=== PATIENT | male | born 1945 | race Caucasian/White ===

== ENCOUNTER → 2020-03-21 | Outpatient (CLI) | payer MEDICARE ==
[~2020-03-21] VITALS: Ht 177 cm; Wt 110.0 kg
[~2020-03-21] MED LIST: BAMLANIVIMAB 700 MG in NS 200 ML IV ONE; EPINEPHrine INJECTION 1 MG/ML AMP IM PRN; diphenhydrAMINE 50 MG/ML INJ (BENADRYL) IV PRN
[2020-03-21 11:40] VITALS: BP 118/79
[2020-03-21 13:33] VITALS: BP 122/66
== END ==
LOC: INFUSION 11:10
PROVIDERS: ATTEND Nurse Practitioner Family
DX: U07.1 COVID-19 (principal)

== ENCOUNTER 2021-05-09 10:14 | Inpatient (IN) | payer MEDICARE ==
[~2021-05-09] VITALS: Ht 167.7 cm; Wt 97.8 kg
[2021-05-09] MEDS ORDERED: LACTULOSE SYRUP 10GM/15ML (ENULOSE) 30ML UDC PO PRN (12:30)
[2021-05-09] MEDS ORDERED: ACETAMINOPHEN 325 MG TABLET PO PRN (12:30)
[2021-05-09] MEDS ORDERED: diphenhydrAMINE 25 MG TAB (BENADRYL) PO PRN (12:30)
[2021-05-09] MEDS ORDERED: FLEET ENEMA ADULT 1 EA BTL PR PRN (12:30)
[2021-05-09] MEDS ORDERED: ONDANSETRON 4 MG (ZOFRAN) ORAL DISSOLVE TAB PO PRN (12:30)
[2021-05-09] MEDS ORDERED: LOPERAMIDE 2 MG (IMODIUM) TABLET PO PRN (12:30)
[2021-05-09] MEDS ORDERED: VANCOMYCIN INJECTION 1,000 MG in NS (IVPB) 250 ML IV SCH (12:30)
[2021-05-09] MEDS ORDERED: CALCIUM CARBONATE 500 MG (TUMS) TAB.CHEW PO PRN (12:30)
[2021-05-09] MEDS ORDERED: guaiFENesin/CODEINE (ROBITUSSIN AC) 10ML UDC PO PRN (12:30)
[2021-05-09] MEDS ORDERED: BISACODYL 10 MG SUPP (DULCOLAX) PR PRN (12:30)
[2021-05-09] MEDS ORDERED: DOCUSATE SODIUM 100 MG (COLACE) CAP PO PRN (12:30)
[2021-05-09] MEDS ORDERED: MELATONIN 3 MG TABLET PO PRN (12:30)
[2021-05-09] MEDS ORDERED: PIPERACILLIN SODIUM/TAZOBACTAM 4.5 GM in NS (IVPB) 100 ML IV SCH (12:30)
--- NOTE | 2021-05-09 12:30 | PM&R Post Admission Assessment ---
PM&R Date of Visit: May 09, 2021 Time of Visit: 14:00 History of Present Illness Chief complaint: Slow recovery following lumbar spine surgery from spondylosis of lumbar spine with myelopathy History of present illness: This is a 76-year-old white male of Dr. Perez who presents to inpatient rehab after transferred from [facility] status post admission for presumed postoperative infection 2 weeks after lumbar spine s urgery which was very complicated requiring 2 units of blood postoperatively and atrial fibrillation issues requiring modification of his regular medications. He was admitted due to severe pain and MRI showed no evidence of any infection or fluid collection. He was found to have aspiration pneumonia placed on Zosyn and vancomycin and blood cultures are positive for gram-positive cocci. Patient will have a PICC line placed. His is at the bedside. He remains with a Li catheter and will remove soon. He will be maintained on Plavix and Eliquis. Cardiology will be consulted for variation of atrial fibrillation rate. Past Nqpmauc-Rvcazq-Astmlm Hx Past Med/Social Hx: Reviewed Nursing Past Med/Soc Hx, Reviewed and Corrections made Patient Social History Marrital Status: Employed/Student: retired Alcohol Use: Denies Use Smoking Status: Former Smoker Past Medical History Surgeries: Orthopedic Respiratory: COPD, Pneumonia Currently Using CPAP: No Cardiac: Atrial Fibrillation, Cardiomyopathy, Chronic Edema/Swelling, Coronary Artery Disease, High Cholesterol, Hypertension Neurological: Neuropathy Genitourinary: Benign Prostatic Hyperpl, Renal Failure Gastrointestinal: Gastroesophageal Reflux Musculoskeletal: Arthritis, Chronic Back Pain Endocrine: Diabetes, Insulin dep PM&R Allergy/Meds/Data Review Allergies Coded Allergies: No Known Drug Allergies (Unverified , 03/21/20) Home Medications Scheduled Apixaban (Eliquis), 5 MG PO BID, (Reported) Clopidogrel Bisulfate (Plavix), 75 MG PO DAILY, (Reported) Diltiazem HCl (Diltiazem 24Hr ER), 300 MG PO DAILY, (Reported) Fluticasone Propionate (Flonase Allergy Relief), 2 SPRAY NSEACH HS, (Reported) Furosemide (Furosemide), 40 MG PO DAILY, (Reported) Lenalidomide (Revlimid), 10 MG PO HS, (Reported) Linaclotide (Linzess), 290 MCG PO DAILY, (Reported) Metformin HCl (Metformin HCl), 500 MG PO HS, (Reported) Metoprolol Succinate (Metoprolol Succinate), 50 MG PO BID, (Reported) Pantoprazole Sodium (Pantoprazole Sodium), 40 MG PO DAILY, (Reported) Spironolactone (Spironolactone), 25 MG PO DAILY, (Reported) Tamsulosin HCl (Flomax), 0.4 MG PO DAILY, (Reported) Vit A/Vit C/Vit E/Zinc/Copper (Preservision Areds Tablet), 1 EACH PO DAILY, (Reported) Scheduled PRN Albuterol Sulfate (Proair Hfa), 2 PUFF IH Q4H PRN for SHORTNESS OF BREATH, (Reported) Diclofenac Sodium (Voltaren Arthritis Pain), 1 APPLIC TP Q6H PRN for PAIN- BREAKTHROUGH, (Reported) Dicyclomine HCl (Dicyclomine HCl), 10 MG PO QID PRN for STOMACH CRAMPS, (Reported) Naloxone HCl (Naloxone HCl), 1 SPRAY NA UD PRN for OPIOID OVERDOSE, (Reported) Nitroglycerin (Nitroglycerin), 0.4 MG SL UD PRN for CHEST PAIN, (Reported) Polyethylene Glycol 3350 (Miralax), 17 GM PO DAILY PRN for CONSTIPATION-2ND LINE, (Reported) Discontinued Medications Colestipol HCl (Colestipol HCl), 1 GM PO, (Reported) Discontinued Reason: No Longer Taking Diltiazem HCl (Tiazac), 300 MG PO DAILY, (Reported) Discontinued Reason: Duplicate Order Current Medications Current Medications Reviewed Review of Systems Constitutional: see HPI, dizziness, malaise, weakness EENTM: no symptoms reported Respiratory: dyspnea on exertion Cardiovascular: no symptoms reported Gastrointestinal: no symptoms reported Genitourinary: other (Retention) Musculoskeletal: back pain Skin: see HPI Psychiatric/Neurological: Anxiety All Other Systems Reviewed Negative Unless Noted: Yes Physical Exam Physical Exam Vital Signs Capillary Refill : Height, Weight, BMI Height: '" Weight: lbs. oz. kg; BMI Method: General Appearance: No Apparent Distress, WD/WN, Chronically ill Eyes: Bilateral Eye Normal Inspection, Bilateral Eye PERRL HEENT: PERRL/EOMI, Normal ENT Inspection, Pharynx Normal Neck: Full Range of Motion, Normal Inspection, Non Tender, Supple, Carotid Bruit Respiratory: Chest Non Tender, Lungs Clear, Normal Breath Sounds, No Accessory Muscle Use, No Respiratory Distress Cardiovascular: No Edema, No Gallop, No JVD, No Murmur, Normal Peripheral Pulses, Irregularly Irregular Gastrointestinal: Normal Bowel Sounds, No Organomegaly, No Pulsatile Mass, Non Tender, Soft Back: CVA Tenderness (L), CVA Tenderness (R), Decreased Range of Motion, Vertebral Tenderness Extremity: Normal Capillary Refill, Normal Inspection, Normal Range of Motion, Non Tender, No Calf Tenderness, No Pedal Edema Neurologic/Psychiatric: Alert, Oriented x3, No Motor/Sensory Deficits, Normal 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, 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 Norm as Tested, Abnormal Gait, Motor Weakness (Generalized and legs 3/5) Skin: Normal Color, Warm/Dry Lymphatic: No Adenopathy PM&R Medical Assessment & Plan REHAB/MEDICAL ASSESSMENT AND PLAN: REHAB IMPAIRMENT GROUP: Lumbar spondylosis with myelopathy ETIOLOGIC DIAGNOSIS: Lumbar spondylosis with myelopathy The comorbidities that impact the patients function and/or functional outcome by: Advanced age, severe weakness, recent major lumbar spine surgery, aspiration pneumonia REHAB PLAN: The patient is being admitted to our comprehensive inpatient rehabilitation facility and can tolerate the intensity of service consisting of at least: 180 minutes of therapy a day, 5 out of 7 days a week Rehab treatment will consist of: PT and OT will focus on regaining function with the use of assistive devices in order to increase independence in ADLs to go back home with The patient/family has a good understanding of our discharge process and will benefit from an interdisciplinary inpatient rehabilitation program. The patient has potential to make improvement and is in need of at least two of the following multidisciplinary therapies including but not limited to physical, occupational, speech, and prosthetics and orthotics. Additionally the patient will need services from respiratory, nutritional services, wound care, psychology, etc. (Customize this to each patient). Given the patients complex condition and risk of further medical complications, rehabilitation services cannot be safely or effectively provided at a lower level of care such as a [facility] facility. BARRIERS TO DISCHARGE: Severe back pain ESTIMATED LOS: 10 days DISPOSITION: Home with RELEVANT CHANGES SINCE PREADMISSION SCREENING: I have compared the patients medical and functional status at the time of the preadmission screening and there are: No changes PROGNOSIS: Good REHABILITATION GOALS: 1. PT and OT will focus on regaining function with the use of assistive devices in order to increase independence in ADLs to go back home with All the above goals were reviewed with the patient and he/she is in agreement. By signing this document, I acknowledge that I have personally performed a full physical examination on this patient within 24 hours of admission to this inpatient rehabilitation facility and have determined the patient to be able to tolerate the above course of treatment at an intensive level for a reasonable period of time. I will be completing a detailed individualized Plan of Care for this patient by day #4 of the patients stay based upon the Preadmission Screen, the Post-Admission Evaluation, and the therapy evaluations. Admission Dx/Comorbidities: (1) Spondylosis of lumbar spine with myelopathy ICD Codes: M47.16 - Other spondylosis with myelopathy, lumbar region Assessment/Plan Assessment and Plan Assess & Plan/Chief Complaint Assessment: Lumbar spine surgery with slow recovery and failure at home due to spondylosis with myelopathy Aspiration pneumonia currently on Zosyn and Vanco Postoperative anemia received 2 units of blood 2 weeks ago Atrial fibrillation with variation in rate consulting cardiology CAD previous stents maintained on Plavix Hypertension Hyperlipidemia Li cath in place Bacteremia with gram-positive cocci PICC line was placed Plan: Pain control Li cath will be discontinued soon PICC line IV antibiotics Aggressive rehab DIANE DAMIAN DO May 09, 2021 12:30
[2021-05-09] MEDS ORDERED: METF-397 PO (12:58)
[2021-05-09] MEDS ORDERED: DICL20GE TP (12:58)
[2021-05-09] MEDS ORDERED: LINA290C PO (12:58)
[2021-05-09] MEDS ORDERED: CLOP75TA69 PO (12:58)
[2021-05-09] MEDS ORDERED: APIX5TAB PO (12:58)
[2021-05-09] MEDS ORDERED: METO50TA7 PO (12:58)
[2021-05-09] MEDS ORDERED: TMSL.4C PO (12:58)
[2021-05-09] MEDS ORDERED: RT-ALBUINH IH (12:58)
[2021-05-09] MEDS ORDERED: SPIR25TA5 PO (12:58)
[2021-05-09] MEDS ORDERED: FURO40TA4 PO (12:58)
[2021-05-09] MEDS ORDERED: DICY10CA12 PO (12:58)
[2021-05-09] MEDS ORDERED: COLE1TAB PO (12:58)
[2021-05-09] MEDS ORDERED: FLUT9.9S NSEACH (12:58)
[2021-05-09] MEDS ORDERED: NITR0.4T39 SL (12:58)
[2021-05-09] MEDS ORDERED: PANT40TA52 PO (12:58)
[2021-05-09] MEDS ORDERED: BETA1TAB15 PO (12:58)
[2021-05-09] MEDS ORDERED: DILT300C64 PO (12:58)
[2021-05-09] MEDS ORDERED: POLY17PO6 PO (12:58)
--- OUTSIDE RECORDS SUMMARY | 2021-05-09 12:59 | XMS REPORT | Clinical Summary ---
Author Author [facility] Organization [facility] Address Unknown Phone Unavailable Care Team Providers Care Return Clerk Name Role Phone ChrisCody PCP Annette Padilla MD Unavailable Source Comments Some departments are not documenting in the electronic medical record. If you d o not see the information that you expected, contact Release of Information in [facility] Health Information Management department at [phone] for further assistan ce in locating additional records.[facility] Allergies No known active allergies Medications End Date Status Medication Sig Dispensed Refills Start Date Active amiodarone (CORDARONE) Take 400 mg 0 02 200 mg tablet by mouth 0 daily. Active ELIQUIS 5 mg tablet Take 5 mg by 0 mouth twice 0 daily. Active baclofen (LIORESAL) 10 mg Take 10 mg by 0 / tablet mouth twice 0 daily. Active clopiDOGrel (PLAVIX) 75 Take 1 tablet 0 mg tablet by mouth 0 daily. Active furosemide (LASIX) 40 mg Take 40 mg by 0 08/24 tablet mouth daily. 0 Active lisinopriL (ZESTRIL) 5 mg Take 5 mg by 0 / tablet mouth daily. 0 Active metFORMIN (GLUCOPHAGE) Take 500 mg 0 02 500 mg tablet by mouth 0 twice daily. Active metoprolol XL (TOPROL XL) Take 50 mg by 0 07/21 50 mg extended release mouth twice 0 tablet daily. Active nitroglycerin (NITROSTAT) Place 0.4 mg 0 /0 0.4 mg tablet under tongue. 0 Dissolve one tab under the tongue every 5 min as needed for chest pain. Do not exceed a total of 3 doses in 15 min. Active ondansetron (ZOFRAN ODT) Dissolve 1 0 09/04 4 mg rapid dissolve tablet by 0 tablet mouth three times daily as needed. Active traMADoL (ULTRAM) 50 mg Take 50 mg by 0 tablet mouth four 0 times daily as needed. Active docusate (COLACE) 100 mg Take 100 mg 0 capsule by mouth twice daily. Active aspirin EC 81 mg tablet Take 81 mg by 0 mouth daily. Take with food. Active polyethylene glycol 3350 Take by 0 (MIRALAX PO) mouth as Needed. Active MAGNESIUM CITRATE PO Take 5 oz by 0 mouth as Needed. Active famotidine (PEPCID) 40 mg Take 40 mg by 0 tablet mouth daily. Active fluticasone propionate Apply 1 spray 0 (FLONASE) 50 to each mcg/actuation nasal nostril as spray, suspension directed daily. Shake bottle gently before using. Active metoclopramide (REGLAN) Take 10 mg by 0 10 mg tablet mouth before meals and at bedtime. Active pantoprazole DR Take 40 mg by 0 (PROTONIX) 40 mg tablet mouth every 1 12 hours. Active HYDROcodone/acetaminophen TAKE 1 TO 2 0 /2 (NORCO) 5/325 mg tablet TABLETS BY 1 MOUTH EVERY 8 HOURS NEEDED FOR CANCER PAIN Active acyclovir (ZOVIRAX) 400 Take 400 mg 0 mg tablet by mouth 1 twice daily. Active Problems Problem Noted Date Multiple myeloma not having achieved remission 09/09 Last Assessment & Plan: Formatting of this note might be differ ent from the original. A 74-year-old male patient wi th a known history of coronary disease, CABG in 2012, atrial fibrillat ion, hypertension, diabetes mellitus who was complaining of chest pain and l ower back pain that has been worsening. During evaluation he had an MRI that showed T8 12 mass with cord compression and required patient t o had surgery with a laminectomy, the biopsy of the mass showed plasmacyt radha and due to that patient had an extensive work-up including a bone coretta ow biopsy that showed 5% monoclonal plasma cell with kappa expression plasm a cell neoplasm. A PET CT scan did not show any lytic lesions. Also his m yeloma markers were consistent with mild elevation of the serum free kappa light chain. 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 I had a prolonged discussion with the p atient/family in regard to diagnosis is consistent with solitary p lasmacytoma with a recommendation to proceed with radiation therapy Recommendation: Proceed with radiation therapy Patient will need to have laboratory te st every 3 months in the first year and then switch to every 6 months which include CBC/CMP/SPEP/total immunoglobulin/serum free light chain Recommend to consider MRI of the lumbar spine at least once a year Iron deficiency anemia 09/10/2019 Last Assessment & Plan: Formatting of this note might be differ ent from the original. Pt has a Hb of 9.5, with absent iron st orage, pt states that he is unable to tolerate the PO replacement. Possibl e will benefit from IV iron if unable to tolerate that Essential hypertension Last Assessment & Plan: Formatting of this note might be differ ent from the original. On Metoprolol and lisinopril Diabetes mellitus Last Assessment & Plan: Formatting of this note might be differ ent from the original. On Metformin Atrial fibrillation Last Assessment & Plan: Formatting of this note might be differ ent from the original. On Amiodarone and Eliquis per his cardi ologist Surgical History Surgery Date Site/Laterality Comments HX HEMORRHOIDECTOMY 03/22/1996 - 03/21/1997 HX ROTATOR CUFF REPAIR 03/22/2003 - 03/21/2004 CARDIOVERSION 07/21/2019 - 08/20/2019 KNEE REPLACEMENT 03/22/2004 - Left 03/21/2005 KNEE REPLACEMENT 03/22/2009 - Right 03/21/2010 CARDIAC SURGERY 03/22/2012 - tripple bypass 04/21/2012 Medical History Medical History Date Comments Arthritis Back pain Diabetes (HCC) Heart disease High blood pressure Macular degeneration Essential hypertension Diabetes mellitus (HCC) Atrial fibrillation (HCC) Coronary artery disease Family History Medical History Relation Name Comments None Reported Father None Reported Mother Relation Name Status Comments Father Mother Social History Date Tobacco Use Types Packs/Day Years Used Quit: 03/2012 Former Smoker Cigarettes 1 50 Smokeless Tobacco: Never Used Comments Alcohol Use Standard Drinks/Week Not Currently 0 (1 standard drink = 0.6 o z pure alcohol) Sex Assigned at Date Recorded Male 09/07/2019 10:39 AM CDT Obstetrics History Last Filed Vital Signs Reading Time Taken Comments Vital Sign 125/86 08/14/2020 4:00 PM CDT Blood Pressure 104 08/14/2020 4:06 PM CDT Pulse 36.7 C (98.1 F) 08/14/2020 3:35 PM CDT Temperature - - Respiratory Rate 92% 08/14/2020 4:06 PM CDT Oxygen Saturation - - Inhaled Oxygen Concentration 104.8 kg (231 lb) 08/14/2020 2:32 PM CDT Weight 180.3 cm (5' 11") 08/14/2020 2:32 PM CDT Height 32.22 08/14/2020 2:32 PM CDT Body Mass Index Plan of Treatment Health Maintenance Due Date Last Done Comments HBA1C 1945 MEDICARE ANNUAL WELLNESS 1943 VISIT PNEUMONIA (PPSV23) 1949 VACCINE (1 of 4 - PCV13) DILATED EYE EXAM 1961 DTAP/TDAP VACCINES (1 - 1961 Tdap) FOOT EXAM 1961 HEPATITIS C SCREENING 1961 PHYSICAL (COMPREHENSIVE) 1961 EXAM SHINGLES RECOMBINANT 1993 VACCINE (1 of 2) INFLUENZA VACCINE 10/20/2020 02/01/2020 Results Not on filefrom Last 3 Months Insurance Type Payer Benefit Subscriber ID Effective Phone Address Plan / Dates Group Medicare MEDICARE MEDICARE [id number] [phone]- [phone] [address] [place] [address] [employer] AETNA [id number] 2017-P [phone] [id number] [place] [address] [place] (Home) [place] [phone] Advance Directives Patient Cheese Pancake Roller Explanation Type Date Recorded Advance Directive/DPOA Care Teams Start Date End Date Return Clerk Relationship Specialty 09/04/19 Cody Perez DO PCP - General Family [address] Medicine [place] [id number] 09/11/19 Annette Padilla MD [address] [address]
[2021-05-09] MEDS ORDERED: DILT300C52 PO (13:13)
[2021-05-09] MEDS ORDERED: LENA10CA PO (13:13)
--- NOTE | 2021-05-09 13:13 | ST Cognitive Linguistic Eval ---
Speech Evaluation-General Therapy Diagnosis Therapy Diagnosis: Cognitive Linguistic Skills WNL Precautions Precautions: Fall Precautions/Isolations: Standard Precautions Referral Referring Physician: Dr. Ruthann Dooley Reason for Referral: Evaluation/Treatment Medical History Current History The patient is a 76 year-old male with a past medical history of lumbar stenosis with neurogenic claudication, s/p L4-S1 right TLIF/posterior spinal fusion and L2 pelvis extension of fusion (04/21/21) with recent re-admission on 05/07/21 with wound drainage and pneumonia. Reviewed History: Yes Speech PLF-Current Status Prior Level of Function The patient was independent with ADL's and used a FWW. Subjective The patient was lying in bed, awake and alert upon entrance to the patient's room. The patient greeted the clinician appropriately and was agreeable to participation in the cognitive linguistic assessment. The patient denied any recent changes or concerns with his speech, language or cognitive abilities. Language Eval: Auditory Comprehends Simple Yes/No Ques: Functional Indent/Objects Multiple Gonzalez: Functional Follows 1-Step Commands: Functional Follows Complex Directions: Functional Follows General Conversations: Functional Language Eval: Verbal Language Completes Spontaneous Greeting: Functional Produces Auto, Serial Info: Functional Imitates Simple Words/Phrases: Functional Word Finding: Functional Requests Basic Needs: Functional States Basic Personal Info: Functional Expresses Complex Ideas: Functional Language Evaluation: Reading Follows Simple Written Direct: Functional Cognitive Patient Orientation The patient was independently oriented to self, location, month, day of week, and year. Objective Cognitive Domain Attention: WNL Memory: WNL Problem Solving: Functional Executive Functions: WNL Composite Severity Rating: WNL Objective Formal/Standardized Tests [facility] ([facility]) Results The patient demonstrated a result of +29/30 on the UMS correlating to a neuro cognitive ability WNL. Oral Motor/Speech Production The patient does not display dysarthria or apraxia of speech throughout the evaluation. The patient is 100% intelligible in known and unknown contexts. Impression The patient demonstrated neurocognitive skills within normal limits. The patient displayed one error during delayed recall, as he was able to recall four of five single words, independently. Speech Patient Assess Expression of Ideas/Wants: Expression (4) Understanding Verbal Content: Understands (4) Brief Interview-Mental Status: Yes Repetition of Three Words: Three (3) Temporal Orientation: Year: Correct (3) Temporal Orientation: Month: Accurate within 5 days(2) Temporal Orientation: Day: Correct (1) Recall : Wear to say "Sock": Yes, no cue required (2) Recall : Color: Yes, no cue required (2) Recall : Bed: Yes,after cueing (1) Memory/Recall Ability: Current season, That he or she is in a hsp/hsp unit Speech-Plan Patient/Family Goals Patient/Family Goals: The patient wishes to return home with family. Treatment Plan Speech Therapy Treatment Plan: Discontinue ST Frequency: 1 time per week Estimated Hrs Per Day: .5 hour per day Rehab Potential: Fair Pt/Family Agrees to Plan: Yes Safety Risks/Education Teaching Recipient: Patient, Family Teaching Methods: Discussion Response to Teaching: Verbalize Understanding Education Topics Provided: Plan of Care Time Speech Therapy Time In: 12:30 Speech Therapy Time Out: 13:00 Total Billed Time: 30 Billed Treatment Time 1, ADNIELA MCNEILL [facility] [address] May 09, 2021 13:13
[2021-05-09] MEDS ORDERED: NALO4SPR3 (13:19)
[2021-05-09] MEDS ORDERED: PIPERACILLIN SODIUM/TAZOBACTAM 4.5 GM in NS (IVPB) 100 ML IV NR (14:00)
[2021-05-09] MEDS ORDERED: VANCOMYCIN 1,750 MG/NS 500 ML IVPB IV NR ×2 (14:00)
[2021-05-09] MEDS ORDERED: CATHETER FLUSH 10 ML SYR IV PRN (14:00)
--- NOTE | 2021-05-09 14:01 | Physical Therapy Evaluation ---
PT Evaluation-General Medical Diagnosis Admission Date May 09, 2021 at 12:30 Medical Diagnosis: lumbar stenosis with neurogenic claudication Onset Date: May 07, 2021 Therapy Diagnosis Therapy Diagnosis: impaired mobility, strength, endurance Precautions Precautions/Isolations: Standard Precautions Weight Bear Status back precautions Referral Physician: Ruthann Dooley DO Reason for Referral: Evaluation/Treatment Medical History Additional Medical History s/p L4-S1 R TLIF, posterior fusion and L2 pelvis extension and fusion, readmitted 04/06 for wound drainage and PNA Reviewed History: Yes Social History Home: Single Level Current Living Status: Spouse Entry Into Home: Stairs With Railing Prior Prior Level of Function SCALE: Activities may be completed with or without assistive devices. 6-Bmoxdwttxf-frzryyh completes the activity by him/herself with no assistance from a helper. 5-Set-up or Clean-up Assistance-helper sets up or cleans up; patient completes activity. [place] assists only prior to or following the activity. 4-Supervision or Touching Assistance-helper provides verbal cues and/or touching/steadying and/or contact guard assistance as patient completes activity. Assistance may be provided throughout the activity or intermittently. 3-Partial/Moderate Assistance-helper does LESS THAN HALF the effort. [place] lifts, holds or supports trunk or limbs, but provides less than half the effort. 2-Substantial/Maximal Assistance-helper does MORE THAN HALF the effort. [place] l ifts or holds trunk or limbs and provides more than half the effort. 0-Tkdjinldw-pwqfwv does ALL the effort. Patient does none of the effort to complete the activity. Or, the assistance of 2 or more helpers is required for the patient to complete the activity. If activity was not attempted, code reason: 7-Patient Refused. 9-Not Applicable-not attempted and the patient did not perform the activity before the current illness, exacerbation or injury. 10-Not Attempted due to Environmental Limitations-(lack of equipment, weather restraints, etc.). 88-Not Attempted due to Medical Conditions or Safety Concerns. Bed Mobility: 6 Transfers (B,C,W/C): 6 Gait: 6 Stairs: 6 Indoor Mobility (Ambulation): Independent Stairs: Independent most recently using a rolling walker but previous to recent surgeries was using a SPC PT Evaluation-Current Subjective Patient in bed pre tx, agrees to PT, has 8/10 back pain, nurse notified. Will be co-treating with OT due to poor patient mobility, strength, endurance, severe pain with activity, coordinate UE and LE with activity, safety and reduce risk of falls. Pt/Family Goals to be independent at home Objective Patient Orientation: Person, Place, Situation back brace ROM/Strength ROM Lower Extremities WNL Strength Lower Extremities LLE (hip flexion 4/5, knee flexion 5/5, knee extension 5/5, dorsiflexion 5/5), RLE (hip flexion 3-/5, knee flexion 4/5, knee extension 4/5, dorsiflexion 4/5) Sensory Sensation Right Lower Extremit: Intact Sensation Left Lower Extremity: Intact Transfers Roll Left & Right (QC): 3 Sit to Lying (QC): 3 Lying to Sitting/Side of Bed(Q: 3 Sit to Stand (QC): 4 Chair/Wvz-fq-Llkeb Xfer(QC): 4 Toilet Transfer (QC): 4 Car Transfer (QC): 4 Patient performs rolling and supine <-> sit with min assist, sit <-> stand and transfers with CGA, car transfer CGA. Patient needs occasional cues for safety or positioning, training for log roll Gait Does the Patient Walk?: Yes Mode of Locomotion: Walk Anticipated Mode of Locomotion: Walk Walk 10 feet (QC): 4 Walk 50 ft with 2 Turns(QC): 4 Walk 150 ft (QC): 88 Walking 10ft/uneven surface-QC: 4 Distance: 50'x2 Gait Assistive Device: FWW Comments/Gait Description Patient can ambulate 50' with a rolling walker with CGA (including 50' with at least 2 turns of 90 degrees and 10' over an uneven surface), gait is antalgic, slow, but steady, slumped posture Wheelchair Training Does the Pt Use a Wheelchair?: No Wheel 50 ft with 2 turns (QC): 9 Wheel 150 ft (QC): 9 Stairs #of Steps: 1 1 Step (curb) (QC): 4 4 Steps (QC): 88 12 Steps (QC): 88 Walking Assistive Device: Walker Patient can go up and down 1 step using a rolling walker with CGA, cues for foot placement Balance Sitting Static: Good Sitting Dynamic: Good Standing Static: Good Standing Dynamic: Good Picking up an Object (QC): 4 (CGA using fly rail operator) Treatment Patient performed some dressing and bathing sitting at the EOB, patient also toileted for a BM, did toilet transfer with CGA. PT performed bed mobility and transfers, ambulation, stair training, toilet transfers, standing and positioning during dressing and bathing, OT performed dressing, bathing, toileting, UE positioning and safety during activity. Assessment/Needs Patient in recliner post tx, TAKER OFF DRYING KILN will take over from here. Patient has impaired mobility, strength, endurance, severe pain with activity. Transfers and ambulation are just CGA but needs min assist for supine to sit. Rehab Potential: Fair PT Short Term Goals Short Term Goals Time Frame: May 16, 2021 Roll Left & Right: 4 (SBA) Sit to lyin (SA) Lying to sitting on side of be: 4 (SBA) Sit to stand: 4 (SBA) Chair/psz-ly-sgoix transfer: 4 (SBA) Walk 10 feet: 4 (SBA) Walk 50 feet with two turns: 4 (SBA) Walk 150 feet: 4 (SBA) PT Care Home Goals Software Computer Specialist Goals PT Software Computer Specialist Goals Time Frame: May 30, 2021 Roll Left & Right (QC): 6 Sit to Lying (QC): 6 Lying-Sitting on Side/Bed(QC): 6 Sit to Stand (QC): 6 Chair/Lss-db-Jnvlk Xfer(QC): 6 Toilet Transfer (QC): 6 Car Transfer (QC): 6 Does the Patient Walk: Yes Walk 10 feet (QC): 6 Walk 50ft with 2 Turns (QC): 6 Walk 150 ft (QC): 6 Walking 10ft on Uneven Surface: 6 1 Step (curb) (QC): 4 (SBA) 4 Steps (QC): 4 (SBA) 12 Steps (QC): 88 Picking up an Object (QC): 6 Wheel 50 feet with 2 turns (QC: 9 Wheel 150 feet: 9 PT Plan Problem List Problem List: Activity Tolerance, Functional Strength, Safety, Balance, Gait, Transfer, Bed Mobility, ROM Treatment/Plan Treatment Plan: Continue Plan of Care Treatment Plan: Bed Mobility, Education, Functional Activity Catracho, Functional Strength, Group Therapy, Gait, Safety, Therapeutic Exercise, Transfers Treatment Duration: May 30, 2021 Frequency: At least 5 of 7 days/Wk (IRF) Estimated Hrs Per Day: 1.5 hours per day Patient and/or Family Agrees t: Yes Safety Risks/Education Patient Education: Gait Training, Transfer Techniques, Steps, Reviewed Precautions, Correct Positioning, Reviewed Don/Doff Brace, Safety Issues Teaching Recipient: Patient Teaching Methods: Demonstration, Discussion Response to Teaching: Reinforcement Needed Discharge Recommendations Plan Patient will perform bed mobility and transfer training, balance and endurance training, functional strengthening, stair training, gait training, and education, to improve functional mobility and independence at home. Therapy Discharge Recommendati: Home & Family Time/GCodes Time In: 1310 Time Out: 1350 Total Billed Treatment Time: 40 Total Billed Treatment 1 visit EVM 10' FA 30' GILDARDO GUERRA PT May 09, 2021 14:01
--- NOTE | 2021-05-09 14:03 | Occupational Therapy Eval ---
OT Evaluation-General/PLF Medical Diagnosis Admission Date May 09, 2021 at 12:30 Medical Diagnosis: s/p Lumbar stenosis Onset Date: May 07, 2021 Therapy Diagnosis Therapy Diagnosis: reduced adl status Precautions Precautions/Isolations: Fall Prevention, Standard Precautions Comments spinal precautions Back brace on when OOB Referral Physician: Soumya Mccollum Reason: Evaluation/Treatment Medical History Pertinent Medical History: Atrial Fib, CAD, DM, GERD, Heart Failure, HTN, Macular Degenertion Additional Medical History Anemia, cancer Current History s/p L4-S1 R TLIF, posterior fusion and L2 pelvis extension and fusion, readmitted 04/06 for wound drainage and PNA Pt lives in a single story home with his . Post surgery he reports that he went home and was indep with adls except needed assist with donning sock/shoes. His performs all the IADLS. He was using a cane prior to back surgery and using a walker post surgery. Reviewed History: Yes Social History Home: Single Level Current Living Status: Spouse Entry Into Home: Stairs With Railing Steps Into Home: 2 ADL-Prior Level of Function SCALE: Activities may be completed with or without assistive devices. 3-Glddeogfur-lgvgfff completes the activity by him/herself with no assistance from a helper. 5-Set-up or Clean-up Assistance-helper sets up or cleans up; patient completes activity. [place] assists only prior to or following the activity. 4-Supervision or Touching Assistance-helper provides verbal cues and/or touching/steadying and/or contact guard assistance as patient completes activity. Assistance may be provided throughout the activity or intermittently. 3-Partial/Moderate Assistance-helper does LESS THAN HALF the effort. [place] lifts, holds or supports trunk or limbs, but provides less than half the effort. 2-Substantial/Maximal Assistance-helper does MORE THAN HALF the effort. [place] lifts or holds trunk or limbs and provides more than half the effort. 3-Usicealsb-utrxdz does ALL the effort. Patient does none of the effort to complete the activity. Or, the assistance of 2 or more helpers is required for the patient to complete the activity. If activity was not attempted, code reason: 7-Patient Refused. 9-Not Applicable-not attempted and the patient did not perform the activity before the current illness, exacerbation or injury. 10-Not Attempted due to Environmental Limitations-(lack of equipment, weather restraints, etc.). 88-Not Attempted due to Medical Conditions or Safety Concerns. Self Care: Needed Some Help Functional Cognition: Independent DME/Equipment: Tub, Tub/Shower Drive Self: Yes OT Current Status Subjective Pt with severe pain in back, reports 8/10. Unsure of last pain meds. Co-treat with PT for part of session secondary to poor activity tolerance, high pain levels, and need of 2 skilled clinicians to progress indep with adls and transfers. Appearance Pt left sitting on toilet, MARRERO in room to take over treatment. Mental Status/Objective Patient Orientation: Person, Place, Situation Attachments: IV Current Hearing Aids: No Dentures/Partials: Yes Hand Dominance: Right Upper Extremity Strength Not tested secondary to recent back surgery ADL-Treatment Eating (QC): 6 Oral Hygiene (QC): 4 (pt reports he only rinses dentures. Able to perform standing at sink with CGA) Shower/Bathe Self (QC): 3 Upper Body Dressing (QC): 10 (no appropriate size clothing available at time of eval) Lower Body Dressing (QC): 2 On/Off Footwear (QC): 2 Toileting Hygiene (QC): 3 (Assist with yolis care) Pt sidelying in bed at OT arrival. Able to sit EOB with min A. Pt declines shower, agreeable to sponge bath seated EOB. Post set up, he was able to wash upper body, thighs, and down to left foot with use of cross over method and extra effort. Pt unable to lift R foot high enough off floor due to pain, assist needed. Pt could benefit from instruction on AE for LB dressing/bathing. He was able to stand with CGA to wash front yolis area. Attempt to reach backside, but unable without twisting or bending, thus assist required. Due to pain, assist required to thread BLE's into brief after effortful attempt. He stood to cake puller hips with CGA. Again, he was able to cross L foot with extra effort but required max a to thread sock over toes. Dependent to don L sock. Pt able to recall 2/3 spinal precautions. Other Treatments Pt ambulated ~50 feet x2 with CGA and use of walker. He fatigues quickly secondary to increase in pain. Several seated rest breaks required during session. Education OT Patient Education: Correct positioning, Energy conservation, Modified ADL techniques, Purpose of tx/functional activities, Reviewed precautions, Rehab process, Safety issues, Transfer techniques Teaching Recipient: Patient Teaching Methods: Demonstration, Discussion Response to Teaching: Verbalize Understanding, Return Demonstration, Reinforcement Needed OT Short Term Goals Short Term Goals Time Frame: May 16, 2021 Eatin Oral hygiene: 6 Toileting hygiene: 5 Shower/bathe self: 4 Upper body dressin Lower body dressin Putting on/taking off footwear: 3 OT Systems Technologist Goals Correction Goals Time Frame: May 23, 2021 Eating (QC): 6 Oral Hygiene (QC): 6 Toileting Hygiene (QC): 6 Shower/Bathe Self (QC): 5 Upper Body Dressing (QC): 6 Lower Body Dressing (QC): 6 On/Off Footwear (QC): 5 1=Demonstrate adherence to instructed precautions during ADL tasks. 2=Patient will verbalize/demonstrate understanding of assistive device s/modifications for ADL. 3=Patient will improve strength/tolerance for activity to enable patient to perform ADL's. OT Education/Plan Problem List/Assessment Assessment: Decreased Activ Tolerance, Decreased UE Strength, Impaired Bed Mobility, Impaired Funct Balance, Impaired Self-Care Skills Discharge Recommendations Plan/Recommendations: Continue POC Therapy Discharge Recommendati: Home & Family, Post Acute OT (home health OT) Equpiment Recommendations-D/C: Bath Chair, Pediatric Sports Medicine Specialist, Sock Aide Treatment Plan/Plan of Care Treatment,Training & Education: Yes Patient would benefit from OT for education, treatment and training to promote independence in ADL's, mobility, safety and/or upper extremity function for ADL's. Plan of Care: ADL Retraining, Functional Mobility, Group Exercise/Act as Ind, UE Funct Exercise/Act Treatment Duration: May 23, 2021 Frequency: At least 5 of 7 days/Wk (IRF) Estimated Hrs Per Day: 1.5 hours per day Agreement: Yes Rehab Potential: Good Time/GCodes Start Time: 13:00 Stop Time: 13:55 Total Time Billed (hr/min): 45 Billed Treatment Time 1 visit EVM (10 min) ADL x2 (35 min) OT eval ([id number]) PT eval ([id number]) Co-treat ([id number]) Simona Paul OT May 09, 2021 14:03
[2021-05-09] MEDS: CATHETER FLUSH 10 ML SYR IV SCH ×2 (14:27→20:37)
[2021-05-09] MEDS ORDERED: DICLOFENAC 1% GEL 100 GM (VOLTAREN) TUBE TP PRN (14:30)
[2021-05-09] MEDS ORDERED: DICYCLOMINE 10 MG (BENTYL) CAP PO PRN (14:30)
[2021-05-09] MEDS ORDERED: NITROGLYCERIN 0.4 MG SL TABS BTL 25'S SL PRN (14:30)
[2021-05-09] MEDS ORDERED: polyethylene glycoL POWDER 17 GM (MIRALAX) PACK PO PRN (14:30)
[2021-05-09] MEDS ORDERED: RT-ALBUTEROL SULF 2.5 MG/3 ML PRE-MIX VIAL IH PRN (14:30)
[2021-05-09] MEDS ORDERED: HYDROcodone/APAP 5 MG/325 MG (LORTAB) TAB ONE (14:35)
--- NOTE | 2021-05-09 14:36 | Physical Therapy Daily Note ---
PT Daily Note-Current Subjective Pt. agreeable to co Rx PT OT for functional mobility , positioning, and education. Pt. c/o 8/10 pain and requires 2 clinicians for safety and coordinated treatment . Pt. shares his home situation and recent medical history. Pt. states he has had quite the ordeal in the past couple years and mentions multiple surgeries and "bone marrow cancer" Pain Numeric Pain Scale: 8 Location: Medial Location Body Site: Back Pain Description: Pressure Appearance pt. whinces with pain and turns head slightly as he shares he is hard of hearing as well as not able to read lips b/c of MD Mental Status Patient Orientation: Normal For Age Attachments: Li Catheter Transfers SCALE: Activities may be completed with or without assistive devices. 5-Bhgsozpazo-xpoqrqi completes the activity by him/herself with no assistance from a helper. 5-Set-up or Clean-up Assistance-helper sets up or cleans up; patient completes activity. [place] assists only prior to or following the activity. 4-Supervision or Touching Assistance-helper provides verbal cues and/or touching/steadying and/or contact guard assistance as patient completes activity. Assistance may be provided throughout the activity or intermittently. 3-Partial/Moderate Assistance-helper does LESS THAN HALF the effort. [place] lifts, holds or supports trunk or limbs, but provides less than half the effort. 2-Substantial/Maximal Assistance-helper does MORE THAN HALF the effort. [place] lifts or holds trunk or limbs and provides more than half the effort. 6-Pqtjucnlo-uojvic does ALL the effort. Patient does none of the effort to complete the activity. Or, the assistance of 2 or more helpers is required for the patient to complete the activity. If activity was not attempted, code reason: 7-Patient Refused. 9-Not Applicable-not attempted and the patient did not perform the activity before the current illness, exacerbation or injury. 10-Not Attempted due to Environmental Limitations-(lack of equipment, weather restraints, etc.). 88-Not Attempted due to Medical Conditions or Safety Concerns. Sit to Stand (QC): 4 sit to stand from toilet and recliner min to mod. pt. able to push himself up in recliner with instruction with chair back partially reclined Weight Bearing back precautions Gait Training Does the Patient Walk?: Yes Walk 10 feet (QC): 4 Gait Assistive Device: FWW 25ft x 2 to from toilet with FWW CGA Treatments ice bag applied to low back area, warm blanket applied, repositioned in recliner for low back comfort, pillow at sides, pillow under knees, all in effort to ease low back pain. Nursing aware of pts c/o. Orientation to [facility] as well as what to expect this evening and this weekend. Meal brought, pt attempts to eat , states his taste has been off quite some time Assessment pt. gives full effort, trying to find relief from pain at this point PT Short Term Goals Short Term Goals Time Frame: May 16, 2021 Roll Left & Right: 4 (SBA) Sit to lyin (SA) Lying to sitting on side of be: 4 (SBA) Sit to stand: 4 (SBA) Chair/dcl-gi-ttskh transfer: 4 (SBA) Walk 10 feet: 4 (SBA) Walk 50 feet with two turns: 4 (SBA) Walk 150 feet: 4 (SBA) PT Microsoft Dynamics Consultant Goals Microsoft Dynamics Consultant Goals PT Microsoft Dynamics Consultant Goals Time Frame: May 30, 2021 Roll Left & Right (QC): 6 Sit to Lying (QC): 6 Lying-Sitting on Side/Bed(QC): 6 Sit to Stand (QC): 6 Chair/Wst-tp-Jeyny Xfer(QC): 6 Toilet Transfer (QC): 6 Car Transfer (QC): 6 Does the Patient Walk: Yes Walk 10 feet (QC): 6 Walk 50ft with 2 Turns (QC): 6 Walk 150 ft (QC): 6 Walking 10ft on Uneven Surface: 6 1 Step (curb) (QC): 4 (SBA) 4 Steps (QC): 4 (SBA) 12 Steps (QC): 88 Picking up an Object (QC): 6 Wheel 50 feet with 2 turns (QC: 9 Wheel 150 feet: 9 PT Plan Treatment/Plan Treatment Plan: Continue Plan of Care Treatment Plan: Bed Mobility, Education, Functional Activity Catracho, Functional Strength, Group Therapy, Gait, Safety, Therapeutic Exercise, Transfers Treatment Duration: May 30, 2021 Frequency: At least 5 of 7 days/Wk (IRF) Estimated Hrs Per Day: 1.5 hours per day Patient and/or Family Agrees t: Yes Safety Risks/Education Patient Education: Transfer Techniques, Correct Positioning, Disease Process, Safety Issues Teaching Recipient: Patient Teaching Methods: Demonstration, Discussion Response to Teaching: Verbalize Understanding, Return Demonstration, Reinforcement Needed Time/GCodes Time In: 1350 Time Out: 1425 Total Billed Treatment Time: 35 Total Billed Treatment 1,FA35m, (co Rx w OT 35m) KEIKO COLBY CONTRACTOR GENERAL BUILDING May 09, 2021 14:36
--- NOTE | 2021-05-09 14:51 | Occupational Ther Daily Note ---
OT Current Status-Daily Note Subjective Pt alert, sitting in recliner. Took over pt from OTR/L. Pt c/o pain 10/29, reported to nrsg. Cold pack to area then positioned for comfort, nrsg brought Tylenol. Mental Status/Objective Patient Orientation: Person, Place, Time, Situation Attachments: Li Catheter, IV, Other-See Comments (back brace) ADL-Treatment Pt requires set up to open containers/packages then uses regular utensils to eat. Pt did not eat much of meal due to increased pain, see above note on addressing pain. Therapy Code Descriptions/Definitions Functional [place] Measure: 0=Not Assessed/NA 4=Minimal Assistance 1=Total Assistance 5=Supervision or Setup 2=Maximal Assistance 6=Modified [place] 3=Moderate Assistance 7=Complete IndependenceSCALE: Activities may be completed with or without assistive devices. 9-Bipxwndslk-wfedyul completes the activity by him/herself with no assistance from a helper. 5-Set-up or Clean-up Assistance-helper sets up or cleans up; patient completes activity. [place] assists only prior to or following the activity. 4-Supervision or Touching Assistance-helper provides verbal cues and/or touching/steadying and/or contact guard assistance as patient completes activity. Assistance may be provided throughout the activity or intermittently. 3-Partial/Moderate Assistance-helper does LESS THAN HALF the effort. [place] lifts, holds or supports trunk or limbs, but provides less than half the effort. 2-Substantial/Maximal Assistance-helper does MORE THAN HALF the effort. [place] lifts or holds trunk or limbs and provides more than half the effort. 2-Ublcfvofc-heqeyg does ALL the effort. Patient does none of the effort to complete the activity. Or, the assistance of 2 or more helpers is required for the patient to complete the activity. If activity was not attempted, code reason: 7-Patient Refused. 9-Not Applicable-not attempted and the patient did not perform the activity before the current illness, exacerbation or injury. 10-Not Attempted due to Environmental Limitations-(lack of equipment, weather restraints, etc.). 88-Not Attempted due to Medical Conditions or Safety Concerns. Eating (QC): 5 Co-treat with PT, skills of 2 clinicians required to decrease pain, increase activity tolerance due to pt's decreased stamina. Other Treatment Pt able to assist with positioning in recliner while laying flat by pushing with B UE/LE. Discussion on pt's home environment. Pt has tub transfer bench for tub/shower in 's bathroom that he has been using already. Pt able to describe the transfer correctly. Pt also stated that in 's bathroom that there is a taller toilet and that he is using this for toileting. After therapy, pt positioned comfortably in recliner with call light/phone in reach. All needs met in room. OT Short Term Goals Short Term Goals Time Frame: May 16, 2021 Eatin Oral hygiene: 6 Toileting hygiene: 5 Shower/bathe self: 4 Upper body dressin Lower body dressin Putting on/taking off footwear: 3 OT Fpc Goals Transmitter Chief Goals Time Frame: May 23, 2021 Eating (QC): 6 Oral Hygiene (QC): 6 Toileting Hygiene (QC): 6 Shower/Bathe Self (QC): 5 Upper Body Dressing (QC): 6 Lower Body Dressing (QC): 6 On/Off Footwear (QC): 5 1=Demonstrate adherence to instructed precautions during ADL tasks. 2=Patient will verbalize/demonstrate understanding of assistive devices/modifications for ADL. 3=Patient will improve strength/tolerance for activity to enable patient to perform ADL's. OT Education/Plan Problem List/Assessment Assessment: Decreased Activ Tolerance, Decreased UE Strength, Impaired Self- Care Skills Discharge Recommendations Plan/Recommendations: Continue POC Treatment Plan/Plan of Care Patient would benefit from OT for education, treatment and training to promote independence in ADL's, mobility, safety and/or upper extremity function for ADL's. Plan of Care: ADL Retraining, Functional Mobility, Group Exercise/Act as Ind, UE Funct Exercise/Act Treatment Duration: May 23, 2021 Frequency: At least 5 of 7 days/Wk (IRF) Estimated Hrs Per Day: 1.5 hours per day Agreement: Yes Rehab Potential: Good Time/GCodes Start Time: 13:55 Stop Time: 14:25 Total Time Billed (hr/min): 30 Billed Treatment Time 1 visit-FA 1 (20 min) ADL 1 (10 min) Co-treat with PT 30 min BALDOMERO STEPHENS May 09, 2021 14:51
[2021-05-09 15:17] LABS: POTASSIUM 3.4 MMOL/L (3.6-5.0)
[2021-05-09 15:18] LABS: CALCIUM 7.4 MG/DL (8.5-10.1)
[2021-05-09 15:22] LABS: CREATININE SERUM 1.12 MG/DL (0.60-1.30)
[2021-05-09] MEDS ORDERED: RIVAROXABAN 20 MG TABLET (XARELTO) PO SCH (17:00)
[2021-05-09] MEDS: metFORMIN 500 MG (GLUCOPHAGE) TAB PO SCH (17:31)
--- NOTE | 2021-05-09 18:53 | Diagnostic Imaging Report ---
INDICATION: PICC line placement. FINDINGS: There is a right-sided PICC line which terminates within the distal SVC. There are interstitial changes within the lungs and diaphragmatic flattening suggesting underlying COPD. Patient is status post sternotomy. There is enlargement of the cardiac silhouette. There has been prior bypass grafting. There is no current edema or failure. No alveolar consolidation is evident. There are operative changes of the thoracic and lumbar spine. IMPRESSION: 1. PICC line terminates within the SVC. 2. Pulmonary interstitial changes and diaphragmatic flattening suggesting underlying COPD. 3. Enlarged cardiac silhouette and prior bypass grafting. There are no current findings of edema or pneumonia. Dictated by: Dictated on workstation # [id number]
[2021-05-09] MEDS: meTOproloL SUCCINATE 50 MG (TOPROL XL) TAB PO SCH (19:32)
[2021-05-09] MEDS: polyethylene glycoL POWDER 17 GM (MIRALAX) PACK PO SCH (19:32)
[2021-05-09] MEDS: APIXABAN 5 MG (ELIQUIS) TABLET PO SCH (19:32)
[2021-05-09] MEDS: DOCUSATE SODIUM 100 MG (COLACE) CAP PO SCH (19:32)
[2021-05-09] MEDS: HYDROcodone/APAP 5 MG/325 MG (LORTAB) TAB PO PRN ×2 (19:32→23:56)
[2021-05-09] MEDS: SENNA W/DOCUSATE (SENOKOT S) TABLET PO SCH (19:33)
[2021-05-09 20:00] VITALS: BP 109/71
[2021-05-09] MEDS: FLUTICASONE NASAL SPRAY (FLONASE) 16 GM BTL NS SCH (20:35)
[2021-05-09] MEDS: PIPERACILLIN SODIUM/TAZOBACTAM 4.5 GM in NS (IVPB) 100 ML IV SCH (20:36)
[2021-05-09] MEDS ORDERED: LENALIDOMIDE 10 MG PO SCH (21:00)
[2021-05-09] MEDS ORDERED: NON-FORMULARY MEDICATION 1 EA EA (Fluticasone Propionate (Flonase Allergy Relief) 2 SPRAY) NSEACH SCH (21:00)
[2021-05-09] MEDS: ALPRAZolam 0.25 MG (XANAX) TAB PO PRN (23:56)
[2021-05-10] MEDS: HYDROcodone/APAP 5 MG/325 MG (LORTAB) TAB PO PRN ×2 (03:52→08:52)
[2021-05-10] MEDS: PIPERACILLIN SODIUM/TAZOBACTAM 4.5 GM in NS (IVPB) 100 ML IV SCH ×3 (05:14→22:11)
[2021-05-10] MEDS: CATHETER FLUSH 10 ML SYR IV SCH ×3 (05:15→22:12)
[2021-05-10 05:33] LABS: BASOPHILS % (AUTO) 0 % (0-10); MONOCYTES # (AUTO) 0.3 10^3/uL (0.0-1.0); MONOCYTES % (AUTO) 9 % (0-12)
[2021-05-10 05:35] LABS: EOSINOPHILS # (AUTO) 0.1 10^3/uL (0.0-0.3); EOSINOPHILS % (AUTO) 2 % (0-10); HEMATOCRIT 23 % (40-54); HEMOGLOBIN 7.3 g/dL (13.3-17.7); LYMPHOCYTES # (AUTO) 0.5 10^3/uL (1.0-4.0); LYMPHOCYTES % (AUTO) 16 % (12-44); MEAN CORPUSCULAR HEMOGLOBIN 28 pg (25-34); MEAN CORPUSCULAR HGB CONC 32 g/dL (32-36); MEAN CORPUSCULAR VOLUME 87 fL (80-99); NEUTROPHILS # (AUTO) 2.4 10^3/uL (1.8-7.8); NEUTROPHILS % (AUTO) 73 % (42-75); PLATELET COUNT 67 10^3/uL (130-400); WHITE BLOOD COUNT 3.3 10^3/uL (4.3-11.0)
[2021-05-10 05:47] LABS: ALBUMIN 2.2 GM/DL (3.2-4.5)
[2021-05-10 05:48] LABS: POTASSIUM 3.3 MMOL/L (3.6-5.0)
[2021-05-10 05:49] LABS: CALCIUM 6.7 MG/DL (8.5-10.1)
[2021-05-10 05:52] LABS: BILIRUBIN,TOTAL 0.5 MG/DL (0.1-1.0)
[2021-05-10 05:54] LABS: CREATININE SERUM 0.96 MG/DL (0.60-1.30)
--- NOTE | 2021-05-10 06:39 | PM&R Progress Note ---
Subjective HPI/CC On Admission Date Seen by Provider: May 10, 2021 Time Seen by Provider: 12:00 Subjective/Events-last exam 05/10/2021: Patient doing really well Pain is an issue so I will change his hydrocodone to the since he does have tolerance for that Awaiting iron level and B12 level suspect both low We'll discontinue catheter today and he is in agreement with that Checked meds and labs Appreciate Dr. Farias Review of Systems General: Fatigue, Malaise Musculoskeletal: back pain Objective Exam Vital Signs Vital Signs Date Time Temp Pulse Resp B/P (MAP) Pulse Ox O2 Delivery O2 Flow Rate FiO2 05/10/21 22:26 92 Room Air 05/10/21 20:00 36.8 96 22 107/57 (74) Capillary Refill : General Appearance: No Apparent Distress, WD/WN, Chronically ill HEENT: PERRL/EOMI, Normal ENT Inspection, Pharynx Normal Neck: Full Range of Motion, Normal Inspection, Non Tender, Supple, Carotid Bruit Respiratory: Chest Non Tender, Lungs Clear, Normal Breath Sounds, No Accessory Muscle Use, No Respiratory Distress Cardiovascular: No Edema, No Gallop, No JVD, No Murmur, Normal Peripheral Pulses, Irregularly Irregular Gastrointestinal: Normal Bowel Sounds, No Organomegaly, No Pulsatile Mass, Non Tender, Soft Back: CVA Tenderness (L), CVA Tenderness (R), Decreased Range of Motion, Vertebral Tenderness Extremity: Normal Capillary Refill, Normal Inspection, Normal Range of Motion, Non Tender, No Calf Tenderness, No Pedal Edema Neurologic/Psychiatric: Alert, Oriented x3, No Motor/Sensory Deficits, Normal Mood/Affect, machine binder stripper II-XII Norm as Tested, Abnormal Gait, Motor Weakness (Generalized and legs 3/5) Skin: Normal Color, Warm/Dry Lymphatic: No Adenopathy Results/Procedures Lab Patient resulted labs reviewed. FIM Transfers Therapy Code Descriptions/Definitions Functional [place] Measure: 0=Not Assessed/NA 4=Minimal Assistance 1=Total Assistance 5=Supervision or Setup 2=Maximal Assistance 6=Modified Willis 3=Moderate Assistance 7=Complete IndependenceSCALE: Activities may be completed with or without assistive devices. 7-Tfwbvldyah-sgwliny completes the activity by him/herself with no assistance from a helper. 5-Set-up or Clean-up Assistance-helper sets up or cleans up; patient completes activity. [place] assists only prior to or following the activity. 4-Supervision or Touching Assistance-helper provides verbal cues and/or touching/steadying and/or contact guard assistance as patient completes activity. Assistance may be provided throughout the activity or intermittently. 3-Partial/Moderate Assistance-helper does LESS THAN HALF the effort. [place] lifts, holds or supports trunk or limbs, but provides less than half the effort. 2-Substantial/Maximal Assistance-helper does MORE THAN HALF the effort. [place] lifts or holds trunk or limbs and provides more than half the effort. 8-Wcmssxuuq-juzhmg does ALL the effort. Patient does none of the effort to complete the activity. Or, the assistance of 2 or more helpers is required for the patient to complete the activity. If activity was not attempted, code reason: 7-Patient Refused. 9-Not Applicable-not attempted and the patient did not perform the activity before the current illness, exacerbation or injury. 10-Not Attempted due to Environmental Limitations-(lack of equipment, weather restraints, etc.). 88-Not Attempted due to Medical Conditions or Safety Concerns. Roll Left to Right (QC): 3 Sit to Lying (QC): 3 Sit to Stand (QC): 4 Chair/Xtd-mb-Tzrvm Xfer(QC): 4 Car Transfer (QC): 4 Gait Training Does the Patient Walk?: Yes Walk 10 feet (QC): 4 Walk 50 ft with 2 Turns(QC): 4 Walk 150 ft (QC): 88 Walking 10ft/uneven surface-QC: 4 Gait Assistive Device: FWW Wheelchair Training Does the Pt Use a Wheelchair?: No Wheel 50 ft with 2 turns (QC): 9 Wheel 150 ft (QC): 9 Stair Training #of Steps: 1 1 Step (curb) (QC): 4 4 Steps (QC): 88 12 Steps (QC): 88 Balance Picking up an Object (QC): 4 (CGA using bottom cager) ADL-Treatment Eating (QC): 5 Oral Hygiene (QC): 4 (pt reports he only rinses dentures. Able to perform standing at sink with CGA) Shower/Bathe Self (QC): 3 Upper Body Dressing (QC): 10 (no appropriate size clothing available at time of eval) Lower Body Dressing (QC): 2 On/Off Footwear (QC): 2 Toileting Hygiene (QC): 3 (Assist with yolis care) Assessment/Plan Assessment and Plan Assess & Plan/Chief Complaint Assessment: Lumbar spine surgery with slow recovery and failure at home due to spondylosis with myelopathy Aspiration pneumonia currently on Zosyn and Vanco Postoperative anemia received 2 units of blood 2 weeks ago Atrial fibrillation with variation in rate consulting cardiology CAD previous stents maintained on Plavix Hypertension Hyperlipidemia Li cath in place discontinued today 05/10/2021 Bacteremia with gram-positive cocci PICC line was placed 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 Farias Increase pain medication (1) Spondylosis of lumbar spine with myelopathy DIANE DAMIAN DO May 10, 2021 06:39
--- NOTE | 2021-05-10 06:39 | Individualized Plan of Care ---
Individualized Plan of Care Rehab Nursing IPOC Order Admission Date May 09, 2021 at 12:30 Current Orders Orders Admission Order(Inpt,Obs,Sdc) (05/09/21 12:18) Anthony Arevalo (05/09/21 12:18) Sequential Compression Device (05/09/21 12:18) Weapons Mechanic-Inpt Rehab Con (05/09/21 12:18) Rehab Nursing Orders-Ipoc (05/09/21 12:18) Physical Therapy Rehab Orders (05/09/21 12:18) Occupational Therapy Rehab Ord (05/09/21 12:18) Speech Therapy Rehab Orders (05/09/21 12:18) Cbc With Automated Diff (05/10/21 06:00) Comprehensive Metabolic Panel (05/10/21 06:00) Precautions (Aru) (05/09/21 12:18) Weekly Weight WEEK (05/09/21 12:18) Rehab-Intensity Of Therapy (05/09/21 12:18) Initiate Admission Nursing Pro .admission (05/09/21 12:18) Alprazolam Tablet (Xanax Tablet) (05/09/21 12:30) Calcium Carbonate Chew Tablet (Antacid C (05/09/21 12:30) Diphenhydramine Tablet (Benadryl Tablet) (05/09/21 12:30) Docusate Sodium Capsule (Colace Capsule) (05/09/21 21:00) Docusate Sodium Capsule (Colace Capsule) (05/09/21 12:30) Bisacodyl Suppository (Dulcolax Supposit (05/09/21 12:30) Lactulose Oral Solution (Enulose Oral So (05/09/21 12:30) Na Phos/Na Biphos Enema (Fleet Enema [place] (05/09/21 12:30) Guaifenesin/Codeine Syrup (Robitussin Ac (05/09/21 12:30) Loperamide Tablet (Imodium Tablet) (05/09/21 12:30) Melatonin Tablet (Melatonin Tablet) (05/09/21 12:30) Polyethylene Glycol Powder Pkt (Miralax (05/09/21 21:00) Ondansetron Oral Dissolve Tab (Zofran (05/09/21 12:30) Senna S Tablet (Senokot S Tablet) (05/09/21 21:00) Acetaminophen Tablet/Caplet (Tylenol T (05/09/21 12:30) Code/Resuscitation (05/09/21 12:18) Sequential Compression Device ONCE (05/09/21 12:18) Initiate Admission Nursing Pro .admission (05/09/21 12:18) Rivaroxaban Tablet (Xarelto Tablet) (05/09/21 17:00) Clopidogrel Tablet (Plavix Tablet) (05/10/21 09:00) Piperacillin Sodium/Tazobactam (Zosyn Vi (05/09/21 12:30) Vancomycin Injection (Vancomycin Injecti (05/09/21 12:30) Catheter(Urinary) Care .0300, 1500 (05/09/21 12:20) Venous Access Request Order (05/09/21 12:26) Admission Arrival Bed Request (05/09/21 12:32) Patient Visit (05/09/21 ) Speech Sound Lang Comp (05/09/21 ) Treat. Speech/Lang/Voice (05/09/21 ) Basic Metabolic Panel (05/09/21 13:40) Piperacillin Sodium/Tazobactam (Zosyn Vi (05/09/21 14:00) Vancomycin Injection (Vancomycin Injecti (05/09/21 14:00) Sodium Chloride Flush (Catheter Flush Sy (05/09/21 14:00) Sodium Chloride Flush (Catheter Flush Sy (05/09/21 14:00) Albuterol Pre-Mix Nebs (Rt) (Proventil (05/09/21 14:30) Apixaban Tablet (Eliquis Tablet) (05/09/21 21:00) Diclofenac 1% Gel (Voltaren 1% Gel) (05/09/21 14:30) Dicyclomine Capsule (Bentyl Capsule) (05/09/21 14:30) Diltiazem Cd 24 Hr Capsule (Cardizem Cd (05/10/21 09:00) Furosemide Tablet (Lasix Tablet) (05/10/21 09:00) Metformin Tablet (Glucophage Tablet) (05/09/21 18:00) Metoprolol Succinate (Xl) Tab (Toprol Xl (05/09/21 21:00) Nitroglycerin 0.4 Mg Btl 25's (Nitrostat (05/09/21 14:30) Pantoprazole Tablet (Protonix Tablet) (05/10/21 09:00) Polyethylene Glycol Powder Pkt (Miralax (05/09/21 14:30) Spironolactone Tablet (Aldactone Tablet) (05/10/21 09:00) Tamsulosin Capsule (Flomax Capsule) (05/10/21 09:00) (Nf) Fluticasone Propionate (Flonase All (05/09/21 21:00) (Nf) Lenalidomide (Revlimid) (05/09/21 21:00) (Nf) Linaclotide (Linzess) (05/10/21 09:00) (Nf) Vit A/Vit C/Vit E/Zinc/Copper (Pres (05/10/21 09:00) Hydrocodone/Apap 5/325 Tablet (Lortab 5 (05/09/21 14:30) Patient Visit (05/09/21 ) Functional Activities, Ea 15 (05/09/21 ) Patient Visit (05/09/21 ) Pt Eval Moderate Complexity (05/09/21 ) Functional Activities, Ea 15 (05/09/21 ) Fluticasone Nasal [place] (Flonase Nasal S (05/09/21 21:00) Hydrocodone/Apap 5/325 Tablet (Lortab 5 (05/09/21 14:35) Piperacillin Sodium/Tazobactam (Zosyn Vi (05/09/21 21:00) Vancomycin Injection (Vancomycin Injecti (05/10/21 14:00) Trough Order (Trough Order-Pharmacy Orde (05/12/21 13:00) Vancomycin,Trough (05/12/21 13:00) Venous Access Request Order (05/09/21 17:22) General/Regular (05/09/21 Dinner) Chest 1 View, Ap/Pa Only (05/09/21 18:23) Picc Dressing/Securement Devic Q7D (05/16/21 18:00) Picc Cap(S) Change Q7D (05/16/21 18:00) Iron Test (Fe) (05/10/21 06:39) Vitamin B 12 (05/10/21 06:39) Iron Sucrose Injection (Venofer Injectio (05/10/21 09:00) Cyanocobalamin Injection (Vitamin B-12 I (05/10/21 06:45) Potassium Chloride (Tablet) (Klor Con Ta (05/10/21 08:00) Magnesium (05/10/21 06:39) Consult Cardiology (05/10/21 10:41) Ekg-Prn For Chest Pain Or Rhyt (05/10/21 10:42) Patient Visit (05/10/21 ) Functional Activities, Ea 15 (05/10/21 ) Echo W Doppler/Color Flow (05/10/21 12:01) Catheter(Urinary) Discontinue (05/10/21 12:18) Hydrocodone/Apap 10/325 Tablet (Lortab 1 (05/10/21 12:30) (Nf) Linaclotide (Linzess) (05/11/21 06:30) Patient May Use Own Med,Single (Patient (05/11/21 06:30) Tamsulosin Capsule (Flomax Capsule) (05/11/21 08:00) Bethanechol Tablet (Urecholine Tablet) (05/11/21 06:15) Bladder Scan-Straight Cath-Pos (05/11/21 06:13) Cyanocobalamin Injection (Vitamin B-12 I (05/11/21 06:15) Cyanocobalamin Tablet (Vitamin B-12 Tabl (05/12/21 07:00) Rehab Nursing Orders: Ongoing Assess. of Function Status, Bladder Management, Bladder Scan, Bladder Training, Bowel Management, Bowel Training, Disease Management & Educaiton, DVT Prophylaxis, Fall Prevention, Fluid/Electrolyte/Nutrition Mgmt, Infection Prevention, Medication Management & Education, Management of Risks & Complications, Management of Skin Intergrity, Nutrition Management, Pain Management, Patient/Family Support, Safety Management, Weight Bearing Precaution, Wound Management Intensity of Therapy to be met Patient to be seen: Min.3h per day/5 of 7d PT IPOC Problem List: Activity Tolerance, Functional Strength, Safety, Balance, Gait, Transfer, Bed Mobility, ROM Treatment Plan: Continue Plan of Care Bed Mobility, Education, Functional Activity Catracho, Functional Strength, Group Therapy, Gait, Safety, Therapeutic Exercise, Transfers Treatment Duration: May 30, 2021 Frequency: At least 5 of 7 days/Wk (IRF) Estimated Hrs Per Day: 1.5 hours per day OT IPOC Problems: Decreased Activ Tolerance, Decreased UE Strength, Impaired Self-Care Skills OT Treatment, Training and Edu: Yes Plan of Care: ADL Retraining, Functional Mobility, Group Exercise/Act as Ind, UE Funct Exercise/Act Treatment Duration: May 23, 2021 Frequency: At least 5 of 7 days/Wk (IRF) Estimated Hrs Per Day: 1.[address] IPOC Speech Therapy Treatment Plan: Discontinue ST Treatment Duration: May 02, 2021 Frequency: 1 time per week Estimated Hrs Per Day: .5 hour per day Weapons Mechanic/Case Mgmt Weapons Mechanic/Case Managemen: Discharge Planning Dietitian/Supervisor Prep Dietitian/Supervisor Prep to monitor nutritional status and make changes and/or recommendations as needed and work with speech pathology on dietary upgrades as the occur. Physician IPOC Medical Issues being managed closely and that require the 24 hour availability of a physician: Patient with recent extensive lumbar spine surgery complicated 2 weeks later with pneumonia aspiration type suspected and gram-positive cocci on blood cultures requiring broad-spectrum antibiotics with Zosyn and vancomycin along with draining wound will require close observation for any decompensation Medical Issues: Bowel/Bladder Function, DVT Prophylaxis, Falls Precautions, Fluid/Electrolyte/Nutrition Balance, Infection Protection, Pain Management, Wound Care Brief Synthesis of Preadmission Screen, Post-Admission Evaluation, and Therapy Evaluations: PT and OT will focus on increasing ambulation with assistive devices in order to regain independence in ADLs and ambulate in order to go home with spouse Medical Prognosis: Good Anticipated Length of Stay: 10 days DIANE DAMIAN DO May 10, 2021 06:39
[2021-05-10] MEDS ORDERED: CYANOCOBALAMIN INJ 1000 MCG/ML IM ONE (06:45)
[2021-05-10 07:30] VITALS: BP 102/54
[2021-05-10] MEDS ORDERED: NON-FORMULARY MEDICATION 1 EA EA (Linaclotide (Linzess) 290 MCG) PO SCH (09:00)
[2021-05-10] MEDS ORDERED: TAMSULOSIN 0.4 MG (FLOMAX) CAP PO SCH (09:00)
[2021-05-10] MEDS: PANTOPRAZOLE 40 MG (PROTONIX) TAB PO SCH (09:12)
[2021-05-10] MEDS: ALPRAZolam 0.25 MG (XANAX) TAB PO PRN (09:12)
[2021-05-10] MEDS: meTOproloL SUCCINATE 50 MG (TOPROL XL) TAB PO SCH ×2 (09:12→22:11)
[2021-05-10] MEDS: APIXABAN 5 MG (ELIQUIS) TABLET PO SCH ×2 (09:12→22:12)
[2021-05-10] MEDS: SPIRONOLACTONE 25 MG (ALDACTONE) TAB PO SCH (09:12)
[2021-05-10] MEDS: CLOPIDOGREL 75 MG (PLAVIX) TABLET PO SCH (09:13)
[2021-05-10] MEDS: FUROSEMIDE 40 MG (LASIX) TAB PO SCH (09:13)
[2021-05-10] MEDS: IRON SUCROSE 200 MG/10 ML (VENOFER) VIAL IV SCH (09:13)
[2021-05-10] MEDS: KCL 10 MEQ TAB (MICRO K) PO SCH ×2 (09:13→17:00)
--- NOTE | 2021-05-10 10:48 | Physical Therapy Daily Note ---
PT Daily Note-Current Subjective Pt. in bed states he only slept about 3 hrs last night and is anxious to nap today, agrees to bed LE therex, but during exercise pt. requested to go to the bathroom urgently for BM Pain Numeric Pain Scale: 6 Location: Right Location Body Site: Hip (low bck and leg) Pain Description: Pressure Mental Status Patient Orientation: Normal For Age Attachments: Li Catheter, Other-See Comments (back brace) Transfers SCALE: Activities may be completed with or without assistive devices. 2-Ltytdhefkj-vkeuydd completes the activity by him/herself with no assistance from a helper. 5-Set-up or Clean-up Assistance-helper sets up or cleans up; patient completes activity. [place] assists only prior to or following the activity. 4-Supervision or Touching Assistance-helper provides verbal cues and/or touching/steadying and/or contact guard assistance as patient completes a ctivity. Assistance may be provided throughout the activity or intermittently. 3-Partial/Moderate Assistance-helper does LESS THAN HALF the effort. [place] lifts, holds or supports trunk or limbs, but provides less than half the effort. 2-Substantial/Maximal Assistance-helper does MORE THAN HALF the effort. [place] lifts or holds trunk or limbs and provides more than half the effort. 7-Pbfwegtyt-svwsjc does ALL the effort. Patient does none of the effort to complete the activity. Or, the assistance of 2 or more helpers is required for the patient to complete the activity. If activity was not attempted, code reason: 7-Patient Refused. 9-Not Applicable-not attempted and the patient did not perform the activity before the current illness, exacerbation or injury. 10-Not Attempted due to Environmental Limitations-(lack of equipment, weather restraints, etc.). 88-Not Attempted due to Medical Conditions or Safety Concerns. Roll Left & Right (QC): 4 Lying to Sitting/Side of Bed(Q: 4 Sit to Stand (QC): 4 Toilet Transfer (QC): 4 Weight Bearing back precautions Gait Training Does the Patient Walk?: Yes Walk 10 feet (QC): 4 Gait Assistive Device: FWW 25ft FWW CGA, no LOB Exercises Supine Ex: Ankle pumps, Quad Set, Rolling, Glut sets, Heel Slides, Short Arc Quads, Hip abd/add Supine Reps: 15 Treatments LE supine therx, TRF sup to sit to stand, pt. incont of BM in bed and on gown and brief, pt. assisted to bthrm, assisted to doff soiled items, clean items donned with assist, nurse aide present as pt. needed more time on toilet Assessment Current Status: Good Progress PT Short Term Goals Short Term Goals Time Frame: May 16, 2021 Roll Left & Right: 4 (SBA) Sit to lyin (SA) Lying to sitting on side of be: 4 (SBA) Sit to stand: 4 (SBA) Chair/njm-ca-ekzea transfer: 4 (SBA) Walk 10 feet: 4 (SBA) Walk 50 feet with two turns: 4 (SBA) Walk 150 feet: 4 (SBA) PT Usp Goals Lining Finisher Goals PT Lining Finisher Goals Time Frame: May 30, 2021 Roll Left & Right (QC): 6 Sit to Lying (QC): 6 Lying-Sitting on Side/Bed(QC): 6 Sit to Stand (QC): 6 Chair/Ubw-sz-Jwxfc Xfer(QC): 6 Toilet Transfer (QC): 6 Car Transfer (QC): 6 Does the Patient Walk: Yes Walk 10 feet (QC): 6 Walk 50ft with 2 Turns (QC): 6 Walk 150 ft (QC): 6 Walking 10ft on Uneven Surface: 6 1 Step (curb) (QC): 4 (SBA) 4 Steps (QC): 4 (SBA) 12 Steps (QC): 88 Picking up an Object (QC): 6 Wheel 50 feet with 2 turns (QC: 9 Wheel 150 feet: 9 PT Plan Treatment/Plan Treatment Plan: Continue Plan of Care Treatment Plan: Bed Mobility, Education, Functional Activity Catracho, Functional Strength, Group Therapy, Gait, Safety, Therapeutic Exercise, Transfers Treatment Duration: May 30, 2021 Frequency: At least 5 of 7 days/Wk (IRF) Estimated Hrs Per Day: 1.5 hours per day Patient and/or Family Agrees t: Yes Safety Risks/Education Patient Education: Gait Training, Transfer Techniques, Correct Positioning, Reviewed Don/Doff Brace, Safety Issues Teaching Recipient: Patient Teaching Methods: Demonstration, Discussion Response to Teaching: Verbalize Understanding, Return Demonstration, Reinforcement Needed Time/GCodes Time In: 1005 Time Out: 1020 Total Billed Treatment Time: 15 Total Billed Treatment 1,FA15m KEIKO COLBY CARRIER WASHER May 10, 2021 10:48
[2021-05-10] MEDS: SENNA W/DOCUSATE (SENOKOT S) TABLET PO SCH ×2 (11:16→22:11)
[2021-05-10] MEDS: polyethylene glycoL POWDER 17 GM (MIRALAX) PACK PO SCH ×2 (11:16→21:00)
[2021-05-10] MEDS: DOCUSATE SODIUM 100 MG (COLACE) CAP PO SCH ×2 (11:16→22:11)
[2021-05-10 11:34] VITALS: BP 104/58
--- NOTE | 2021-05-10 12:06 | Consultation-Cardiology ---
HPI-Cardiology Cardiology Consultation Date of Consultation 05/10/21 Date of Admission Time Seen by Provider: 12:01 Indication: Atrial fibrillation HPI 76 years old gentleman with extensive cardiac history, follows with Dr. Lott as an outpatient. Underwent back surgery on April 21, 2021, patient was hospitalized for possible infection at [facility]. MRI was done and it was reported that there were no signs of infection or fluid collection. He was treated with antibiotic for possible aspiration pneumonia. Patient is still having back pain. He has a history of chronic atrial fibrillation, maintained on Plavix and Eliquis, coronary artery disease. Home Medications & Allergies Allergies: Coded Allergies: No Known Drug Allergies (Unverified , 03/21/20) Home Medication List Reviewed: Yes PBA-Frghjc-Jxswbs Hx Patient Social History Marital Status: Employed/Student: retired Smoking Status: Former Smoker Have you traveled recently?: No Alcohol Use?: No Immunizations Up To Date Date of Influenza Vaccine: Dec 08, 2020 Past Medical History Discussed below Family Medical History Family Medical Hx Noncontributory Review of Systems-General Review of Systems Constitutional: see HPI, dizziness, malaise, weakness EENTM: no symptoms reported Respiratory: see HPI; No cough; dyspnea on exertion; No hemoptysis, No orthopnea, No phlegm, No short of breath, No stridor, No wheezing, No other Cardiovascular: see HPI; No chest pain, No edema, No Hx of Intervention, No palpitations, No syncope, No vascular heart diseas, No other Gastrointestinal: no symptoms reported Genitourinary: other (Retention) Musculoskeletal: see HPI, back pain Skin: see HPI Psychiatric/Neurological: Anxiety All Other Systems Reviewed Negative Unless Noted: Yes Reviewed Test Results Reviewed Test Results Lab Laboratory Tests Test 05/09/21 14:55 05/10/21 05:20 Range/Units Sodium Level 136 135 135-145 MMOL/L Potassium Level 3.4 L 3.3 L 3.6-5.0 MMOL/L Chloride Level 109 H 111 H 98-107 MMOL/L Carbon Dioxide Level 15 L 17 L 21-32 MMOL/L Anion Gap 12 7 5-14 MMOL/L Blood Urea Nitrogen 19 H 15 7-18 MG/DL Creatinine 1.12 0.96 0.60-1.30 MG/DL Estimat Glomerular Filtration Rate 67 81 BUN/Creatinine Ratio 17 16 Glucose Level 139 H 100 70-105 MG/DL Calcium Level 7.4 L 6.7 L 8.5-10.1 MG/DL White Blood Count 3.3 L 4.3-11.0 10^3/uL Red Blood Count 2.61 L 4.30-5.52 10^6/uL Hemoglobin 7.3 L 13.3-17.7 g/dL Hematocrit 23 L 40-54 % Mean Corpuscular Volume 87 80-99 fL Mean Corpuscular Hemoglobin 28 25-34 pg Mean Corpuscular Hemoglobin Concent 32 32-36 g/dL Red Cell Distribution Width 18.6 H 10.0-14.5 % Platelet Count 67 L 130-400 10^3/uL Mean Platelet Volume 10.0 9.0-12.2 fL Immature Granulocyte % (Auto) 1 % Neutrophils (%) (Auto) 73 42-75 % Lymphocytes (%) (Auto) 16 12-44 % Monocytes (%) (Auto) 9 0-12 % Eosinophils (%) (Auto) 2 0-10 % Basophils (%) (Auto) 0 0-10 % Neutrophils # (Auto) 2.4 1.8-7.8 10^3/uL Lymphocytes # (Auto) 0.5 L 1.0-4.0 10^3/uL Monocytes # (Auto) 0.3 0.0-1.0 10^3/uL Eosinophils # (Auto) 0.1 0.0-0.3 10^3/uL Basophils # (Auto) 0.0 0.0-0.1 10^3/uL Immature Granulocyte # (Auto) 0.0 0.0-0.1 10^3/uL Percent Immature Platelet Fraction 1.4 0.0-7.6 % Corrected Calcium 8.1 L 8.5-10.1 MG/DL Magnesium Level 1.8 1.6-2.4 MG/DL Total Bilirubin 0.5 0.1-1.0 MG/DL Aspartate Amino Transf (AST/SGOT) 10 5-34 U/L Alanine Aminotransferase (ALT/SGPT) 9 0-55 U/L Alkaline Phosphatase 66 40-136 U/L Total Protein 5.0 L 6.4-8.2 GM/DL Albumin 2.2 L 3.2-4.5 GM/DL Physical Exam Physical Exam Vital Signs Vital Signs - First Documented 05/09/21 05/09/21 19:37 20:00 Temp 36.3 Pulse 123 Resp 20 B/P (MAP) 109/71 (84) Pulse Ox 93 O2 Delivery Room Air Capillary Refill : Height, Weight, BMI Height: '" Weight: lbs. oz. kg; 36.55 BMI Method: General Appearance: No Apparent Distress, WD/WN, Chronically ill Eyes: Bilateral Eye Normal Inspection, Bilateral Eye PERRL HEENT: PERRL/EOMI, Normal ENT Inspection, Pharynx Normal Neck: Full Range of Motion, Normal Inspection, Non Tender, Supple, Carotid Bruit Respiratory: Chest Non Tender, Lungs Clear, Normal Breath Sounds, No Accessory Muscle Use, No Respiratory Distress Cardiovascular: No Edema, No Gallop, No JVD, No Murmur, Normal Peripheral Pulses, Irregularly Irregular Gastrointestinal: Normal Bowel Sounds, No Organomegaly, No Pulsatile Mass, Non Tender, Soft Back: CVA Tenderness (L), CVA Tenderness (R), Decreased Range of Motion, Vertebral Tenderness Extremity: Normal Capillary Refill, Normal Inspection, Normal Range of Motion, Non Tender, No Calf Tenderness, No Pedal Edema Neurologic/Psychiatric: Alert, Oriented x3, No Motor/Sensory Deficits, Normal Mood/Affect, chargeback specialist II-XII Norm as Tested, Abnormal Gait, Motor Weakness (Generalized and legs 3/5) Skin: Normal Color, Warm/Dry Lymphatic: No Adenopathy A/P-Cardiology Admission Diagnosis Atrial fibrillation Coronary artery disease Hypertension Anemia Assessment/Plan Atrial fibrillation with controlled ventricular rate, maintained on Cardizem CD 300 mg daily and Toprol-XL 50 mg twice daily. Having few episodes of borderline tachycardia, continue on current medications and monitor [id number] score 4, yearly risk of stroke without oral anticoagulation is 4%, maintained on Eliquis. Coronary artery disease, history of CABG x3 done in 2013, reported that he had 2 stents placed in 2018. He is currently asymptomatic. Maintained on Plavix. Continue to monitor Lumbar spine surgery on April 21, 2021, slow recovery, having myelopathy and spondylosis and generalized weakness and back pain. Aspiration pneumonia, receiving Zosyn and vancomycin Postoperative anemia, managed by medical team, monitor H&H Hypertension, continue to monitor blood pressure Hyperlipidemia, monitor lipids Bacteremia, gram-positive cocci. PICC line was placed. Continue to monitor and will evaluate 2D echocardiogram for any possible vegetation LAQUITA JAMIL MD May 10, 2021 12:06
[2021-05-10] MEDS: metFORMIN 500 MG (GLUCOPHAGE) TAB PO SCH (16:59)
[2021-05-10] MEDS: VANCOMYCIN 1500 MG/NS 500 ML IVPB IV SCH ×2 (17:02)
[2021-05-10 20:00] VITALS: BP 107/57
[2021-05-10] MEDS: FLUTICASONE NASAL SPRAY (FLONASE) 16 GM BTL NS SCH (22:12)
[2021-05-11] MEDS: PIPERACILLIN SODIUM/TAZOBACTAM 4.5 GM in NS (IVPB) 100 ML IV SCH ×2 (05:36→12:31)
[2021-05-11] MEDS: CATHETER FLUSH 10 ML SYR IV SCH ×3 (05:41→20:23)
[2021-05-11] MEDS ORDERED: CYANOCOBALAMIN INJ 1000 MCG/ML IM ONE (06:15)
[2021-05-11] MEDS ORDERED: PATIENT MAY USE OWN MED,SINGLE MED PO SCH (06:30)
[2021-05-11] MEDS: BETHANECHOL 25 MG (URECHOLINE) TAB PO SCH ×4 (07:19→20:23)
[2021-05-11 07:30] VITALS: BP 116/67
--- NOTE | 2021-05-11 07:48 | PM&R Progress Note ---
Subjective HPI/CC On Admission Date Seen by Provider: May 11, 2021 Time Seen by Provider: 12:15 Subjective/Events-last exam 05/11/2021: Patient doing really well Increased pain medication has helped Iron infusion and B12 supplement given Having urinary retention so started meds and performed in and out cath Check meds labs 05/10/2021: Patient doing really well Pain is an issue so I will change his hydrocodone to the 10/325 since he does have tolerance for that Awaiting iron level and B12 level suspect both low We'll discontinue catheter today and he is in agreement with that Checked meds and labs Appreciate Dr. Farias Review of Systems General: Fatigue, Malaise Genitourinary: Retention Musculoskeletal: back pain Objective Exam Vital Signs Vital Signs Date Time Temp Pulse Resp B/P (MAP) Pulse Ox O2 Delivery O2 Flow Rate FiO2 05/11/21 08:41 Room Air 05/11/21 07:30 36.8 115 18 116/67 (83) 98 Capillary Refill : General Appearance: No Apparent Distress, WD/WN, Chronically ill HEENT: PERRL/EOMI, Normal ENT Inspection, Pharynx Normal Neck: Full Range of Motion, Normal Inspection, Non Tender, Supple, Carotid Bruit Respiratory: Chest Non Tender, Lungs Clear, Normal Breath Sounds, No Accessory Muscle Use, No Respiratory Distress Cardiovascular: No Edema, No Gallop, No JVD, No Murmur, Normal Peripheral Pulses, Irregularly Irregular Gastrointestinal: Normal Bowel Sounds, No Organomegaly, No Pulsatile Mass, Non Tender, Soft Back: CVA Tenderness (L), CVA Tenderness (R), Decreased Range of Motion, Vertebral Tenderness Extremity: Normal Capillary Refill, Normal Inspection, Normal Range of Motion, Non Tender, No Calf Tenderness, No Pedal Edema Neurologic/Psychiatric: Alert, Oriented x3, No Motor/Sensory Deficits, Normal 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 FIM Transfers Therapy Code Descriptions/Definitions Functional [place] Measure: 0=Not Assessed/NA 4=Minimal Assistance 1=Total Assistance 5=Supervision or Setup 2=Maximal Assistance 6=Modified [place] 3=Moderate Assistance 7=Complete IndependenceSCALE: Activities may be completed with or without assistive devices. 2-Hdsyspmzdc-aqkglwn completes the activity by him/herself with no assistance from a helper. 5-Set-up or Clean-up Assistance-helper sets up or cleans up; patient completes activity. [place] assists only prior to or following the activity. 4-Supervision or Touching Assistance-helper provides verbal cues and/or touching/steadying and/or contact guard assistance as patient completes activity. Assistance may be provided throughout the activity or intermittently. 3-Partial/Moderate Assistance-helper does LESS THAN HALF the effort. [place] lifts, holds or supports trunk or limbs, but provides less than half the effort. 2-Substantial/Maximal Assistance-helper does MORE THAN HALF the effort. [place] lifts or holds trunk or limbs and provides more than half the effort. 0-Slvrbasao-qklrzc does ALL the effort. Patient does none of the effort to complete the activity. Or, the assistance of 2 or more helpers is required for the patient to complete the activity. If activity was not attempted, code reason: 7-Patient Refused. 9-Not Applicable-not attempted and the patient did not perform the activity before the current illness, exacerbation or injury. 10-Not Attempted due to Environmental Limitations-(lack of equipment, weather restraints, etc.). 88-Not Attempted due to Medical Conditions or Safety Concerns. Roll Left to Right (QC): 4 Sit to Lying (QC): 3 Sit to Stand (QC): 4 Chair/Bjn-px-Gmvkn Xfer(QC): 4 Car Transfer (QC): 4 Gait Training Does the Patient Walk?: Yes Walk 10 feet (QC): 4 Walk 50 ft with 2 Turns(QC): 4 Walk 150 ft (QC): 88 Walking 10ft/uneven surface-QC: 4 Gait Assistive Device: FWW Wheelchair Training Does the Pt Use a Wheelchair?: No Wheel 50 ft with 2 turns (QC): 9 Wheel 150 ft (QC): 9 Stair Training #of Steps: 1 1 Step (curb) (QC): 4 4 Steps (QC): 88 12 Steps (QC): 88 Balance Picking up an Object (QC): 4 (CGA using atomic spectroscopist) ADL-Treatment Eating (QC): 5 Oral Hygiene (QC): 4 (pt reports he only rinses dentures. Able to perform standing at sink with CGA) Shower/Bathe Self (QC): 3 Upper Body Dressing (QC): 10 (no appropriate size clothing available at time of eval) Lower Body Dressing (QC): 2 On/Off Footwear (QC): 2 Toileting Hygiene (QC): 3 (Assist with yolis care) Assessment/Plan Assessment and Plan Assess & Plan/Chief Complaint Assessment: Lumbar spine surgery with slow recovery and failure at home due to spondylosis with myelopathy Aspiration pneumonia currently on Zosyn and Vanco Postoperative anemia received 2 units of blood 2 weeks ago Atrial fibrillation with variation in rate consulting cardiology CAD previous stents maintained on Plavix Hypertension Hyperlipidemia Li cath in place discontinued 05/10/2021 now having retention on 05/11/2021 so started on Urecholine and Flomax and performing in and out caths Bacteremia with gram-positive cocci PICC line was placed 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 Farias Increase pain medication 05/11/2021: IV antibiotics Urinary retention management (1) Spondylosis of lumbar spine with myelopathy DIANE DAMIAN DO May 11, 2021 07:48
[2021-05-11] MEDS ORDERED: IRON SUCROSE 200 MG/10 ML (VENOFER) VIAL IV SCH (09:00)
[2021-05-11] MEDS: PANTOPRAZOLE 40 MG (PROTONIX) TAB PO SCH (09:26)
[2021-05-11] MEDS: FUROSEMIDE 40 MG (LASIX) TAB PO SCH (09:27)
[2021-05-11] MEDS: CLOPIDOGREL 75 MG (PLAVIX) TABLET PO SCH (09:27)
[2021-05-11] MEDS: KCL 10 MEQ TAB (MICRO K) PO SCH ×2 (09:27→18:51)
[2021-05-11] MEDS: SPIRONOLACTONE 25 MG (ALDACTONE) TAB PO SCH (09:27)
[2021-05-11] MEDS: TAMSULOSIN 0.4 MG (FLOMAX) CAP PO SCH ×2 (09:27→18:51)
[2021-05-11] MEDS: APIXABAN 5 MG (ELIQUIS) TABLET PO SCH ×2 (09:27→20:23)
[2021-05-11] MEDS: meTOproloL SUCCINATE 50 MG (TOPROL XL) TAB PO SCH ×2 (09:27→20:23)
--- NOTE | 2021-05-11 09:58 | Cardiology Progress Note ---
Subjective Date Seen by Provider: May 11, 2021 Time Seen by Provider: 09:56 Subjective/Events-last exam Patient was seen at bedside, laying down comfortably, no chest pain was rep orted. Review of Systems General: No Chills, No Night Sweats, No Fatigue, No Malaise, No Appetite, No Other HEENT: No Head Aches, No Visual Changes, No Eye Pain, No Ear Pain, No Dysphasia, No Sinus Congestion, No Post Nasal Drip, No Sore Throat, No Other Pulmonary: No Dyspnea, No Cough, No Pleuritic Chest Pain, No Other Cardiovascular: No: Chest Pain, Palpitations, Orthopnea, Paroxysmal Noc. Dyspnea, Edema, Lt Headedness, Other Objective-Cardiology Exam Last Set of Vital Signs Vital Signs 05/10/21 05/11/21 22:26 07:30 Temp 36.8 Pulse 115 Resp 18 B/P (MAP) 116/67 (83) Pulse Ox 98 O2 Delivery Room Air I&O Intake and Output 05/11/21 00:00 Intake Total 550 ml Output Total 1450 ml Balance -900 ml Intake Oral 450 ml IV Total 100 ml Output Urine Total 1450 ml # Bowel Movements 6 General: Alert, Oriented X3, Cooperative HEENT: Atraumatic, PERRLA Neck: Supple, No JVD, No Thyromegaly Lungs: Clear to Auscultation, Normal Air Movement Heart: Regular Rate, Normal S1, Normal S2, No Murmurs Abdomen: Normal Bowel Sounds, Soft, No Tenderness, No Hepatosplenomegaly, No Masses Extremities: No Clubbing, No Cyanosis, No Edema, Normal Pulses, No Tenderness/Swelling Skin: No Rashes, No Breakdown, No Significant Lesion Neuro: Normal Speech, Normal Tone, Sensation Intact Psych/Mental Status: Mental Status NL, Mood NL A/P-Cardiology Admission Diagnosis Atrial fibrillation Coronary artery disease Hypertension Anemia Assessment/Plan Atrial fibrillation with controlled ventricular rate, maintained on Cardizem CD 300 mg daily and Toprol-XL 50 mg twice daily. Having few episodes of borderline tachycardia, continue on current medications and monitor [id number] score 4, yearly risk of stroke without oral anticoagulation is 4%, maintained on Eliquis. Anemia, monitor H&H. Hypokalemia, plan to repeat metabolic profile in the morning Coronary artery disease, history of CABG x3 done in 2012, reported that he had 2 stents placed in 2018. He is currently asymptomatic. Maintained on Plavix. Continue to monitor Lumbar spine surgery on April 21, 2021, slow recovery, having myelopathy and spondylosis and generalized weakness and back pain. Aspiration pneumonia, receiving Zosyn and vancomycin Postoperative anemia, managed by medical team, monitor H&H Hypertension, continue to monitor blood pressure Hyperlipidemia, monitor lipids Bacteremia, gram-positive cocci. PICC line was placed. Continue to monitor and will evaluate 2D echocardiogram for any possible vegetation LAQUITA JAMIL MD May 11, 2021 09:58
[2021-05-11] MEDS: SENNA W/DOCUSATE (SENOKOT S) TABLET PO SCH ×2 (13:01→20:23)
[2021-05-11] MEDS: DOCUSATE SODIUM 100 MG (COLACE) CAP PO SCH ×2 (13:01→20:22)
[2021-05-11] MEDS: polyethylene glycoL POWDER 17 GM (MIRALAX) PACK PO SCH ×2 (13:02→20:34)
[2021-05-11] MEDS: LINACLOTIDE 290 MCG (LINZESS) CAPSULE PO SCH (14:03)
[2021-05-11] MEDS: VANCOMYCIN 1500 MG/NS 500 ML IVPB IV SCH ×2 (15:02)
[2021-05-11] MEDS: metFORMIN 500 MG (GLUCOPHAGE) TAB PO SCH (18:51)
[2021-05-11 20:02] VITALS: BP 113/53
[2021-05-11] MEDS: FLUTICASONE NASAL SPRAY (FLONASE) 16 GM BTL NS SCH (20:22)
--- NOTE | 2021-05-12 05:27 | PM&R Progress Note ---
Subjective HPI/CC On Admission Date Seen by Provider: May 12, 2021 Time Seen by Provider: 11:00 Subjective/Events-last exam 05/12/21: Pt is having a lot of pain Added Baclofen Plavix may be discontinued due to hemoglobin Dr. Farias has evaluated him Changed Zosyn and Vancomycin to Rocephin due to MSSA on culture at [facility] and blood cultures Dr. GODOY request a wound culture on the wound drainage 05/11/2021: Patient doing really well Increased pain medication has helped Iron infusion and B12 supplement given Having urinary retention so started meds and performed in and out cath Check meds labs 05/10/2021: Patient doing really well Pain is an issue so I will change his hydrocodone to the since he does have tolerance for that Awaiting iron level and B12 level suspect both low We'll discontinue catheter today and he is in agreement with that Checked meds and labs Appreciate Dr. Farias Review of Systems General: Fatigue, Malaise Objective Exam Vital Signs Vital Signs Date Time Temp Pulse Resp B/P (MAP) Pulse Ox O2 Delivery O2 Flow Rate FiO2 05/12/21 20:47 Room Air 05/12/21 20:39 36.7 80 20 111/56 (74) 97 Capillary Refill : General Appearance: No Apparent Distress, WD/WN, Chronically ill HEENT: PERRL/EOMI, Normal ENT Inspection, Pharynx Normal Neck: Full Range of Motion, Normal Inspection, Non Tender, Supple, Carotid Bruit Respiratory: Chest Non Tender, Lungs Clear, Normal Breath Sounds, No Accessory Muscle Use, No Respiratory Distress Cardiovascular: No Edema, No Gallop, No JVD, No Murmur, Normal Peripheral Pulses, Irregularly Irregular Gastrointestinal: Normal Bowel Sounds, No Organomegaly, No Pulsatile Mass, Non Tender, Soft Back: CVA Tenderness (L), CVA Tenderness (R), Decreased Range of Motion, Vertebral Tenderness Extremity: Normal Capillary Refill, Normal Inspection, Normal Range of Motion, Non Tender, No Calf Tenderness, No Pedal Edema Neurologic/Psychiatric: Alert, Oriented x3, No Motor/Sensory Deficits, Normal Mood/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 FIM Transfers Therapy Code Descriptions/Definitions Functional [place] Measure: 0=Not Assessed/NA 4=Minimal Assistance 1=Total Assistance 5=Supervision or Setup 2=Maximal Assistance 6=Modified [place] 3=Moderate Assistance 7=Complete IndependenceSCALE: Activities may be completed with or without assistive devices. 3-Cxykofbdgr-gropetl completes the activity by him/herself with no assistance from a helper. 5-Set-up or Clean-up Assistance-helper sets up or cleans up; patient completes activity. [place] assists only prior to or following the activity. 4-Supervision or Touching Assistance-helper provides verbal cues and/or touching/steadying and/or contact guard assistance as patient completes activity. Assistance may be provided throughout the activity or intermittently. 3-Partial/Moderate Assistance-helper does LESS THAN HALF the effort. [place] lifts, holds or supports trunk or limbs, but provides less than half the effort. 2-Substantial/Maximal Assistance-helper does MORE THAN HALF the effort. [place] lifts or holds trunk or limbs and provides more than half the effort. 4-Cxriwngxf-eqwsik does ALL the effort. Patient does none of the effort to complete the activity. Or, the assistance of 2 or more helpers is required for the patient to complete the activity. If activity was not attempted, code reason: 7-Patient Refused. 9-Not Applicable-not attempted and the patient did not perform the activity before the current illness, exacerbation or injury. 10-Not Attempted due to Environmental Limitations-(lack of equipment, weather restraints, etc.). 88-Not Attempted due to Medical Conditions or Safety Concerns. Roll Left to Right (QC): 4 Sit to Lying (QC): 3 Sit to Stand (QC): 4 Chair/Sen-bo-Dkhyt Xfer(QC): 4 Car Transfer (QC): 4 Gait Training Does the Patient Walk?: Yes Walk 10 feet (QC): 4 Walk 50 ft with 2 Turns(QC): 4 Walk 150 ft (QC): 88 Walking 10ft/uneven surface-QC: 4 Gait Assistive Device: FWW Wheelchair Training Does the Pt Use a Wheelchair?: No Wheel 50 ft with 2 turns (QC): 9 Wheel 150 ft (QC): 9 Stair Training #of Steps: 1 1 Step (curb) (QC): 4 4 Steps (QC): 88 12 Steps (QC): 88 Balance Picking up an Object (QC): 4 (CGA using form layer) ADL-Treatment Eating (QC): 5 Oral Hygiene (QC): 4 (pt reports he only rinses dentures. Able to perform standing at sink with CGA) Shower/Bathe Self (QC): 3 Upper Body Dressing (QC): 10 (no appropriate size clothing available at time of eval) Lower Body Dressing (QC): 2 On/Off Footwear (QC): 2 Toileting Hygiene (QC): 3 (Assist with yolis care) Assessment/Plan Assessment and Plan Assess & Plan/Chief Complaint Assessment: Lumbar spine surgery with slow recovery and failure at home due to spondylosis with myelopathy Aspiration pneumonia status post on Zosyn and Vanco for 6 days discontinued 05/11/2021 due to MSSA on blood cultures Postoperative anemia received 2 units of blood 2 weeks ago receiving iron infusions and B12 supplement Atrial fibrillation with variation in rate consulting cardiology CAD previous stents maintained on Plavix Hypertension Hyperlipidemia Li cath in place discontinued 05/10/2021 now having retention on 05/11/2021 so started on Urecholine and Flomax and performing in and out caths Bacteremia with gram-positive cocci PICC line was placed 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 Farias Increase pain medication 05/11/2021: IV antibiotics Urinary retention management 05/12/2021: Wound culture per Dr. Darvin Gupta May need I&D of the wound (1) Spondylosis of lumbar spine with myelopathy DIANE DAMIAN DO May 12, 2021 05:27
[2021-05-12 05:46] LABS: EOSINOPHILS # (AUTO) 0.1 10^3/uL (0.0-0.3)
[2021-05-12 05:48] LABS: BASOPHILS % (AUTO) 0 % (0-10); EOSINOPHILS % (AUTO) 2 % (0-10); HEMATOCRIT 26 % (40-54); LYMPHOCYTES % (AUTO) 40 % (12-44); MEAN CORPUSCULAR HEMOGLOBIN 27 pg (25-34); MEAN CORPUSCULAR HGB CONC 31 g/dL (32-36); MEAN CORPUSCULAR VOLUME 87 fL (80-99); MEAN PLATELET VOLUME 9.4 fL (9.0-12.2); MONOCYTES # (AUTO) 0.4 10^3/uL (0.0-1.0); MONOCYTES % (AUTO) 15 % (0-12); NEUTROPHILS # (AUTO) 1.1 10^3/uL (1.8-7.8); NEUTROPHILS % (AUTO) 42 % (42-75); PLATELET COUNT 64 10^3/uL (130-400); WHITE BLOOD COUNT 2.6 10^3/uL (4.3-11.0)
[2021-05-12 05:54] LABS: ALBUMIN 2.3 GM/DL (3.2-4.5)
[2021-05-12 05:55] LABS: POTASSIUM 3.6 MMOL/L (3.6-5.0)
[2021-05-12 05:56] LABS: CALCIUM 6.6 MG/DL (8.5-10.1)
[2021-05-12 05:57] LABS: TOTAL PROTEIN 5.3 GM/DL (6.4-8.2)
[2021-05-12 05:59] LABS: BILIRUBIN,TOTAL 0.4 MG/DL (0.1-1.0)
[2021-05-12 06:01] LABS: CREATININE SERUM 0.9 MG/DL (0.60-1.30)
[2021-05-12 06:03] LABS: MAGNESIUM 1.7 MG/DL (1.6-2.4)
[2021-05-12] MEDS: BETHANECHOL 25 MG (URECHOLINE) TAB PO SCH ×4 (06:28→20:10)
[2021-05-12] MEDS: CYANOCOBALAMIN 1,000 MCG (VITAMIN B-12) TABLET PO SCH (06:28)
[2021-05-12] MEDS: CATHETER FLUSH 10 ML SYR IV SCH ×3 (06:34→21:27)
[2021-05-12] MEDS ORDERED: PRESERVISION AREDS SOFTGEL (BAUSH & LOMB) PO SCH (07:00)
[2021-05-12] MEDS: LINACLOTIDE 290 MCG (LINZESS) CAPSULE PO SCH (07:29)
[2021-05-12 08:02] VITALS: BP 111/63
[2021-05-12] MEDS: SPIRONOLACTONE 25 MG (ALDACTONE) TAB PO SCH (08:04)
[2021-05-12] MEDS: meTOproloL SUCCINATE 50 MG (TOPROL XL) TAB PO SCH ×2 (08:04→20:10)
[2021-05-12] MEDS: FUROSEMIDE 40 MG (LASIX) TAB PO SCH (08:04)
[2021-05-12] MEDS: KCL 10 MEQ TAB (MICRO K) PO SCH ×2 (08:04→17:14)
[2021-05-12] MEDS: TAMSULOSIN 0.4 MG (FLOMAX) CAP PO SCH ×2 (08:04→17:13)
[2021-05-12] MEDS: CLOPIDOGREL 75 MG (PLAVIX) TABLET PO SCH (08:04)
[2021-05-12] MEDS: PANTOPRAZOLE 40 MG (PROTONIX) TAB PO SCH (08:04)
[2021-05-12] MEDS: DOCUSATE SODIUM 100 MG (COLACE) CAP PO SCH ×2 (08:04→20:10)
[2021-05-12] MEDS: APIXABAN 5 MG (ELIQUIS) TABLET PO SCH ×2 (08:04→20:10)
[2021-05-12] MEDS: IRON SUCROSE 200 MG/10 ML (VENOFER) VIAL IV SCH (08:06)
[2021-05-12] MEDS: cefTRIAXone 1 GM PRE-MIX 50 ML IV SCH (08:09)
[2021-05-12] MEDS: SENNA W/DOCUSATE (SENOKOT S) TABLET PO SCH ×2 (08:11→20:10)
[2021-05-12] MEDS: polyethylene glycoL POWDER 17 GM (MIRALAX) PACK PO SCH ×2 (08:11→21:17)
--- NOTE | 2021-05-12 09:01 | Cardiology Progress Note ---
Subjective Date Seen by Provider: May 12, 2021 Time Seen by Provider: 08:15 Subjective/Events-last exam Sitting up in bed, complaining of back pain. Denies any chest pain or dyspnea. Slightly tachycardic this morning. Review of Systems General: No Chills, No Night Sweats; Fatigue, Malaise; No Appetite, No Other HEENT: No Head Aches, No Visual Changes, No Eye Pain, No Ear Pain, No Dysphasia, No Sinus Congestion, No Post Nasal Drip, No Sore Throat, No Other Pulmonary: No Dyspnea, No Cough, No Pleuritic Chest Pain, No Other Cardiovascular: No: Chest Pain, Palpitations, Orthopnea, Paroxysmal Noc. Dyspnea, Edema, Lt Headedness, Other Objective-Cardiology Exam Last Set of Vital Signs Vital Signs 05/12/21 05/12/21 10:04 10:50 Temp 36.4 Pulse 106 Resp 20 B/P (MAP) 108/68 (81) Pulse Ox 95 O2 Delivery Room Air I&O Intake and Output 05/12/21 00:00 Intake Total 1650 ml Output Total 800 ml Balance 850 ml Intake Oral 1550 ml IV Total 100 ml Output Urine Total 800 ml Bladder Scan Volume Amount 474 ml 12 ml # Voids 2 # Urine Diapers 1 General: Alert, Oriented X3, Cooperative HEENT: Atraumatic, PERRLA Neck: Supple, No JVD, No Thyromegaly Lungs: Clear to Auscultation, Normal Air Movement Heart: Regular Rate, Normal S1, Normal S2, No Murmurs Abdomen: Normal Bowel Sounds, Soft, No Tenderness, No Hepatosplenomegaly, No Ma sses Extremities: No Clubbing, No Cyanosis, No Edema, Normal Pulses, No Tender ness/Swelling Skin: No Rashes, No Breakdown, No Significant Lesion Neuro: Normal Speech, Normal Tone, Sensation Intact Psych/Mental Status: Mental Status NL, Mood NL Results Lab Laboratory Tests 05/12/21 05:35 A/P-Cardiology Admission Diagnosis Atrial fibrillation Coronary artery disease Hypertension Anemia Assessment/Plan Atrial fibrillation with controlled ventricular rate, maintained on Cardizem CD 300 mg daily and Toprol-XL 50 mg twice daily. Having few episodes of borderline tachycardia, continue on current medications and monitor [id number] score 4, yearly risk of stroke without oral anticoagulation is 4%, maintained on Eliquis. Anemia, monitor H&H. Coronary artery disease, history of CABG x3 done in 2013, reported that he had 2 stents placed in 2018. He is currently asymptomatic. Maintained on Plavix. Continue to monitor Lumbar spine surgery on April 21, 2021, slow recovery, having myelopathy and spondylosis and generalized weakness and back pain. Aspiration pneumonia, receiving Zosyn and vancomycin Postoperative anemia, managed by medical team, monitor H&H Hypertension, continue to monitor blood pressure Hyperlipidemia, monitor lipids Bacteremia, gram-positive cocci. PICC line was placed. Continue to monitor and will evaluate 2D echocardiogram for any possible vegetation Supervisory-Addendum Brief Supervisory Addendum Participated in pt care: history, MDM, physical Personally performed: exam, history, MDM Care discussed with: XAVIER Results interpretation: Verified all documentation Notes: Patient was seen and evaluated with Perez, examination performed, management plan was discussed, agree with the current scribed note, I made few changes to the note using Italic font Patient is sitting comfortably in a chair, reporting his back is better Still in atrial fibrillation Continue on Eliquis and Plavix Continue on Toprol and Cardizem and monitor blood pressure Monitor H&H PEREZ MONTIEL May 12, 2021 09:01 LAQUITA JAMIL MD May 12, 2021 11:57
--- NOTE | 2021-05-12 10:02 | Occupational Ther Daily Note ---
OT Current Status-Daily Note Subjective Pt sweating profusely at OT arrival. RN reports patient had a slight fever earlier in am. Pt still agreeable to treatment. Reports pain as 7/10 in his back during treatment. Appearance Pt left sitting in recliner, all needs within reach, RN in room. Mental Status/Objective Attachments: IV ADL-Treatment Therapy Code Descriptions/Definitions Functional [place] Measure: 0=Not Assessed/NA 4=Minimal Assistance 1=Total Assistance 5=Supervision or Setup 2=Maximal Assistance 6=Modified [place] 3=Moderate Assistance 7=Complete IndependenceSCALE: Activities may be completed with or without assistive devices. 8-Evibnsnzoj-ikuload completes the activity by him/herself with no assistance from a helper. 5-Set-up or Clean-up Assistance-helper sets up or cleans up; patient completes activity. [place] assists only prior to or following the activity. 4-Supervision or Touching Assistance-helper provides verbal cues and/or touching/steadying and/or contact guard assistance as patient completes activity. Assistance may be provided throughout the activity or intermittently. 3-Partial/Moderate Assistance-helper does LESS THAN HALF the effort. [place] lifts, holds or supports trunk or limbs, but provides less than half the effort. 2-Substantial/Maximal Assistance-helper does MORE THAN HALF the effort. [place] lifts or holds trunk or limbs and provides more than half the effort. 6-Bhakggvzk-zeciri does ALL the effort. Patient does none of the effort to complete the activity. Or, the assistance of 2 or more helpers is required for the patient to complete the activity. If activity was not attempted, code reason: 7-Patient Refused. 9-Not Applicable-not attempted and the patient did not perform the activity before the current illness, exacerbation or injury. 10-Not Attempted due to Environmental Limitations-(lack of equipment, weather restraints, etc.). 88-Not Attempted due to Medical Conditions or Safety Concerns. Shower/Bathe Self (QC): 3 Lower Body Dressing (QC): 3 Toileting Hygiene (QC): 4 Toilet Transfer (QC): 4 Pt cockeyed in bed at OT arrival, sweating profusely. RN reports fever earlier in the morning. Education on positioning in bed in order to adhere to spinal precautions. Reminder on log roll technique, min-mod a to elevate torso. Pt reports slight dizziness upon sitting upright. Improves with short rest. Sit< >stand: SBA-CGA. Able to don/doff back brace with Set up. He ambulated to/from bathroom with CGA and use of walker. Sponge bath performed seated at the sink. Pt washed upper body and yolis are only, set up/supervision. Pt requests to don new gown vs clothing due to being hot and sweating. Dressing on back also draining from bottom, thus leaking onto underwear. Disposable brief donned to keep clothes from being soiled. With LB dressing, OT instructed pt on use of planimeter operator in order to adhere to spinal precautions. Min a needed to thread RLE with use of planimeter operator, pt able to thread L with cues only. He stood with SBA to pull clothing over hips. He sat at the sink to shave initially with electric razor and then manual; SBA. Small cut on side of lip, band-aid applied, RN informed. Toileted utilized x3 during session as pt having difficulty urinating. Successful last attempt. Education OT Patient Education: Correct positioning, Disease process, Energy conservation, Modified ADL techniques, Progress toward Goal/Update tx plan, Purpose of tx/functional activities, Reviewed precautions, Safety issues, Transfer techniques, Use of adapted equipment Teaching Recipient: Patient Teaching Methods: Demonstration, Discussion Response to Teaching: Verbalize Understanding, Return Demonstration, Reinforcement Needed OT Short Term Goals Short Term Goals Time Frame: May 16, 2021 Eatin Oral hygiene: 6 Toileting hygiene: 5 Shower/bathe self: 4 Upper body dressin Lower body dressin Putting on/taking off footwear: 3 OT Skylights Assembler Goals Skylights Assembler Goals Time Frame: May 23, 2021 Eating (QC): 6 Oral Hygiene (QC): 6 Toileting Hygiene (QC): 6 Shower/Bathe Self (QC): 5 Upper Body Dressing (QC): 6 Lower Body Dressing (QC): 6 On/Off Footwear (QC): 5 1=Demonstrate adherence to instructed precautions during ADL tasks. 2=Patient will verbalize/demonstrate understanding of assistive devices/modifications for ADL. 3=Patient will improve strength/tolerance for activity to enable patient to perform ADL's. OT Education/Plan Problem List/Assessment Assessment: Decreased Activ Tolerance, Decreased Safety Aware, Decreased UE Strength, Impaired Bed Mobility, Impaired Funct Balance, Impaired I ADL's, Impaired Self-Care Skills Discharge Recommendations Plan/Recommendations: Continue POC Equpiment Recommendations-D/C: Advertising Photographer Treatment Plan/Plan of Care Treatment,Training & Education: Yes Patient would benefit from OT for education, treatment and training to promote independence in ADL's, mobility, safety and/or upper extremity function for ADL's. Plan of Care: ADL Retraining, Functional Mobility, Group Exercise/Act as Ind, UE Funct Exercise/Act Treatment Duration: May 23, 2021 Frequency: At least 5 of 7 days/Wk (IRF) Estimated Hrs Per Day: 1.5 hours per day Agreement: Yes Rehab Potential: Good Time/GCodes Start Time: 09:00 Stop Time: 10:00 Total Time Billed (hr/min): 60 Billed Treatment Time 1 visit ADL x4 Simona Paul OT May 12, 2021 10:02
[2021-05-12 10:04] VITALS: BP 108/68
--- NOTE | 2021-05-12 11:55 | Physical Therapy Daily Note ---
PT Daily Note-Current Subjective Pt. agrees to Rx, requests pain meds of nurse as well as muscle relaxer. Nurse responds. Pt. c/o during rx that his legs itch as well as the area around his incision. Pt. requests lotion to his legs , this AUTHOR AGENT lotioned patients legs under TEDs Pain Numeric Pain Scale: 7 Location: Medial Location Body Site: Back Pain Description: Ache Appearance pts brief and gown and dressing saturated from drainage from wound Mental Status Patient Orientation: Normal For Age Attachments: Polar Pack, Other-See Comments (back brace) Transfers SCALE: Activities may be completed with or without assistive devices. 2-Ihekmdvfen-xehmvpi completes the activity by him/herself with no assistance from a helper. 5-Set-up or Clean-up Assistance-helper sets up or cleans up; patient completes activity. [place] assists only prior to or following the activity. 4-Supervision or Touching Assistance-helper provides verbal cues and/or touching/steadying and/or contact guard assistance as patient completes activity. Assistance may be provided throughout the activity or intermittently. 3-Partial/Moderate Assistance-helper does LESS THAN HALF the effort. [place] lifts, holds or supports trunk or limbs, but provides less than half the effort. 2-Substantial/Maximal Assistance-helper does MORE THAN HALF the effort. [place] lifts or holds trunk or limbs and provides more than half the effort. 8-Pypheqkio-gmllri does ALL the effort. Patient does none of the effort to complete the activity. Or, the assistance of 2 or more helpers is required for the patient to complete the activity. If activity was not attempted, code reason: 7-Patient Refused. 9-Not Applicable-not attempted and the patient did not perform the activity before the current illness, exacerbation or injury. 10-Not Attempted due to Environmental Limitations-(lack of equipment, weather restraints, etc.). 88-Not Attempted due to Medical Conditions or Safety Concerns. Roll Left & Right (QC): 6 Sit to Lying (QC): 6 Lying to Sitting/Side of Bed(Q: 6 Sit to Stand (QC): 6 Chair/Mee-xu-Eesak Xfer(QC): 6 Weight Bearing back precautions Gait Training Does the Patient Walk?: Yes Walk 10 feet (QC): 6 Walk 50 ft with 2 Turns(QC): 6 Walk 150 ft (QC): 6 Gait Assistive Device: FWW flexed at trunk, moderate wt bearing on FWW, no LOB, good handling of AD Exercises Supine Ex: Ankle pumps, Rolling, Short Arc Quads, Hip abd/add Supine Reps: 10 Seated Therapy Exercises: Ankle pumps, Sit to stand, Long arc quads, Hip flexion Seated Reps: 10 NuStep Minutes: 10 NuStep Workload: 1 Treatments pt. indep to [place]ry and doff back brace, required max assist to doff brief and soiled gown and perry fresh Assessment Current Status: Good Progress gives full effort PT Short Term Goals Short Term Goals Time Frame: May 16, 2021 Roll Left & Right: 4 (SBA) Sit to lyin (SA) Lying to sitting on side of be: 4 (SBA) Sit to stand: 4 (SBA) Chair/yzx-lc-xrjsv transfer: 4 (SBA) Walk 10 feet: 4 (SBA) Walk 50 feet with two turns: 4 (SBA) Walk 150 feet: 4 (SBA) PT Painter Supervisor Goals Painter Supervisor Goals PT Painter Supervisor Goals Time Frame: May 30, 2021 Roll Left & Right (QC): 6 Sit to Lying (QC): 6 Lying-Sitting on Side/Bed(QC): 6 Sit to Stand (QC): 6 Chair/Ypk-fq-Zhoca Xfer(QC): 6 Toilet Transfer (QC): 6 Car Transfer (QC): 6 Does the Patient Walk: Yes Walk 10 feet (QC): 6 Walk 50ft with 2 Turns (QC): 6 Walk 150 ft (QC): 6 Walking 10ft on Uneven Surface: 6 1 Step (curb) (QC): 4 (SBA) 4 Steps (QC): 4 (SBA) 12 Steps (QC): 88 Picking up an Object (QC): 6 Wheel 50 feet with 2 turns (QC: 9 Wheel 150 feet: 9 PT Plan Treatment/Plan Treatment Plan: Continue Plan of Care Treatment Plan: Bed Mobility, Education, Functional Activity Catracho, Functional Strength, Group Therapy, Gait, Safety, Therapeutic Exercise, Transfers Treatment Duration: May 30, 2021 Frequency: At least 5 of 7 days/Wk (IRF) Estimated Hrs Per Day: 1.5 hours per day Patient and/or Family Agrees t: Yes Safety Risks/Education Patient Education: Gait Training, Transfer Techniques, Correct Positioning, Disease Process, Safety Issues Teaching Recipient: Patient Teaching Methods: Demonstration, Discussion Response to Teaching: Verbalize Understanding, Return Demonstration, Reinforcement Needed Time/GCodes Time In: 1000 Time Out: 1100 Total Billed Treatment Time: 60 Total Billed Treatment 1,GT15m,FA20m,EX25m KEIKO COLBY AUTHOR AGENT May 12, 2021 11:55
--- NOTE | 2021-05-12 12:11 | Occupational Ther Daily Note ---
OT Current Status-Daily Note Subjective Pt reports feeling much better this session. Appears to be in better spirits Appearance Pt left sitting in recliner, all needs within reach at therapy departure. ADL-Treatment Therapy Code Descriptions/Definitions Functional [place] Measure: 0=Not Assessed/NA 4=Minimal Assistance 1=Total Assistance 5=Supervision or Setup 2=Maximal Assistance 6=Modified [place] 3=Moderate Assistance 7=Complete IndependenceSCALE: Activities may be completed with or without assistive devices. 7-Rthdinypah-wdbehmr completes the activity by him/herself with no assistance from a helper. 5-Set-up or Clean-up Assistance-helper sets up or cleans up; patient completes activity. [place] assists only prior to or following the activity. 4-Supervision or Touching Assistance-helper provides verbal cues and/or touching/steadying and/or contact guard assistance as patient completes activity. Assistance may be provided throughout the activity or intermittently. 3-Partial/Moderate Assistance-helper does LESS THAN HALF the effort. [place] lifts, holds or supports trunk or limbs, but provides less than half the effort. 2-Substantial/Maximal Assistance-helper does MORE THAN HALF the effort. [place] lifts or holds trunk or limbs and provides more than half the effort. 6-Dphhonvpd-yfwtyi does ALL the effort. Patient does none of the effort to complete the activity. Or, the assistance of 2 or more helpers is required for the patient to complete the activity. If activity was not attempted, code reason: 7-Patient Refused. 9-Not Applicable-not attempted and the patient did not perform the activity before the current illness, exacerbation or injury. 10-Not Attempted due to Environmental Limitations-(lack of equipment, weather restraints, etc.). 88-Not Attempted due to Medical Conditions or Safety Concerns. Toileting Hygiene (QC): 4 Toilet Transfer (QC): 4 Other Treatment Pt participated in UE exercises with 2# hand held weight. Goal to promote increased endurance and strength needed for functional tasks. min-mod verbal and visual cues for correct form. He fatigues quickly at shoulder and requires AAROM after ~5-6 reps. Weight removed for all shoulder exercises. He reports old shoulder injury to bilateral shoulders. L shoulder did get surgery and appears to tolerate more reps than right. SOB notable with exertion, cues for PLB. 12 x1 all planes. Education OT Patient Education: Correct positioning, Exercise program, Modified ADL techniques, Purpose of tx/functional activities, Safety issues Teaching Recipient: Patient Teaching Methods: Demonstration, Discussion Response to Teaching: Verbalize Understanding, Return Demonstration, Reinforcement Needed OT Short Term Goals Short Term Goals Time Frame: May 16, 2021 Eatin Oral hygiene: 6 Toileting hygiene: 5 Shower/bathe self: 4 Upper body dressin Lower body dressin Putting on/taking off footwear: 3 OT Assisted Goals Assisted Goals Time Frame: May 23, 2021 Eating (QC): 6 Oral Hygiene (QC): 6 Toileting Hygiene (QC): 6 Shower/Bathe Self (QC): 5 Upper Body Dressing (QC): 6 Lower Body Dressing (QC): 6 On/Off Footwear (QC): 5 1=Demonstrate adherence to instructed precautions during ADL tasks. 2=Patient will verbalize/demonstrate understanding of assistive devices/modifications for ADL. 3=Patient will improve strength/tolerance for activity to enable patient to perform ADL's. OT Education/Plan Problem List/Assessment Assessment: Decreased Activ Tolerance, Decreased UE Strength, Impaired Funct Balance, Impaired Self-Care Skills, Restricted Funct UE ROM Discharge Recommendations Plan/Recommendations: Continue POC Treatment Plan/Plan of Care Treatment,Training & Education: Yes Patient would benefit from OT for education, treatment and training to promote independence in ADL's, mobility, safety and/or upper extremity function for ADL's. Plan of Care: ADL Retraining, Functional Mobility, Group Exercise/Act as Ind, UE Funct Exercise/Act Treatment Duration: May 23, 2021 Frequency: At least 5 of 7 days/Wk (IRF) Estimated Hrs Per Day: 1.5 hours per day Agreement: Yes Rehab Potential: Good Time/GCodes Start Time: 11:30 Stop Time: 12:00 Total Time Billed (hr/min): 30 Billed Treatment Time 1 visit EX Simona Cheney OT May 12, 2021 12:11
[2021-05-12] MEDS ORDERED: TROUGH ORDER-PHARMACY XX NR (13:00)
[2021-05-12] MEDS: BACLOFEN 10 MG (LIORESAL) TAB PO PRN (13:24)
--- NOTE | 2021-05-12 14:40 | Physical Therapy Daily Note ---
PT Daily Note-Current Subjective Pt in bed, at his side. Pt. states he really would rather just nap but agrees to ther ex in bed. Pain Numeric Pain Scale: 5-Moderate Pain Location: Right Location Body Site: Hip (groin area) Pain Description: Pressure Appearance grimaces with pain with exercises in groin area during RLE hip flexion Mental Status Patient Orientation: Normal For Age Transfers SCALE: Activities may be completed with or without assistive devices. 0-Ljtqmaahdw-segrdcc completes the activity by him/herself with no assistance from a helper. 5-Set-up or Clean-up Assistance-helper sets up or cleans up; patient completes activity. [place] assists only prior to or following the activity. 4-Supervision or Touching Assistance-helper provides verbal cues and/or touching/steadying and/or contact guard assistance as patient completes activity. Assistance may be provided throughout the activity or intermittently. 3-Partial/Moderate Assistance-helper does LESS THAN HALF the effort. [place] lifts, holds or supports trunk or limbs, but provides less than half the effort. 2-Substantial/Maximal Assistance-helper does MORE THAN HALF the effort. [place] lifts or holds trunk or limbs and provides more than half the effort. 2-Hqjwhawvw-mecqik does ALL the effort. Patient does none of the effort to complete the activity. Or, the assistance of 2 or more helpers is required for the patient to complete the activity. If activity was not attempted, code reason: 7-Patient Refused. 9-Not Applicable-not attempted and the patient did not perform the activity before the current illness, exacerbation or injury. 10-Not Attempted due to Environmental Limitations-(lack of equipment, weather restraints, etc.). 88-Not Attempted due to Medical Conditions or Safety Concerns. pt. rolls, pushes self up in bed using UEs with bed flat all indep Weight Bearing back precautions Exercises Supine Ex: Ankle pumps, Quad Set, Rolling, Glut sets, Heel Slides, Short Arc Quads, Scooting, Straight leg raise (2-4 reps, poor tolerance), Hip abd/add Supine Reps: 10 (x2) Treatments supine LE ex, left in right sidelying with pillow support behind pt and pillow between legs Assessment Current Status: Fair Progress pt. c/o fatigue, pain in groin area with certain ex PT Short Term Goals Short Term Goals Time Frame: May 16, 2021 Roll Left & Right: 4 (SBA) Sit to lyin (SA) Lying to sitting on side of be: 4 (SBA) Sit to stand: 4 (SBA) Chair/nop-ey-kxfmk transfer: 4 (SBA) Walk 10 feet: 4 (SBA) Walk 50 feet with two turns: 4 (SBA) Walk 150 feet: 4 (SBA) PT Gas And Oil Servicer Goals Nursing Home Goals PT Nursing Home Goals Time Frame: May 30, 2021 Roll Left & Right (QC): 6 Sit to Lying (QC): 6 Lying-Sitting on Side/Bed(QC): 6 Sit to Stand (QC): 6 Chair/Why-bp-Sscki Xfer(QC): 6 Toilet Transfer (QC): 6 Car Transfer (QC): 6 Does the Patient Walk: Yes Walk 10 feet (QC): 6 Walk 50ft with 2 Turns (QC): 6 Walk 150 ft (QC): 6 Walking 10ft on Uneven Surface: 6 1 Step (curb) (QC): 4 (SBA) 4 Steps (QC): 4 (SBA) 12 Steps (QC): 88 Picking up an Object (QC): 6 Wheel 50 feet with 2 turns (QC: 9 Wheel 150 feet: 9 PT Plan Treatment/Plan Treatment Plan: Continue Plan of Care Treatment Plan: Bed Mobility, Education, Functional Activity Catr[place], Functional Strength, Group Therapy, Gait, Safety, Therapeutic Exercise, Transfers Treatment Duration: May 30, 2021 Frequency: At least 5 of 7 days/Wk (IRF) Estimated Hrs Per Day: 1.5 hours per day Patient and/or Family Agrees t: Yes Safety Risks/Education Patient Education: Correct Positioning Time/GCodes Time In: 1400 Time Out: 1430 Total Billed Treatment Time: 30 Total Billed Treatment 1,EX30m KEIKO COLBY COMMAND AND CONTROL May 12, 2021 14:40
[2021-05-12] MEDS ORDERED: PATIENT MAY USE OWN MED,SINGLE MED PO SCH (14:45)
[2021-05-12] MEDS: metFORMIN 500 MG (GLUCOPHAGE) TAB PO SCH (17:13)
[2021-05-12 20:39] VITALS: BP 111/56
[2021-05-12] MEDS: FLUTICASONE NASAL SPRAY (FLONASE) 16 GM BTL NS SCH (21:28)
[2021-05-13] MEDS: BACLOFEN 10 MG (LIORESAL) TAB PO PRN ×2 (02:39→10:04)
--- NOTE | 2021-05-13 05:53 | PM&R Progress Note ---
Subjective HPI/CC On Admission Date Seen by Provider: May 13, 2021 Time Seen by Provider: 08:30 Subjective/Events-last exam 05/13/2021: Pt is doing okay Took his Linzess today for constipation Wound culture pending but later in the day and showed staph aureus and I reached out to Dr. BOSTON and he recommends wound VAC and may need a washout on Wednesday Rocephin maintained PICC line functioning well Baclofen helped with the pain 05/12/21: Pt is having a lot of pain Added Baclofen Plavix may be discontinued due to hemoglobin Dr. Farias has evaluated him Changed Zosyn and Vancomycin to Rocephin due to MSSA on culture at [facility] and blood cultures Dr. BOSTON request a wound culture on the wound drainage 05/11/2021: Patient doing really well Increased pain medication has helped Iron infusion and B12 supplement given Having urinary retention so started meds and performed in and out cath Check meds labs 05/10/2021: Patient doing really well Pain is an issue so I will change his hydrocodone to the 10/325 since he does have tolerance for that Awaiting iron level and B12 level suspect both low We'll discontinue catheter today and he is in agreement with that Checked meds and labs Appreciate Dr. Farias Review of Systems General: Fatigue Musculoskeletal: back pain Objective Exam Vital Signs Vital Signs Date Time Temp Pulse Resp B/P (MAP) Pulse Ox O2 Delivery O2 Flow Rate FiO2 05/13/21 20:30 Room Air 05/13/21 20:00 36.2 106 59 106/59 (75) 95 Capillary Refill : General Appearance: No Apparent Distress, WD/WN, Chronically ill HEENT: PERRL/EOMI, Normal ENT Inspection, Pharynx Normal Neck: Full Range of Motion, Normal Inspection, Non Tender, Supple, Carotid Bruit Respiratory: Chest Non Tender, Lungs Clear, Normal Breath Sounds, No Accessory Muscle Use, No Respiratory Distress Cardiovascular: No Edema, No Gallop, No JVD, No Murmur, Normal Peripheral Pulses, Irregularly Irregular Gastrointestinal: Normal Bowel Sounds, No Organomegaly, No Pulsatile Mass, Non Tender, Soft Back: CVA Tenderness (L), CVA Tenderness (R), Decreased Range of Motion, Vertebral Tenderness Extremity: Normal Capillary Refill, Normal Inspection, Normal Range of Motion, Non Tender, No Calf Tenderness, No Pedal Edema Neurologic/Psychiatric: Alert, Oriented x3, No Motor/Sensory Deficits, Normal Mood/Affect, 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 FIM Transfers Therapy Code Descriptions/Definitions Functional [place] Measure: 0=Not Assessed/NA 4=Minimal Assistance 1=Total Assistance 5=Supervision or Setup 2=Maximal Assistance 6=Modified [place] 3=Moderate Assistance 7=Complete IndependenceSCALE: Activities may be completed with or without assistive devices. 1-Weahkydptl-fcyucpi completes the activity by him/herself with no assistance from a helper. 5-Set-up or Clean-up Assistance-helper sets up or cleans up; patient completes activity. [place] assists only prior to or following the activity. 4-Supervision or Touching Assistance-helper provides verbal cues and/or touching/steadying and/or contact guard assistance as patient completes activity. Assistance may be provided throughout the activity or intermittently. 3-Partial/Moderate Assistance-helper does LESS THAN HALF the effort. [place] lifts, holds or supports trunk or limbs, but provides less than half the effort. 2-Substantial/Maximal Assistance-helper does MORE THAN HALF the effort. [place] lifts or holds trunk or limbs and provides more than half the effort. 8-Cxsysbrht-siohak does ALL the effort. Patient does none of the effort to complete the activity. Or, the assistance of 2 or more helpers is required for t he patient to complete the activity. If activity was not attempted, code reason: 7-Patient Refused. 9-Not Applicable-not attempted and the patient did not perform the activity before the current illness, exacerbation or injury. 10-Not Attempted due to Environmental Limitations-(lack of equipment, weather restraints, etc.). 88-Not Attempted due to Medical Conditions or Safety Concerns. Roll Left to Right (QC): 6 Sit to Lying (QC): 6 Sit to Stand (QC): 6 Chair/Rld-ha-Gubnv Xfer(QC): 6 Car Transfer (QC): 4 Gait Training Does the Patient Walk?: Yes Walk 10 feet (QC): 6 Walk 50 ft with 2 Turns(QC): 6 Walk 150 ft (QC): 6 Walking 10ft/uneven surface-QC: 4 Gait Assistive Device: FWW Wheelchair Training Does the Pt Use a Wheelchair?: No Wheel 50 ft with 2 turns (QC): 9 Wheel 150 ft (QC): 9 Stair Training #of Steps: 1 1 Step (curb) (QC): 4 4 Steps (QC): 88 12 Steps (QC): 88 Balance Picking up an Object (QC): 4 (CGA using refractory technician) ADL-Treatment Eating (QC): 5 Oral Hygiene (QC): 4 (pt reports he only rinses dentures. Able to perform standing at sink with CGA) Shower/Bathe Self (QC): 3 Upper Body Dressing (QC): 10 (no appropriate size clothing available at time of eval) Lower Body Dressing (QC): 3 On/Off Footwear (QC): 2 Toileting Hygiene (QC): 4 Toilet Transfer (QC): 4 Assessment/Plan Assessment and Plan Assess & Plan/Chief Complaint Assessment: Lumbar spine surgery with slow recovery and failure at home due to spondylosis with myelopathy Aspiration pneumonia status post on Zosyn and Vanco for 6 days discontinued 05/11/2021 due to MSSA on blood cultures Postoperative anemia received 2 units of blood 2 weeks ago receiving iron infusions and B12 supplement Atrial fibrillation with variation in rate consulting cardiology CAD previous stents maintained on Plavix Hypertension Hyperlipidemia Li cath in place discontinued 05/10/2021 now having retention on 05/11/2021 so started on Urecholine and Flomax and performing in and out caths Bacteremia with gram-positive cocci PICC line was placed 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 BOSTON on Wednesday Plan: Pain control Li cath will be discontinued soon PICC line IV antibiotics Aggressive rehab 05/10/2021: IV antibiotics DC catheter Appreciate Dr. Farias Increase pain medication 05/11/2021: IV antibiotics Urinary retention management 05/12/2021: Wound culture per Dr. Boston Maintain Rocephin May need I&D of the wound 05/13/2021: Maintain Rocephin Baclofen helpful Wound VAC may be needed (1) Spondylosis of lumbar spine with myelopathy DIANE DAMIAN DO May 13, 2021 05:53
[2021-05-13] MEDS: CYANOCOBALAMIN 1,000 MCG (VITAMIN B-12) TABLET PO SCH (06:34)
[2021-05-13] MEDS: BETHANECHOL 25 MG (URECHOLINE) TAB PO SCH ×4 (06:34→20:43)
[2021-05-13] MEDS: PRESERVISION AREDS SOFTGEL (BAUSH & LOMB) PO SCH (06:35)
[2021-05-13] MEDS: CATHETER FLUSH 10 ML SYR IV SCH ×3 (06:36→20:51)
[2021-05-13] MEDS: LINACLOTIDE 290 MCG (LINZESS) CAPSULE PO SCH (06:36)
[2021-05-13 07:07] LABS: BASOPHILS % (AUTO) 0 % (0-10); EOSINOPHILS # (AUTO) 0.1 10^3/uL (0.0-0.3); EOSINOPHILS % (AUTO) 2 % (0-10); LYMPHOCYTES # (AUTO) 1.1 10^3/uL (1.0-4.0); MEAN CORPUSCULAR VOLUME 87 fL (80-99)
[2021-05-13 07:08] LABS: HEMATOCRIT 26 % (40-54); HEMOGLOBIN 7.9 g/dL (13.3-17.7); LYMPHOCYTES % (AUTO) 42 % (12-44); MEAN CORPUSCULAR HEMOGLOBIN 27 pg (25-34); MEAN CORPUSCULAR HGB CONC 31 g/dL (32-36); MONOCYTES # (AUTO) 0.3 10^3/uL (0.0-1.0); MONOCYTES % (AUTO) 12 % (0-12); NEUTROPHILS # (AUTO) 1.2 10^3/uL (1.8-7.8); NEUTROPHILS % (AUTO) 44 % (42-75); PLATELET COUNT 73 10^3/uL (130-400); WHITE BLOOD COUNT 2.7 10^3/uL (4.3-11.0)
[2021-05-13 07:22] LABS: ALBUMIN 2.5 GM/DL (3.2-4.5); BILIRUBIN,TOTAL 0.4 MG/DL (0.1-1.0); CALCIUM 6.7 MG/DL (8.5-10.1); CREATININE SERUM 1.01 MG/DL (0.60-1.30); TOTAL PROTEIN 5.7 GM/DL (6.4-8.2)
--- NOTE | 2021-05-13 08:07 | Cardiology Progress Note ---
Subjective Date Seen by Provider: May 13, 2021 Time Seen by Provider: 07:50 Subjective/Events-last exam Patient is sitting up in chair, no new complaints. Denies any chest pain. Continues to complain of some back pain. Review of Systems General: No Chills, No Night Sweats; Fatigue, Malaise; No Appetite, No Other HEENT: No Head Aches, No Visual Changes, No Eye Pain, No Ear Pain, No Dysphasia, No Sinus Congestion, No Post Nasal Drip, No Sore Throat, No Other Pulmonary: No Dyspnea, No Cough, No Pleuritic Chest Pain, No Other Cardiovascular: No: Chest Pain, Palpitations, Orthopnea, Paroxysmal Noc. Dyspnea, Edema, Lt Headedness, Other Objective-Cardiology Exam Last Set of Vital Signs Vital Signs 05/13/21 10:44 Temp 36.2 Pulse 111 Resp 22 B/P (MAP) 100/61 (74) Pulse Ox 99 O2 Delivery Room Air I&O Intake and Output 05/13/21 00:00 Intake Total 1050 ml Output Total 1500 ml Balance -450 ml Intake Oral 1000 ml IV Total 50 ml Output Urine Total 1500 ml General: Alert, Oriented X3, Cooperative HEENT: Atraumatic, PERRLA Neck: Supple, No JVD, No Thyromegaly Lungs: Clear to Auscultation, Normal Air Movement Heart: Regular Rate, Normal S1, Normal S2, No Murmurs Abdomen: Normal Bowel Sounds, Soft, No Tenderness, No Hepatosplenomegaly, No Masses Extremities: No Clubbing, No Cyanosis, No Edema, Normal Pulses, No Tenderness/Swelling Skin: No Rashes, No Breakdown, No Significant Lesion Neuro: Normal Speech, Normal Tone, Sensation Intact Psych/Mental Status: Mental Status NL, Mood NL Results Lab Laboratory Tests 05/13/21 06:44 A/P-Cardiology Admission Diagnosis Atrial fibrillation Coronary artery disease Hypertension Anemia Assessment/Plan Atrial fibrillation with controlled ventricular rate, maintained on Cardizem CD 300 mg daily and Toprol-XL 50 mg twice daily. Having few episodes of borderline tachycardia, continue on current medications and monitor [id number] score 4, yearly risk of stroke without oral anticoagulation is 4%, maintained on Eliquis. Anemia, monitor H&H. Coronary artery disease, history of CABG x3 done in 2012, reported that he had 2 stents placed in 2018. He is currently asymptomatic. Maintained on Plavix. Continue to monitor Lumbar spine surgery on April 21, 2021, slow recovery, having myelopathy and spondylosis and generalized weakness and back pain. Aspiration pneumonia, receiving Zosyn and vancomycin Postoperative anemia, managed by medical team, monitor H&H Hypertension, continue to monitor blood pressure Hyperlipidemia, monitor lipids Bacteremia, gram-positive cocci. PICC line was placed. 2D Echo done showed no evidence of vegetation. Supervisory-Addendum Brief Supervisory Addendum Participated in pt care: history, MDM, physical Personally performed: exam, history, MDM Care discussed with: XAVIER Notes: Patient was seen and evaluated with Perez, examination performed, management plan was discussed, agree with the current scribed note, I made few changes to the note using Italic font Patient was sitting in a chair, feeling better No new complaint Still having some back pain Continue to monitor heart rate and blood pressure and continue current medication PEREZ MONTIEL May 13, 2021 08:07 LAQUITA JAMIL MD May 13, 2021 12:31
[2021-05-13] MEDS: APIXABAN 5 MG (ELIQUIS) TABLET PO SCH ×2 (09:53→20:42)
[2021-05-13] MEDS: meTOproloL SUCCINATE 50 MG (TOPROL XL) TAB PO SCH ×2 (09:53→20:43)
[2021-05-13] MEDS: SPIRONOLACTONE 25 MG (ALDACTONE) TAB PO SCH (09:53)
[2021-05-13] MEDS: PANTOPRAZOLE 40 MG (PROTONIX) TAB PO SCH (09:53)
[2021-05-13] MEDS: TAMSULOSIN 0.4 MG (FLOMAX) CAP PO SCH ×2 (09:54→17:55)
[2021-05-13] MEDS: FUROSEMIDE 40 MG (LASIX) TAB PO SCH (09:54)
[2021-05-13] MEDS: KCL 10 MEQ TAB (MICRO K) PO SCH ×2 (09:54→17:55)
[2021-05-13] MEDS: DOCUSATE SODIUM 100 MG (COLACE) CAP PO SCH ×2 (10:03→20:42)
[2021-05-13] MEDS: CLOPIDOGREL 75 MG (PLAVIX) TABLET PO SCH (10:03)
[2021-05-13] MEDS: cefTRIAXone 1 GM PRE-MIX 50 ML IV SCH (10:07)
[2021-05-13] MEDS: SENNA W/DOCUSATE (SENOKOT S) TABLET PO SCH ×2 (10:12→20:42)
[2021-05-13 10:44] VITALS: BP 100/61
--- NOTE | 2021-05-13 11:23 | Occupational Ther Daily Note ---
OT Current Status-Daily Note Subjective Pt reports back pain initially as 7/10 but improves to a 4/10 towards end of treatment. RN aware. Appearance Pt left sitting in recliner, all needs within reach. Mental Status/Objective Attachments: IV ADL-Treatment Therapy Code Descriptions/Definitions Functional [place] Measure: 0=Not Assessed/NA 4=Minimal Assistance 1=Total Assistance 5=Supervision or Setup 2=Maximal Assistance 6=Modified [place] 3=Moderate Assistance 7=Complete IndependenceSCALE: Activities may be completed with or without assistive devices. 3-Ezbrxzhygl-ffniyxj completes the activity by him/herself with no assistance from a helper. 5-Set-up or Clean-up Assistance-helper sets up or cleans up; patient completes activity. [place] assists only prior to or following the activity. 4-Supervision or Touching Assistance-helper provides verbal cues and/or touching/steadying and/or contact guard assistance as patient completes activity. Assistance may be provided throughout the activity or intermittently. 3-Partial/Moderate Assistance-helper does LESS THAN HALF the effort. [place] lifts, holds or supports trunk or limbs, but provides less than half the effort. 2-Substantial/Maximal Assistance-helper does MORE THAN HALF the effort. [place] lifts or holds trunk or limbs and provides more than half the effort. 2-[place] does ALL the effort. Patient does none of the effort to complete the activity. Or, the assistance of 2 or more helpers is required for the patient to complete the activity. If activity was not attempted, code reason: 7-Patient Refused. 9-Not Applicable-not attempted and the patient did not perform the activity before the current illness, exacerbation or injury. 10-Not Attempted due to Environmental Limitations-(lack of equipment, weather restraints, etc.). 88-Not Attempted due to Medical Conditions or Safety Concerns. Shower/Bathe Self (QC): 4 Upper Body Dressing (QC): 4 Lower Body Dressing (QC): 3 Toileting Hygiene (QC): 4 Toilet Transfer (QC): 4 Extra time to rouse. Pt slightly more confused this date. Reduced short term memory notable with Repetition of commands required throughout session. RN reports patient received Benadryl last night and appears to alter his mental status. Sponge bath performed seated at sink. OT issued and instructed pt on use of LHS for lower body. Post instruction, pt able to complete without assist. Feet not addressed. Supervision for safety as he stood to wash yolis area. Reminder cues required on correct use of air conditioning unit tester when threading feet into LB clothing. Min-mod a still needed to thread R foot. Pt able to stand and manage clothing over waist without assist. Several trips (5) to the toilet needed during session. Pt often attempting to urinate but unsuccessful until last attempt. Pt does get SOB with exertion and need short breaks throughout adls. Other Treatment While seated, pt participated in UE exercises with 2# dowel cecy. Initially pt tolerates well but with 2nd set, he requires a rest break after each exercise. Shoulder movements performed to 90 degrees only. 12 x2 all planes. Min cues for improved technique. Education OT Patient Education: Correct positioning, Disease process, Energy conservation, Exercise program, Modified ADL techniques, Progress toward Goal/Update tx plan, Purpose of tx/functional activities, Reviewed precautions, Safety issues, Transfer techniques, Use of adapted equipment Teaching Recipient: Patient Teaching Methods: Demonstration, Discussion Response to Teaching: Verbalize Understanding, Return Demonstration, Reinforcement Needed OT Short Term Goals Short Term Goals Time Frame: May 16, 2021 Eatin Oral hygiene: 6 Toileting hygiene: 5 Shower/bathe self: 4 Upper body dressin Lower body dressin Putting on/taking off footwear: 3 OT Sales Technician Home Theater Goals [facility] Goals Time Frame: May 23, 2021 Eating (QC): 6 Oral Hygiene (QC): 6 Toileting Hygiene (QC): 6 Shower/Bathe Self (QC): 5 Upper Body Dressing (QC): 6 Lower Body Dressing (QC): 6 On/Off Footwear (QC): 5 1=Demonstrate adherence to instructed precautions during ADL tasks. 2=Patient will verbalize/demonstrate understanding of assistive devices/modifications for ADL. 3=Patient will improve strength/tolerance for activity to enable patient to perform ADL's. OT Education/Plan Problem List/Assessment Assessment: Decreased Activ Tolerance, Decreased Safety Aware, Decreased UE Strength, Impaired Funct Balance, Impaired Self-Care Skills, Restricted Funct UE ROM Discharge Recommendations Plan/Recommendations: Continue POC Treatment Plan/Plan of Care Treatment,Training & Education: Yes Patient would benefit from OT for education, treatment and training to promote independence in ADL's, mobility, safety and/or upper extremity function for ADL's. Plan of Care: ADL Retraining, Functional Mobility, Group Exercise/Act as Ind, UE Funct Exercise/Act Treatment Duration: May 23, 2021 Frequency: At least 5 of 7 days/Wk (IRF) Estimated Hrs Per Day: 1.5 hours per day Agreement: Yes Rehab Potential: Good Time/GCodes Start Time: 09:30 Stop Time: 11:00 Total Time Billed (hr/min): 90 Billed Treatment Time 1 visit ADL x4 (60 min) EX x2 (30 min) Simona Paul OT May 13, 2021 11:23
--- NOTE | 2021-05-13 11:57 | Physical Therapy Daily Note ---
PT Daily Note-Current Subjective Pt sitting in recliner upon arrival. Pt agrees to PT and asks to try a SPC. Pain Numeric Pain Scale: 6 Location: Incisional, Lower Location Body Site: Back Pain Description: Stabbing Mental Status Patient Orientation: Person, Place, Time, M[place] Attachments: Other-See Comments (Back Brace) Transfers SCALE: Activities may be completed with or without assistive devices. 0-Utjaryuzui-fehyvsy completes the activity by him/herself with no assistance from a helper. 5-Set-up or Clean-up Assistance-helper sets up or cleans up; patient completes activity. [place] assists only prior to or following the activity. 4-Supervision or Touching Assistance-helper provides verbal cues and/or touching/steadying and/or contact guard assistance as patient completes activity. Assistance may be provided throughout the activity or intermittently. 3-Partial/Moderate Assistance-helper does LESS THAN HALF the effort. [place] lifts, holds or supports trunk or limbs, but provides less than half the effort. 2-Substantial/Maximal Assistance-helper does MORE THAN HALF the effort. [place] lifts or holds trunk or limbs and provides more than half the effort. 1-Gnjuxnfuz-msjbaa does ALL the effort. Patient does none of the effort to complete the activity. Or, the assistance of 2 or more helpers is required for the patient to complete the activity. If activity was not attempted, code reason: 7-Patient Refused. 9-Not Applicable-not attempted and the patient did not perform the activity before the current illness, exacerbation or injury. 10-Not Attempted due to Environmental Limitations-(lack of equipment, weather restraints, etc.). 88-Not Attempted due to Medical Conditions or Safety Concerns. Sit to Stand (QC): 5 Weight Bearing Full Weight Bearing Full Weight Bearing back precautions Gait Training Does the Patient Walk?: Yes Distance: 150' x2 Walk 10 feet (QC): 4 Walk 50 ft with 2 Turns(QC): 4 Walk 150 ft (QC): 4 Gait Persons Needed: 1 SBA using FWW but CGA using SPC for safety. No LOB but pt needed increased focus to use SPC. This increased back pain so went back to FWW. Treatments TF to standing and amb. in hallway. Pt takes RB then attempts amb. using SPC then again takes RB. Pt completes Seated Ex before returning to room to rest at end of tx. Pt repositioned as needed, All needs met, call light in hand. Assessment Current Status: Good Progress Pt reports increased pain in back when walking using SPC so returned to FWW. PT Short Term Goals Short Term Goals Time Frame: May 16, 2021 Roll Left & Right: 4 (SBA) Sit to lyin (SA) Lying to sitting on side of be: 4 (SBA) Sit to stand: 4 (SBA) Chair/eus-nd-rwxhn transfer: 4 (SBA) Walk 10 feet: 4 (SBA) Walk 50 feet with two turns: 4 (SBA) Walk 150 feet: 4 (SBA) PT [facility] Goals Ad Clerk Goals PT [facility] Goals Time Frame: May 30, 2021 Roll Left & Right (QC): 6 Sit to Lying (QC): 6 Lying-Sitting on Side/Bed(QC): 6 Sit to Stand (QC): 6 Chair/Rji-jy-Urgfn Xfer(QC): 6 Toilet Transfer (QC): 6 Car Transfer (QC): 6 Does the Patient Walk: Yes Walk 10 feet (QC): 6 Walk 50ft with 2 Turns (QC): 6 Walk 150 ft (QC): 6 Walking 10ft on Uneven Surface: 6 1 Step (curb) (QC): 4 (SBA) 4 Steps (QC): 4 (SBA) 12 Steps (QC): 88 Picking up an Object (QC): 6 Wheel 50 feet with 2 turns (QC: 9 Wheel 150 feet: 9 PT Plan Problem List Problem List: Activity Tolerance Treatment/Plan Treatment Plan: Continue Plan of Care Treatment Plan: Bed Mobility, Education, Functional Activity [place], Functional Strength, Group Therapy, Gait, Safety, Therapeutic Exercise, Transfers Treatment Duration: May 30, 2021 Frequency: At least 5 of 7 days/Wk (IRF) Estimated Hrs Per Day: 1.5 hours per day Patient and/or Family Agrees t: Yes Safety Risks/Education Patient Education: Gait Training Teaching Recipient: Patient Teaching Methods: Discussion Response to Teaching: Verbalize Understanding Time/GCodes Time In: 1100 Time Out: 1200 Total Billed Treatment Time: 60 Total Billed Treatment 1, EX (20m), GT x2 (25m) & FA (15m) CARMELO SAM PUBLIC SCHOOL TEACHER May 13, 2021 11:57
[2021-05-13] MEDS: polyethylene glycoL POWDER 17 GM (MIRALAX) PACK PO SCH ×2 (13:20→20:51)
--- NOTE | 2021-05-13 14:34 | Physical Therapy Daily Note ---
PT Daily Note-Current Subjective Patient in bed pre tx, agrees to PT, has 6/10 pain, nurse is aware but apparently is not time for pain meds. Appearance Patient in bed post tx with nurse call, phone, tray, all needs met. Mental Status Patient Orientation: Person, Place, Situation back brace Transfers SCALE: Activities may be completed with or without assistive devices. 8-Kbnyxpzexj-ervkfxj completes the activity by him/herself with no assistance from a helper. 5-Set-up or Clean-up Assistance-helper sets up or cleans up; patient completes activity. [place] assists only prior to or following the activity. 4-Supervision or Touching Assistance-helper provides verbal cues and/or touching/steadying and/or contact guard assistance as patient completes activity. Assistance may be provided throughout the activity or intermittently. 3-Partial/Moderate Assistance-helper does LESS THAN HALF the effort. [place] lifts, holds or supports trunk or limbs, but provides less than half the effort. 2-Substantial/Maximal Assistance-helper does MORE THAN HALF the effort. [place] lifts or holds trunk or limbs and provides more than half the effort. 6-Uhvbwxphx-okcrdz does ALL the effort. Patient does none of the effort to complete the activity. Or, the assistance of 2 or more helpers is required for the patient to complete the activity. If activity was not attempted, code reason: 7-Patient Refused. 9-Not Applicable-not attempted and the patient did not perform the activity before the current illness, exacerbation or injury. 10-Not Attempted due to Environmental Limitations-(lack of equipment, weather restraints, etc.). 88-Not Attempted due to Medical Conditions or Safety Concerns. Roll Left & Right (QC): 6 Sit to Lying (QC): 3 Lying to Sitting/Side of Bed(Q: 4 Sit to Stand (QC): 4 Chair/Jbz-ih-Sbjsh Xfer(QC): 4 SBA for transfers Weight Bearing Full Weight Bearing Full Weight Bearing back precautions Gait Training Distance: 150'x3 Walk 10 feet (QC): 4 Walk 50 ft with 2 Turns(QC): 4 Walk 150 ft (QC): 4 Gait Persons Needed: 1 Gait Assistive Device: FWW SBA, slow but steady ambulation Exercises NuStep Minutes: 10 NuStep Workload: 4 Treatments bed mobility and transfers, ambulation, functional strengthening Assessment Current Status: Fair Progress improving functional mobility PT Short Term Goals Short Term Goals Time Frame: May 16, 2021 Roll Left & Right: 4 (SBA) Sit to lyin (SA) Lying to sitting on side of be: 4 (SBA) Sit to stand: 4 (SBA) Chair/cnl-sp-huiet transfer: 4 (SBA) Walk 10 feet: 4 (SBA) Walk 50 feet with two turns: 4 (SBA) Walk 150 feet: 4 (SBA) PT Retirement Goals Retirement Goals PT Vice President Payer Goals Time Frame: May 30, 2021 Roll Left & Right (QC): 6 Sit to Lying (QC): 6 Lying-Sitting on Side/Bed(QC): 6 Sit to Stand (QC): 6 Chair/Urj-do-Oatic Xfer(QC): 6 Toilet Transfer (QC): 6 Car Transfer (QC): 6 Does the Patient Walk: Yes Walk 10 feet (QC): 6 Walk 50ft with 2 Turns (QC): 6 Walk 150 ft (QC): 6 Walking 10ft on Uneven Surface: 6 1 Step (curb) (QC): 4 (SBA) 4 Steps (QC): 4 (SBA) 12 Steps (QC): 88 Picking up an Object (QC): 6 Wheel 50 feet with 2 turns (QC: 9 Wheel 150 feet: 9 PT Plan Problem List Problem List: Activity Tolerance, Functional Strength, Safety, Balance, Gait, Transfer, Bed Mobility, ROM Treatment/Plan Treatment Plan: Continue Plan of Care Treatment Plan: Bed Mobility, Education, Functional Activity [place], Functional Strength, Group Therapy, Gait, Safety, Therapeutic Exercise, Transfers Treatment Duration: May 30, 2021 Frequency: At least 5 of 7 days/Wk (IRF) Estimated Hrs Per Day: 1.5 hours per day Patient and/or Family Agrees t: Yes Safety Risks/Education Patient Education: Gait Training, Transfer Techniques, Correct Positioning, Reviewed Don/Doff Brace, Safety Issues Teaching Recipient: Patient Teaching Methods: Demonstration, Discussion Response to Teaching: Reinforcement Needed Time/GCodes Time In: 1400 Time Out: 1430 Total Billed Treatment Time: 30 Total Billed Treatment 1 visit EX 10' FA 20' GILDARDO GUERRA PT May 13, 2021 14:34
[2021-05-13] MEDS: metFORMIN 500 MG (GLUCOPHAGE) TAB PO SCH (17:55)
[2021-05-13 20:00] VITALS: BP 106/59
[2021-05-13] MEDS: FLUTICASONE NASAL SPRAY (FLONASE) 16 GM BTL NS SCH (20:42)
[2021-05-14] MEDS: BETHANECHOL 25 MG (URECHOLINE) TAB PO SCH ×4 (05:47→20:45)
[2021-05-14] MEDS: CATHETER FLUSH 10 ML SYR IV SCH ×3 (05:47→20:45)
[2021-05-14] MEDS: BACLOFEN 10 MG (LIORESAL) TAB PO PRN ×2 (05:47→21:20)
[2021-05-14] MEDS: PRESERVISION AREDS SOFTGEL (BAUSH & LOMB) PO SCH (06:07)
[2021-05-14] MEDS: LINACLOTIDE 290 MCG (LINZESS) CAPSULE PO SCH (06:08)
[2021-05-14] MEDS: CYANOCOBALAMIN 1,000 MCG (VITAMIN B-12) TABLET PO SCH (06:08)
--- NOTE | 2021-05-14 07:17 | PM&R Progress Note ---
Subjective HPI/CC On Admission Date Seen by Provider: May 14, 2021 Time Seen by Provider: 12:45 Subjective/Events-last exam 05/14/2021: Pt is doing a lot better Had a large loose stool Wound vac will not be placed Dr. Jamison did probe the area of drainage and found it to probe all the way down to the hardware Rory Mckay and Dr. Boston were updated Cardiology was consulted for lower extremity edema He received a third iron infusion today 05/13/2021: Pt is doing okay Took his Linzess today for constipation Wound culture pending but later in the day and showed staph aureus and I reached out to Dr. BOSTON and he recommends wound VAC and may need a washout on Wednesday Rocephin maintained PICC line functioning well Baclofen helped with the pain 05/12/21: Pt is having a lot of pain Added Baclofen Plavix may be discontinued due to hemoglobin Dr. Farias has evaluated him Changed Zosyn and Vancomycin to Rocephin due to MSSA on culture at [facility] and blood cultures Dr. BOSTON request a wound culture on the wound drainage 05/11/2021: Patient doing really well Increased pain medication has helped Iron infusion and B12 supplement given Having urinary retention so started meds and performed in and out cath Check meds labs 05/10/2021: Patient doing really well Pain is an issue so I will change his hydrocodone to the 10/325 since he does have tolerance for that Awaiting iron level and B12 level suspect both low We'll discontinue catheter today and he is in agreement with that Checked meds and labs Appreciate Dr. Farias Review of Systems General: Fatigue Musculoskeletal: back pain Objective Exam Vital Signs Vital Signs Date Time Temp Pulse Resp B/P (MAP) Pulse Ox O2 Delivery O2 Flow Rate FiO2 05/14/21 21:15 Room Air 05/14/21 20:25 36.4 108 16 106/56 (73) 99 Capillary Refill : General Appearance: No Apparent Distress, WD/WN, Chronically ill HEENT: PERRL/EOMI, Normal ENT Inspection, Pharynx Normal Neck: Full Range of Motion, Normal Inspection, Non Tender, Supple, Carotid Bruit Respiratory: Chest Non Tender, Lungs Clear, Normal Breath Sounds, No Accessory Muscle Use, No Respiratory Distress Cardiovascular: No Edema, No Gallop, No JVD, No Murmur, Normal Peripheral Pulses, Irregularly Irregular Gastrointestinal: Normal Bowel Sounds, No Organomegaly, No Pulsatile Mass, Non Tender, Soft Back: CVA Tenderness (L), CVA Tenderness (R), Decreased Range of Motion, Vertebral Tenderness Extremity: Normal Capillary Refill, Normal Inspection, Normal Range of Motion, Non Tender, No Calf Tenderness, No Pedal Edema Neurologic/Psychiatric: Alert, Oriented x3, No Motor/Sensory Deficits, Normal Mood/Affect, education diagnostician II-XII Norm as Tested, Abnormal Gait, Motor Weakness (Generalized and legs 3/5) Skin: Normal Color, Warm/Dry Lymphatic: No Adenopathy Results/Procedures Lab Patient resulted labs reviewed. FIM Transfers Therapy Code Descriptions/Definitions Functional [place] Measure: 0=Not Assessed/NA 4=Minimal Assistance 1=Total Assistance 5=Supervision or Setup 2=Maximal Assistance 6=Modified [place] 3=Moderate Assistance 7=Complete IndependenceSCALE: Activities may be completed with or without assistive devices. 0-Kflpbqknec-sikrnhv completes the activity by him/herself with no assistance from a helper. 5-Set-up or Clean-up Assistance-helper sets up or cleans up; patient completes activity. [place] assists only prior to or following the activity. 4-Supervision or Touching Assistance-helper provides verbal cues and/or touching/steadying and/or contact guard assistance as patient completes activity. Assistance may be provided throughout the activity or intermittently. 3-Partial/Moderate Assistance-helper does LESS THAN HALF the effort. [place] lifts, holds or supports trunk or limbs, but provides less than half the effort. 2-Substantial/Maximal Assistance-helper does MORE THAN HALF the effort. [place] lifts or holds trunk or limbs and provides more than half the effort. 6-Wbqhelzkd-azxesk does ALL the effort. Patient does none of the effort to co mplete the activity. Or, the assistance of 2 or more helpers is required for the patient to complete the activity. If activity was not attempted, code reason: 7-Patient Refused. 9-Not Applicable-not attempted and the patient did not perform the activity before the current illness, exacerbation or injury. 10-Not Attempted due to Environmental Limitations-(lack of equipment, weather restraints, etc.). 88-Not Attempted due to Medical Conditions or Safety Concerns. Roll Left to Right (QC): 6 Sit to Lying (QC): 3 Sit to Stand (QC): 4 Chair/Frc-fp-Evcwa Xfer(QC): 4 Car Transfer (QC): 4 Gait Training Does the Patient Walk?: Yes Distance: 150'x3 Walk 10 feet (QC): 4 Walk 50 ft with 2 Turns(QC): 4 Walk 150 ft (QC): 4 Walking 10ft/uneven surface-QC: 4 Gait Persons Needed: 1 Gait Assistive Device: FWW Wheelchair Training Does the Pt Use a Wheelchair?: No Wheel 50 ft with 2 turns (QC): 9 Wheel 150 ft (QC): 9 Stair Training #of Steps: 1 1 Step (curb) (QC): 4 4 Steps (QC): 88 12 Steps (QC): 88 Balance Picking up an Object (QC): 4 (CGA using account manager education) ADL-Treatment Eating (QC): 5 Oral Hygiene (QC): 4 (pt reports he only rinses dentures. Able to perform standing at sink with CGA) Shower/Bathe Self (QC): 4 Upper Body Dressing (QC): 4 Lower Body Dressing (QC): 3 On/Off Footwear (QC): 2 Toileting Hygiene (QC): 4 Toilet Transfer (QC): 4 Assessment/Plan Assessment and Plan Assess & Plan/Chief Complaint Assessment: Lumbar spine surgery with slow recovery and failure at home due to spondylosis with myelopathy Aspiration pneumonia status post on Zosyn and Vanco for 6 days discontinued 05/11/2021 due to MSSA on blood cultures Postoperative anemia received 2 units of blood 2 weeks ago receiving iron infusions and B12 supplement Atrial fibrillation with variation in rate consulting cardiology CAD previous stents maintained on Plavix Hypertension Hyperlipidemia Li cath in place discontinued 05/10/2021 now having retention on 05/11/2021 so started on Urecholine and Flomax and performing in and out caths Bacteremia with gram-positive cocci PICC line was placed 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 BOSTON on Wednesday Plan: Pain control Li cath will be discontinued soon PICC line IV antibiotics Aggressive rehab 05/10/2021: IV antibiotics DC catheter Appreciate Dr. Farias Increase pain medication 05/11/2021: IV antibiotics Urinary retention management 05/12/2021: Wound culture per Dr. Boston Maintain Rocephin May need I&D of the wound 05/13/2021: Maintain Rocephin Baclofen helpful Wound VAC may be needed 05/14/2021: Wound VAC not an option Appreciate Dr. Jamison Await plan per Dr. Boston Change Rocephin to twice a day (1) Spondylosis of lumbar spine with myelopathy DIANE DAMIAN DO May 14, 2021 07:17
[2021-05-14 08:00] VITALS: BP 107/68
[2021-05-14] MEDS: PANTOPRAZOLE 40 MG (PROTONIX) TAB PO SCH (09:08)
[2021-05-14] MEDS: APIXABAN 5 MG (ELIQUIS) TABLET PO SCH ×2 (09:08→20:45)
[2021-05-14] MEDS: TAMSULOSIN 0.4 MG (FLOMAX) CAP PO SCH ×2 (09:08→17:51)
[2021-05-14] MEDS: meTOproloL SUCCINATE 50 MG (TOPROL XL) TAB PO SCH ×2 (09:08→20:45)
[2021-05-14] MEDS: SPIRONOLACTONE 25 MG (ALDACTONE) TAB PO SCH (09:08)
[2021-05-14] MEDS: KCL 10 MEQ TAB (MICRO K) PO SCH ×2 (09:08→17:51)
[2021-05-14] MEDS: FUROSEMIDE 40 MG (LASIX) TAB PO SCH (09:08)
[2021-05-14] MEDS: CLOPIDOGREL 75 MG (PLAVIX) TABLET PO SCH (09:09)
[2021-05-14] MEDS: IRON SUCROSE 200 MG/10 ML (VENOFER) VIAL IV SCH (09:10)
[2021-05-14] MEDS: DOCUSATE SODIUM 100 MG (COLACE) CAP PO SCH ×2 (09:14→21:20)
[2021-05-14] MEDS: polyethylene glycoL POWDER 17 GM (MIRALAX) PACK PO SCH ×2 (09:15→21:20)
[2021-05-14] MEDS: SENNA W/DOCUSATE (SENOKOT S) TABLET PO SCH ×2 (09:15→21:20)
--- NOTE | 2021-05-14 09:54 | Cardiology Progress Note ---
Subjective Date Seen by Provider: May 14, 2021 Time Seen by Provider: 09:53 Subjective/Events-last exam Patient with PT, no new complaints. Denies any chest pain or palpitations Review of Systems General: No Chills, No Night Sweats; Fatigue; No Malaise, No Appetite, No Other HEENT: No Head Aches, No Visual Changes, No Eye Pain, No Ear Pain, No Dysphasia, No Sinus Congestion, No Post Nasal Drip, No Sore Throat, No Other Pulmonary: No Dyspnea, No Cough, No Pleuritic Chest Pain, No Other Cardiovascular: Edema; No: Chest Pain, Palpitations, Orthopnea, Paroxysmal Noc. Dyspnea, Lt Headedness, Other Objective-Cardiology Exam Last Set of Vital Signs Vital Signs 05/14/21 05/14/21 08:00 09:56 Temp 36.2 Pulse 65 Resp 16 B/P (MAP) 107/68 (81) Pulse Ox 96 O2 Delivery Room Air I&O Intake and Output 05/14/21 00:00 Intake Total 1230 ml Output Total 1750 ml Balance -520 ml Intake Oral 1230 ml Output Urine Total 1750 ml General: Alert, Oriented X3, Cooperative HEENT: Atraumatic, PERRLA Neck: Supple, No JVD, No Thyromegaly Lungs: Clear to Auscultation, Normal Air Movement Heart: Regular Rate, Normal S1, Normal S2, No Murmurs Abdomen: Normal Bowel Sounds, Soft, No Tenderness, No Hepatosplenomegaly, No Masses Extremities: No Clubbing, No Cyanosis, Normal Pulses, No Tenderness/Swelling, Other (Mild pedal edema) Skin: No Rashes, No Breakdown, No Significant Lesion Neuro: Normal Speech, Normal Tone, Sensation Intact Psych/Mental Status: Mental Status NL, Mood NL A/P-Cardiology Admission Diagnosis Atrial fibrillation Coronary artery disease Hypertension Anemia Assessment/Plan Atrial fibrillation with controlled ventricular rate, maintained on Cardizem CD 300 mg daily and Toprol-XL 50 mg twice daily. Having few episodes of borderline tachycardia, continue on current medications and monitor 2D echo was done on May 12, 2021 showing normal LV size with EF 50 to 55%, biatrial enlargement, PA pressure 60 to 65 mmHg, aortic valve sclerosis. Pedal edema, chronic, using compression socks, maintained on Lasix 40 mg daily and Aldactone. Continue on current medication and monitor [id number] score 4, yearly risk of stroke without oral anticoagulation is 4%, maintained on Eliquis. Anemia, monitor H&H. Coronary artery disease, history of CABG x3 done in 2013, reported that he had 2 stents placed in 2018. He is currently asymptomatic. Maintained on Plavix. Continue to monitor Lumbar spine surgery on April 21, 2021, slow recovery, having myelopathy and spondylosis and generalized weakness and back pain. Aspiration pneumonia, receiving Zosyn and vancomycin Postoperative anemia, managed by medical team, monitor H&H Hypertension, continue to monitor blood pressure Hyperlipidemia, monitor lipids Bacteremia, gram-positive cocci. PICC line was placed. 2D Echo done showed no evidence of vegetation. Supervisory-Addendum Brief Supervisory Addendum Participated in pt care: history, MDM, physical Personally performed: exam, history, MDM Care discussed with: XAVIER Results interpretation: Verified all documentation Notes: Patient was seen and evaluated with Perez, examination performed, management plan was discussed, agree with the current scribed note, I made few changes to the note using Italic font Patient was sitting in a chair, feeling better. No new complaint Having pedal edema, we discussed his management, has been on diuretics Heart rate is controlled, continue to monitor PEREZ MONTIEL May 14, 2021 09:54 LAQUITA JAMIL MD May 14, 2021 13:49
[2021-05-14] MEDS: cefTRIAXone 1 GM PRE-MIX 50 ML IV SCH ×2 (10:06→20:42)
--- NOTE | 2021-05-14 11:20 | Physical Therapy Daily Note ---
PT Daily Note-Current Subjective Pt sitting in recliner upon arrival. Pt agrees to PT. Sp arrives during tx. Pain Numeric Pain Scale: 6 Location: Incisional, Lower Location Body Site: Back Pain Description: Ache Comment: Pain increases w/movement but is being managed by pain med. Mental Status Patient Orientation: Person, Place, Time, Situation Attachments: Other-See Comments (Back Brace) Transfers SCALE: Activities may be completed with or without assistive devices. 2-Kmwcjyluhl-nqynndv completes the activity by him/herself with no assistance from a helper. 5-Set-up or Clean-up Assistance-helper sets up or cleans up; patient completes activity. [place] assists only prior to or following the activity. 4-Supervision or Touching Assistance-helper provides verbal cues and/or touching/steadying and/or contact guard assistance as patient completes activity. Assistance may be provided throughout the activity or intermittently. 3-Partial/Moderate Assistance-helper does LESS THAN HALF the effort. [place] lifts, holds or supports trunk or limbs, but provides less than half the effort. 2-Substantial/Maximal Assistance-helper does MORE THAN HALF the effort. [place] lifts or holds trunk or limbs and provides more than half the effort. 9-Gdgvpdekp-kewswm does ALL the effort. Patient does none of the effort to complete the activity. Or, the assistance of 2 or more helpers is required for the patient to complete the activity. If activity was not attempted, code reason: 7-Patient Refused. 9-Not Applicable-not attempted and the patient did not perform the activity before the current illness, exacerbation or injury. 10-Not Attempted due to Environmental Limitations-(lack of equipment, weather restraints, etc.). 88-Not Attempted due to Medical Conditions or Safety Concerns. Sit to Stand (QC): 5 Toilet Transfer (QC): 4 Weight Bearing Full Weight Bearing Full Weight Bearing back precautions Gait Training Does the Patient Walk?: Yes Distance: 150' x2 Walk 10 feet (QC): 6 Walk 50 ft with 2 Turns(QC): 5 Walk 150 ft (QC): 5 Gait Persons Needed: 1 Gait Assistive Device: FWW Exercises Seated Therapy Exercises: Ankle pumps, Long arc quads, Hip flexion, Hip abd/add, Glut set Seated Reps: 15 NuStep Minutes: 15 NuStep Workload: 4 Treatments TF to standing and declines need for BR. Pt amb. in hallway then uses NuStep for 15m at WL 4. After short RB, pt amb. in hallway and returns to room to use BR. Pt returns to recliner to rest. Pt & Sp asking COVER CUTTER MACHINE about earlier d/c than what SW had advised. COVER CUTTER MACHINE, pt & Sp discuss why pt might have medical needs even though pt has improved with Therapy. Pt given morning meds by Nurse and pt is positioned to comfort. All needs met, call light in hand. Assessment Current Status: Good Progress Pt is [place] so sometimes requires repeated instruction. Pt has improved with strength and independence of tasks. Pt wanting to d/c GRI[place] but some medical limitations may postpone d/c. PT Short Term Goals Short Term Goals Time Frame: May 16, 2021 Roll Left & Right: 4 (SBA) Sit to lyin (SA) Lying to sitting on side of be: 4 (SBA) Sit to stand: 4 (SBA) Chair/rfd-hp-hpxns transfer: 4 (SBA) Walk 10 feet: 4 (SBA) Walk 50 feet with two turns: 4 (SBA) Walk 150 feet: 4 (SBA) PT Data Modeler Goals Data Modeler Goals PT Data Modeler Goals Time Frame: May 30, 2021 Roll Left & Right (QC): 6 Sit to Lying (QC): 6 Lying-Sitting on Side/Bed(QC): 6 Sit to Stand (QC): 6 Chair/Hfr-gr-Czzvi Xfer(QC): 6 Toilet Transfer (QC): 6 Car Transfer (QC): 6 Does the Patient Walk: Yes Walk 10 feet (QC): 6 Walk 50ft with 2 Turns (QC): 6 Walk 150 ft (QC): 6 Walking 10ft on Uneven Surface: 6 1 Step (curb) (QC): 4 (SBA) 4 Steps (QC): 4 (SBA) 12 Steps (QC): 88 Picking up an Object (QC): 6 Wheel 50 feet with 2 turns (QC: 9 Wheel 150 feet: 9 PT Plan Problem List Problem List: Activity Tolerance Treatment/Plan Treatment Plan: Continue Plan of Care Treatment Plan: Bed Mobility, Education, Functional Activity [place], Functional Strength, Group Therapy, Gait, Safety, Therapeutic Exercise, Transfers Treatment Duration: May 30, 2021 Frequency: At least 5 of 7 days/Wk (IRF) Estimated Hrs Per Day: 1.5 hours per day Patient and/or Family Agrees t: Yes Time/GCodes Time In: 800 Time Out: 930 Total Billed Treatment Time: 90 Total Billed Treatment 1, EX x3 (50m) & FA x3 (40m) CARMELO SAM COVER CUTTER MACHINE May 14, 2021 11:20
--- NOTE | 2021-05-14 11:34 | Occupational Ther Daily Note ---
OT Current Status-Daily Note Subjective Pt denies pain, looking forward to shower. Appearance Pt left sitting in recliner, all needs within reach, in the room. Mental Status/Objective Attachments: IV ADL-Treatment Therapy Code Descriptions/Definitions Functional [place] Measure: 0=Not Assessed/NA 4=Minimal Assistance 1=Total Assistance 5=Supervision or Setup 2=Maximal Assistance 6=Modified [place] 3=Moderate Assistance 7=Complete IndependenceSCALE: Activities may be completed with or without assistive devices. 1-Immrrxybyz-xpcqsnz completes the activity by him/herself with no assistance from a helper. 5-Set-up or Clean-up Assistance-helper sets up or cleans up; patient completes activity. [place] assists only prior to or following the activity. 4-Supervision or Touching Assistance-helper provides verbal cues and/or touching/steadying and/or contact guard assistance as patient completes activity. Assistance may be provided throughout the activity or intermittently. 3-Partial/Moderate Assistance-helper does LESS THAN HALF the effort. [place] lifts, holds or supports trunk or limbs, but provides less than half the effort. 2-Substantial/Maximal Assistance-helper does MORE THAN HALF the effort. [place] lifts or holds trunk or limbs and provides more than half the effort. 1-Fgblihrhc-eiqngg does ALL the effort. Patient does none of the effort to complete the activity. Or, the assistance of 2 or more helpers is required for the patient to complete the activity. If activity was not attempted, code reason: 7-Patient Refused. 9-Not Applicable-not attempted and the patient did not perform the activity before the current illness, exacerbation or injury. 10-Not Attempted due to Environmental Limitations-(lack of equipment, weather restraints, etc.). 88-Not Attempted due to Medical Conditions or Safety Concerns. Eating (QC): 6 Shower/Bathe Self (QC): 5 Upper Body Dressing (QC): 5 Lower Body Dressing (QC): 3 On/Off Footwear: 1 Toileting Hygiene (QC): 6 Toilet Transfer (QC): 4 Shower performed; 100% completed in sitting. OT instructed pt on lateral pelvic leans in order to wash backside. Reminder cue on using LHS to wash below knees in order to adhere to spinal precautions. Post cue, pt able to complete without assist. Pt continues to need Reminder cues on preferred lpc use when threading feet into LB clothing. Assist still needed to thread R foot. reports that she will continue to assist with threading feet until spinal preacutions have been lifted. They are not interested in purchasing adaptive equipment. Pt was able to stand and manage clothing over waist without assist. Dependent to don conrad hose and socks but spouse states that she will assist post d/c. Pt sat on toilet x3 this session due to difficulty voiding. Successful on last attempt. Pt does get SOB with exertion and need short breaks throughout adls. Other Treatment While seated, pt participated in UE exercises with 2# dowel cecy. Improved tolerance notable this date. Pt also able to perform shoulder exercises through full range, but does exhibit fatigue after ~7 reps. Weight removed for all exercises above 90 degrees. 12 x2 all planes. Min cues for improved technique. Education OT Patient Education: Correct positioning, Energy conservation, Exercise progr am, Modified ADL techniques, Progress toward Goal/Update tx plan, Purpose of tx/functional activities, Reviewed precautions, Safety issues, Transfer techniques, Use of adapted equipment Teaching Recipient: Patient, Family Teaching Methods: Demonstration, Discussion Response to Teaching: Verbalize Understanding, Return Demonstration, Reinforcement Needed OT Short Term Goals Short Term Goals Time Frame: May 16, 2021 Eatin Oral hygiene: 6 Toileting hygiene: 5 Shower/bathe self: 4 Upper body dressin Lower body dressin Putting on/taking off footwear: 3 OT Litigator Goals Alf Goals Time Frame: May 23, 2021 Eating (QC): 6 Oral Hygiene (QC): 6 Toileting Hygiene (QC): 6 Shower/Bathe Self (QC): 5 Upper Body Dressing (QC): 6 Lower Body Dressing (QC): 6 On/Off Footwear (QC): 5 1=Demonstrate adherence to instructed precautions during ADL tasks. 2=Patient will verbalize/demonstrate understanding of assistive devices/modifications for ADL. 3=Patient will improve strength/tolerance for activity to enable patient to perform ADL's. OT Education/Plan Problem List/Assessment Assessment: Decreased Activ Tolerance, Decreased UE Strength, Impaired Funct Balance, Impaired Self-Care Skills Discharge Recommendations Plan/Recommendations: Continue POC Equpiment Recommendations-D/C: Other, See Comments (LHS) Treatment Plan/Plan of Care Treatment,Training & Education: Yes Patient would benefit from OT for education, treatment and training to promote independence in ADL's, mobility, safety and/or upper extremity function for ADL's. Plan of Care: ADL Retraining, Functional Mobility, Group Exercise/Act as Ind, UE Funct Exercise/Act Treatment Duration: May 23, 2021 Frequency: At least 5 of 7 days/Wk (IRF) Estimated Hrs Per Day: 1.5 hours per day Agreement: Yes Rehab Potential: Good Time/GCodes Start Time: 10:00 Stop Time: 11:30 Total Time Billed (hr/min): 90 Billed Treatment Time 1 visit ADL x4 (60 min) EX x2 (30 min) Simona Paul OT May 14, 2021 11:34
--- NOTE | 2021-05-14 15:04 | Wound Care Assessment ---
Wound Care Assessment Date Seen by Provider: May 14, 2021 Time Seen by Provider: 11:45 Chief Complaint Lumbar surgical wound HPI This pleasant 76 year old gentleman was admitted for inpatient rehab following recent lumbar surgery per Dr. Boston. He does have hardware in place and an area of serous drainage that has been on and off since surgery on 04-21-21. He does have a recent h/o MSSA bacteremia as well and did have episode of aspiration pneumonia per history also. He was previously on Vancomycin and Zosyn. Upon admission wound culture was obtained which was also positive for MSSA. He is now on Rocephin (preliminary cultures are sensative). Mr. De La Cruz has an extensive medical history including a myeloid condition with resulting pancytopenia which is present during this stay as well. His reports that he had surgery in past per Dr. 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 He developed spinal stenosis subsequently and most recently had lumbar procedure per Dr. Boston at [place]. Mr. De La Cruz does also have a cardiac history (Dr. Farias has consulted) including h/o CABG and atrial fibrillation. On labs he also has evidence of protein energy malnutrition with albumin of 2.5. On exam today, Mr. De La Cruz is noted to have an extensive spinal scar. At the inferior portion of the lumbar segment he does have a very small open area (pin point) that tunnels at least 3.8 cm (I suspect to bone but cannot confirm at this depth). There is copious serous drainage noted. It is difficult to assess if there is a wider wound cavity underlying the superficial tunnel. Mr. De La Cruz appears medically stable currently and did not describe discomfort with my exam. 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, protein energy malnutrition, atrial fibrillation (rate controlled), COPD Smoking Status: Former Smoker Alcohol Use: Denies Use Review of Systems General: Fatigue Musculoskeletal: back pain Neurological: Weakness (generalized) Exam Vital Signs Date Time Temp Pulse Resp B/P (MAP) Pulse Ox O2 Delivery O2 Flow Rate FiO2 05/14/21 09:56 Room Air 05/14/21 08:00 36.2 65 16 107/68 (81) 96 Capillary Refill : General Appearance: WD/WN, no apparent distress Neck: full range of motion Respiratory: no accessory muscle use Extremities: normal range of motion Neurologic/Psychiatric: alert, normal mood/affect, oriented x 3 Skin: normal color, warm/dry Skin Problem Location: torso Wound assessment: Pinpoint area of opening tunneling 3.8 cm. The epithelialization is none, there is copious serous drainage, granulation and necrotic tissue are not visible, margins are flat. Results Microbiology 05/12/21 Gram Stain - Final, Resulted 05/12/21 Wound Culture - Preliminary, Resulted Staphylococcus aureus Microbiology 05/12/21 Gram Stain - Final, Resulted 05/12/21 Wound Culture - Preliminary, Resulted Staphylococcus aureus Assessment/Plan/Dx Assessment: 1. Post surgical dehiscence 2. 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 DM2-well controlled 4. Protein energy malnutrition 5. Pancytopenia Plan: 1. I have discussed Mr. De La Cruz's case with Dr. Boston's staff and Dr. Dooley. I am concerned with the positive wound culture (MSSA) and the depth of this tunnel that there is infected hardware in place. He did have MSSA bacteremia in recent past as well (also concerning with underlying hardware). Will defer surgical decisions to Dr. Boston's capable hands 2. Continue IV Rocephin (appropriate with recent cultures) 3. Iodoform gauze packing to tunnel twice daily with ABD pad. Cleanse with saline or wound cleanser. 4. Glucerna protein shakes tid with meals 5. Continue with good glycemic control 6. If as suspected and with patient's underlying pancytopenia, protein energy malnutrition, and diabetes, the healing process will be quite difficult. Please do not hesitate to call on us (either inpatient or outpatient) after definitive surgical plan in place should further wound care assistance be necessary. I will follow along as long as Mr. De La Cruz remains in our facility SUKUMAR JOHNSON MD May 14, 2021 15:04
[2021-05-14] MEDS: metFORMIN 500 MG (GLUCOPHAGE) TAB PO SCH (17:51)
[2021-05-14 20:25] VITALS: BP 106/56
[2021-05-14] MEDS: FLUTICASONE NASAL SPRAY (FLONASE) 16 GM BTL NS SCH (20:46)
[2021-05-15] MEDS: BACLOFEN 10 MG (LIORESAL) TAB PO PRN ×2 (06:02→21:09)
[2021-05-15] MEDS: CATHETER FLUSH 10 ML SYR IV SCH ×3 (06:02→21:10)
[2021-05-15] MEDS: PRESERVISION AREDS SOFTGEL (BAUSH & LOMB) PO SCH (06:02)
[2021-05-15] MEDS: BETHANECHOL 25 MG (URECHOLINE) TAB PO SCH ×4 (06:02→21:09)
[2021-05-15] MEDS: CYANOCOBALAMIN 1,000 MCG (VITAMIN B-12) TABLET PO SCH (06:02)
[2021-05-15] MEDS: LINACLOTIDE 290 MCG (LINZESS) CAPSULE PO SCH (06:03)
--- NOTE | 2021-05-15 07:24 | PM&R Progress Note ---
Subjective HPI/CC On Admission Date Seen by Provider: May 15, 2021 Time Seen by Provider: 12:15 Subjective/Events-last exam 05/15/2021: Patient doing well Pain is still an issue but baclofen is helped Rocephin 1 g twice daily Sleeping currently Checked meds and labs Bowels are moving Reviewed wound culture 05/14/2021: Pt is doing a lot better Had a large loose stool Wound vac will not be placed Dr. Jamison did probe the area of drainage and found it to probe all the way down to the hardware Rory Mckay and Dr. Boston were updated Cardiology was consulted for lower extremity edema He received a third iron infusion today 05/13/2021: Pt is doing okay Took his Linzess today for constipation Wound culture pending but later in the day and showed staph aureus and I reached out to Dr. BOSTON and he recommends wound VAC and may need a washout on Wednesday Rocephin maintained PICC line functioning well Baclofen helped with the pain 05/12/21: Pt is having a lot of pain Added Baclofen Plavix may be discontinued due to hemoglobin Dr. Farias has evaluated him Changed Zosyn and Vancomycin to Rocephin due to MSSA on culture at [facility] and blood cultures Dr. BOSTON request a wound culture on the wound drainage 05/11/2021: Patient doing really well Increased pain medication has helped Iron infusion and B12 supplement given Having urinary retention so started meds and performed in and out cath Check meds labs 05/10/2021: Patient doing really well Pain is an issue so I will change his hydrocodone to the 10/325 since he does have tolerance for that Awaiting iron level and B12 level suspect both low We'll discontinue catheter today and he is in agreement with that Checked meds and labs Appreciate Dr. Farias Review of Systems General: Fatigue, Malaise Musculoskeletal: back pain Objective Exam Vital Signs Vital Signs Date Time Temp Pulse Resp B/P (MAP) Pulse Ox O2 Delivery O2 Flow Rate FiO2 05/15/21 21:15 Room Air 05/15/21 19:51 36.6 83 20 131/75 (93) 98 Capillary Refill : General Appearance: No Apparent Distress, WD/WN, Chronically ill HEENT: PERRL/EOMI, Normal ENT Inspection, Pharynx Normal Neck: Full Range of Motion, Normal Inspection, Non Tender, Supple, Carotid Bruit Respiratory: Chest Non Tender, Lungs Clear, Normal Breath Sounds, No Accessory Muscle Use, No Respiratory Distress Cardiovascular: No Edema, No Gallop, No JVD, No Murmur, Normal Peripheral Pulses, Irregularly Irregular Gastrointestinal: Normal Bowel Sounds, No Organomegaly, No Pulsatile Mass, Non Tender, Soft Back: CVA Tenderness (L), CVA Tenderness (R), Decreased Range of Motion, Verte bral Tenderness Extremity: Normal Capillary Refill, Normal Inspection, Normal Range of Motion, Non Tender, No Calf Tenderness, No Pedal Edema Neurologic/Psychiatric: Alert, Oriented x3, No Motor/Sensory Deficits, Normal Mood/Affect, apartment 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 FIM Transfers Therapy Code Descriptions/Definitions Functional [place] Measure: 0=Not Assessed/NA 4=Minimal Assistance 1=Total Assistance 5=Supervision or Setup 2=Maximal Assistance 6=Modified [place] 3=Moderate Assistance 7=Complete IndependenceSCALE: Activities may be completed with or without assistive devices. 7-Jqbqwazwgx-lntuevy completes the activity by him/herself with no assistance from a helper. 5-Set-up or Clean-up Assistance-helper sets up or cleans up; patient completes activity. [place] assists only prior to or following the activity. 4-Supervision or Touching Assistance-helper provides verbal cues and/or touching/steadying and/or contact guard assistance as patient completes activity. Assistance may be provided throughout the activity or intermittently. 3-Partial/Moderate Assistance-helper does LESS THAN HALF the effort. [place] lifts, holds or supports trunk or limbs, but provides less than half the effort. 2-Substantial/Maximal Assistance-helper does MORE THAN HALF the effort. [place] lifts or holds trunk or limbs and provides more than half the effort. 3-Rxxctbzhg-zgidwe does ALL the effort. Patient does none of the effort to complete the activity. Or, the assistance of 2 or more helpers is required for the patient to complete the activity. If activity was not attempted, code reason: 7-Patient Refused. 9-Not Applicable-not attempted and the patient did not perform the activity before the current illness, exacerbation or injury. 10-Not Attempted due to Environmental Limitations-(lack of equipment, weather restraints, etc.). 88-Not Attempted due to Medical Conditions or Safety Concerns. Roll Left to Right (QC): 6 Sit to Lying (QC): 3 Sit to Stand (QC): 5 Chair/Mwz-jy-Uwpor Xfer(QC): 4 Car Transfer (QC): 4 Gait Training Does the Patient Walk?: Yes Distance: 150' x2 Walk 10 feet (QC): 6 Walk 50 ft with 2 Turns(QC): 5 Walk 150 ft (QC): 5 Walking 10ft/uneven surface-QC: 4 Gait Persons Needed: 1 Gait Assistive Device: FWW Wheelchair Training Does the Pt Use a Wheelchair?: No Wheel 50 ft with 2 turns (QC): 9 Wheel 150 ft (QC): 9 Stair Training #of Steps: 1 1 Step (curb) (QC): 4 4 Steps (QC): 88 12 Steps (QC): 88 Balance Picking up an Object (QC): 4 (CGA using print production associate) ADL-Treatment Eating (QC): 6 Oral Hygiene (QC): 4 (pt reports he only rinses dentures. Able to perform standing at sink with CGA) Shower/Bathe Self (QC): 5 Upper Body Dressing (QC): 5 Lower Body Dressing (QC): 3 On/Off Footwear (QC): 1 Toileting Hygiene (QC): 6 Toilet Transfer (QC): 4 Assessment/Plan Assessment and Plan Assess & Plan/Chief Complaint Assessment: Lumbar spine surgery with slow recovery and failure at home due to spondylosis with myelopathy Aspiration pneumonia status post on Zosyn and Vanco for 6 days discontinued 05/11/2021 due to MSSA on blood cultures Postoperative anemia received 2 units of blood 2 weeks ago receiving iron infusions and B12 supplement Atrial fibrillation with variation in rate consulting cardiology CAD previous stents maintained on Plavix Hypertension Hyperlipidemia Li cath in place discontinued 05/10/2021 now having retention on 05/11/2021 so started on Urecholine and Flomax and performing in and out caths now doing well Bacteremia with gram-positive cocci PICC line was placed source is operative wound 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 BOSTON on Wednesday Plan: Pain control Li cath will be discontinued soon PICC line IV antibiotics Aggressive rehab 05/10/2021: IV antibiotics DC catheter Appreciate Dr. Farias Increase pain medication 05/11/2021: IV antibiotics Urinary retention management 05/12/2021: Wound culture per Dr. Boston Maintain Rocephin May need I&D of the wound 05/13/2021: Maintain Rocephin Baclofen helpful Wound VAC may be needed 05/14/2021: Wound VAC not an option Appreciate Dr. Jamison Await plan per Dr. Boston Change Rocephin to twice a day 05/15/2021: Supportive care Rocephin Continue therapy (1) Spondylosis of lumbar spine with myelopathy DIANE DAMIAN DO May 15, 2021 07:24
[2021-05-15 07:38] VITALS: BP 140/64
[2021-05-15] MEDS: meTOproloL SUCCINATE 50 MG (TOPROL XL) TAB PO SCH ×2 (08:00→21:09)
[2021-05-15] MEDS ORDERED: METOLAZONE 5 MG (ZAROXOLYN) TAB PO ONE (08:00)
[2021-05-15] MEDS: cefTRIAXone 1 GM PRE-MIX 50 ML IV SCH ×2 (08:00→21:09)
[2021-05-15] MEDS: KCL 10 MEQ TAB (MICRO K) PO SCH ×2 (08:01→17:42)
[2021-05-15] MEDS: FUROSEMIDE 40 MG (LASIX) TAB PO SCH (08:01)
[2021-05-15] MEDS: CLOPIDOGREL 75 MG (PLAVIX) TABLET PO SCH (08:01)
[2021-05-15] MEDS: APIXABAN 5 MG (ELIQUIS) TABLET PO SCH ×2 (08:01→21:09)
[2021-05-15] MEDS: SPIRONOLACTONE 25 MG (ALDACTONE) TAB PO SCH (08:01)
[2021-05-15] MEDS: TAMSULOSIN 0.4 MG (FLOMAX) CAP PO SCH ×2 (08:01→17:42)
[2021-05-15] MEDS: PANTOPRAZOLE 40 MG (PROTONIX) TAB PO SCH (08:01)
--- NOTE | 2021-05-15 08:02 | Cardiology Progress Note ---
Subjective Date Seen by Provider: May 15, 2021 Time Seen by Provider: 08:01 Subjective/Events-last exam Patient was seen at bedside, sitting in a chair, concerned about his worsening pedal edema Review of Systems General: No Chills, No Night Sweats; Fatigue; No Malaise, No Appetite, No Other HEENT: No Head Aches, No Visual Changes, No Eye Pain, No Ear Pain, No Dysphasia, No Sinus Congestion, No Post Nasal Drip, No Sore Throat, No Other Pulmonary: No Dyspnea, No Cough, No Pleuritic Chest Pain, No Other Cardiovascular: Edema; No: Chest Pain, Palpitations, Orthopnea, Paroxysmal Noc. Dyspnea, Lt Headedness, Other Objective-Cardiology Exam Last Set of Vital Signs Vital Signs 05/15/21 07:38 Temp 36.0 Pulse 89 Resp 18 B/P (MAP) 140/64 (89) Pulse Ox 95 O2 Delivery Room Air I&O Intake and Output 05/15/21 00:00 Intake Total 1320 ml Output Total 850 ml Balance 470 ml Intake Oral 1220 ml IV Total 100 ml Output Urine Total 850 ml Bladder Scan Volume Amount 214 ml 15 ml # Voids 9 # Bowel Movements 1 General: Alert, Oriented X3, Cooperative HEENT: Atraumatic, PERRLA Neck: Supple, No JVD, No Thyromegaly Lungs: Clear to Auscultation, Normal Air Movement Heart: Regular Rate, Normal S1, Normal S2, No Murmurs Abdomen: Normal Bowel Sounds, Soft, No Tenderness, No Hepatosplenomegaly, No Masses Extremities: No Clubbing, No Cyanosis, Normal Pulses, No Tenderness/Swelling, Other (Mild pedal edema) Skin: No Rashes, No Breakdown, No Significant Lesion Neuro: Normal Speech, Normal Tone, Sensation Intact Psych/Mental Status: Mental Status NL, Mood NL A/P-Cardiology Admission Diagnosis Atrial fibrillation Coronary artery disease Hypertension Anemia Assessment/Plan Atrial fibrillation with controlled ventricular rate, maintained on Cardizem CD 300 mg daily and Toprol-XL 50 mg twice daily. Having few episodes of borderline tachycardia, continue on current medications and monitor 2D echo was done on May 12, 2021 showing normal LV size with EF 50 to 55%, biatrial enlargement, PA pressure 60 to 65 mmHg, aortic valve sclerosis. Pedal edema, chronic, using compression socks, maintained on Lasix 40 mg daily and Aldactone. I will give him 1 dose of Zaroxolyn and evaluate tolerance and response [id number] score 4, yearly risk of stroke without oral anticoagulation is 4%, maintained on Eliquis. Anemia, monitor H&H. Coronary artery disease, history of CABG x3 done in 2012, reported that he had 2 stents placed in 2018. He is currently asymptomatic. Maintained on Plavix. Continue to monitor Lumbar spine surgery on April 21, 2021, slow recovery, having myelopathy and spondylosis and generalized weakness and back pain. Aspiration pneumonia, receiving Zosyn and vancomycin Postoperative anemia, managed by medical team, monitor H&H Hypertension, continue to monitor blood pressure Hyperlipidemia, monitor lipids Bacteremia, gram-positive cocci. PICC line was placed. 2D Echo done showed no evidence of vegetation. LAQUITA JAMIL MD May 15, 2021 08:02
[2021-05-15] MEDS: DOCUSATE SODIUM 100 MG (COLACE) CAP PO SCH ×2 (08:55→21:11)
[2021-05-15] MEDS: polyethylene glycoL POWDER 17 GM (MIRALAX) PACK PO SCH ×2 (08:55→21:11)
[2021-05-15] MEDS: SENNA W/DOCUSATE (SENOKOT S) TABLET PO SCH ×2 (08:55→21:12)
--- NOTE | 2021-05-15 09:06 | Physical Therapy Daily Note ---
PT Daily Note-Current Subjective Pt in BR upon arrival. Pt agrees to PT despite report of increased fatigue, pain at incision site & pt's report of increased swelling. HOGSHEAD WEIGHER advised reported to Nurse and will focus on keeping B LE elevated to assist in reducing swelling. Pt advises "I'm leaving Wednesday". HOGSHEAD WEIGHER advised pt to talk to Dr Dooley. Pain Numeric Pain Scale: 9 Location: Incisional Location Body Site: Back Pain Description: Ache Mental Status Patient Orientation: Person, Place, Time, Situation Attachments: Other-See Comments (Back Brace) Transfers SCALE: Activities may be completed with or without assistive devices. 5-Slfsjqxxtb-djygsxm completes the activity by him/herself with no assistance from a helper. 5-Set-up or Clean-up Assistance-helper sets up or cleans up; patient completes activity. [place] assists only prior to or following the activity. 4-Supervision or Touching Assistance-helper provides verbal cues and/or touching/steadying and/or contact guard assistance as patient completes activity. Assistance may be provided throughout the activity or intermittently. 3-Partial/Moderate Assistance-helper does LESS THAN HALF the effort. [place] lifts, holds or supports trunk or limbs, but provides less than half the effort. 2-Substantial/Maximal Assistance-helper does MORE THAN HALF the effort. [place] lifts or holds trunk or limbs and provides more than half the effort. 7-Vzapzbtre-bpfnzf does ALL the effort. Patient does none of the effort to complete the activity. Or, the assistance of 2 or more helpers is required for the patient to complete the activity. If activity was not attempted, code reason: 7-Patient Refused. 9-Not Applicable-not attempted and the patient did not perform the activity before the current illness, exacerbation or injury. 10-Not Attempted due to Environmental Limitations-(lack of equipment, weather restraints, etc.). 88-Not Attempted due to Medical Conditions or Safety Concerns. Sit to Stand (QC): 5 Toilet Transfer (QC): 5 Weight Bearing Full Weight Bearing Full Weight Bearing back precautions Gait Training Does the Patient Walk?: Yes Distance: 150' x2 Walk 10 feet (QC): 5 Walk 50 ft with 2 Turns(QC): 5 Walk 150 ft (QC): 5 Gait Persons Needed: 1 Gait Assistive Device: FWW Exercises NuStep Minutes: 7 NuStep Workload: 4 Treatments Pt finishes in BR, assistance w/pericare needed and amb. in hallway. Pt completes Seated EX then Pt uses NuStep for 7m at WL 4 before asking to return to BR to try again. Pt amb. in hallway and returns to room. Pt returns to recliner to rest. Pt is repositioned to comfort. Nurse arriving shortly to assess bandage. All needs met, call light in hand. Assessment Current Status: Good Progress Pt anh. tx well. Pt reports wanting to leave Wednesday. PT Short Term Goals Short Term Goals Time Frame: May 16, 2021 Roll Left & Right: 4 (SBA) Sit to lyin (SA) Lying to sitting on side of be: 4 (SBA) Sit to stand: 4 (SBA) Chair/vsw-ls-muylv transfer: 4 (SBA) Walk 10 feet: 4 (SBA) Walk 50 feet with two turns: 4 (SBA) Walk 150 feet: 4 (SBA) PT Nursing Home Goals Armored Car Guard Goals PT Armored Car Guard Goals Time Frame: May 30, 2021 Roll Left & Right (QC): 6 Sit to Lying (QC): 6 Lying-Sitting on Side/Bed(QC): 6 Sit to Stand (QC): 6 Chair/Snx-oj-Mxtsq Xfer(QC): 6 Toilet Transfer (QC): 6 Car Transfer (QC): 6 Does the Patient Walk: Yes Walk 10 feet (QC): 6 Walk 50ft with 2 Turns (QC): 6 Walk 150 ft (QC): 6 Walking 10ft on Uneven Surface: 6 1 Step (curb) (QC): 4 (SBA) 4 Steps (QC): 4 (SBA) 12 Steps (QC): 88 Picking up an Object (QC): 6 Wheel 50 feet with 2 turns (QC: 9 Wheel 150 feet: 9 PT Plan Problem List Problem List: Activity Tolerance Treatment/Plan Treatment Plan: Continue Plan of Care Treatment Plan: Bed Mobility, Education, Functional Activity [place], Functional Strength, Group Therapy, Gait, Safety, Therapeutic Exercise, Transfers Treatment Duration: May 30, 2021 Frequency: At least 5 of 7 days/Wk (IRF) Estimated Hrs Per Day: 1.5 hours per day Patient and/or Family Agrees t: Yes Safety Risks/Education Patient Education: Transfer Techniques, Correct Positioning, Safety Issues Teaching Recipient: Patient Teaching Methods: Discussion Response to Teaching: Verbalize Understanding Time/GCodes Time In: 800 Time Out: 900 Total Billed Treatment Time: 60 Total Billed Treatment 1, GT x2 (25m), FA (20m) & EX (15m) CARMELO SAM HOGSHEAD WEIGHER May 15, 2021 09:06
--- NOTE | 2021-05-15 11:02 | Occupational Ther Daily Note ---
OT Current Status-Daily Note Subjective Pt reports significant pain in back this date. Still agreeable to treatment. No complaints at end of session. Appearance Pt left supine in bed, all needs within reach. RN informed. Mental Status/Objective Attachments: IV ADL-Treatment Therapy Code Descriptions/Definitions Functional [place] Measure: 0=Not Assessed/NA 4=Minimal Assistance 1=Total Assistance 5=Supervision or Setup 2=Maximal Assistance 6=Modified [place] 3=Moderate Assistance 7=Complete IndependenceSCALE: Activities may be completed with or without assistive devices. 3-Emelesayuo-huxbutx completes the activity by him/herself with no assistance from a helper. 5-Set-up or Clean-up Assistance-helper sets up or cleans up; patient completes activity. [place] assists only prior to or following the activity. 4-Supervision or Touching Assistance-helper provides verbal cues and/or touching/steadying and/or contact guard assistance as patient completes activity. Assistance may be provided throughout the activity or intermittently. 3-Partial/Moderate Assistance-helper does LESS THAN HALF the effort. [place] lifts, holds or supports trunk or limbs, but provides less than half the effort. 2-Substantial/Maximal Assistance-helper does MORE THAN HALF the effort. [place] lifts or holds trunk or limbs and provides more than half the effort. 7-Lqkqxewnq-itzesd does ALL the effort. Patient does none of the effort to complete the activity. Or, the assistance of 2 or more helpers is required for the patient to complete the activity. If activity was not attempted, code reason: 7-Patient Refused. 9-Not Applicable-not attempted and the patient did not perform the activity before the current illness, exacerbation or injury. 10-Not Attempted due to Environmental Limitations-(lack of equipment, weather restraints, etc.). 88-Not Attempted due to Medical Conditions or Safety Concerns. Upper Body Dressing (QC): 5 Toileting Hygiene (QC): 6 Toilet Transfer (QC): 6 Pt sitting in recliner at OT arrival. He reports frustration with hospital stay and not receiving answers regarding medical care, becomes tearful. Therapeutic listening and emotional support provided. Pt able to don shirt and brace with set up only. He ambulated to tub room with use of walker and supervision. Tub transfer performed x5. Seated method x4 and standing x1. Due to right hip pain and LE edema, pt has significant difficulty lifting foot to step over tub. MIn- mod a required in standing. When performed in sitting method, pt able to complete without physical assistance. He does require use of UE's to lift R foot over side of tub but does not need assist. SOB notable with exertion and several short rest breaks needed throughout activity. Pt performed tub transfer (in/out) consecutively x2 with goal to promote increased endurance and strength needed for functional tasks, yet after bout, pt needs a very lengthy rest break and exhibits increased difficulty lifting R foot secondary to fatigue. Other Treatment Pt requested to walk. He was able to ambulate around entire unit x1 lap before needing to sit and rest. No LOB. Appears to tolerate well. Pt reports he enjoys walking and stretching out his R hip. Education OT Patient Education: Correct positioning, Energy conservation, Modified ADL techniques, Purpose of tx/functional activities, Rehab process, Safety issues, Transfer techniques Teaching Recipient: Patient Teaching Methods: Demonstration, Discussion Response to Teaching: Verbalize Understanding, Return Demonstration, Reinforcement Needed OT Short Term Goals Short Term Goals Time Frame: May 16, 2021 Eatin Oral hygiene: 6 Toileting hygiene: 5 Shower/bathe self: 4 Upper body dressin Lower body dressin Putting on/taking off footwear: 3 OT Residential Goals Breakfast Server Goals Time Frame: May 23, 2021 Eating (QC): 6 Oral Hygiene (QC): 6 Toileting Hygiene (QC): 6 Shower/Bathe Self (QC): 5 Upper Body Dressing (QC): 6 Lower Body Dressing (QC): 6 On/Off Footwear (QC): 5 1=Demonstrate adherence to instructed precautions during ADL tasks. 2=Patient will verbalize/demonstrate understanding of assistive devices/modifications for ADL. 3=Patient will improve strength/tolerance for activity to enable patient to perform ADL's. OT Education/Plan Problem List/Assessment Assessment: Decreased Activ Tolerance, Decreased UE Strength, Impaired Funct Balance, Impaired Self-Care Skills Discharge Recommendations Plan/Recommendations: Continue POC Treatment Plan/Plan of Care Treatment,Training & Education: Yes Patient would benefit from OT for education, treatment and training to promote independence in ADL's, mobility, safety and/or upper extremity function for ADL's. Plan of Care: ADL Retraining, Functional Mobility, Group Exercise/Act as Ind, UE Funct Exercise/Act Treatment Duration: May 23, 2021 Frequency: At least 5 of 7 days/Wk (IRF) Estimated Hrs Per Day: 1.5 hours per day Agreement: Yes Rehab Potential: Good Time/GCodes Start Time: 10:00 Stop Time: 11:00 Total Time Billed (hr/min): 60 Billed Treatment Time 1 visit ADL (20 min) FA x3 (40 min) Simona Paul OT May 15, 2021 11:02
--- NOTE | 2021-05-15 13:33 | Occupational Ther Daily Note ---
OT Current Status-Daily Note Subjective Pt with increased confusion this afternoon. RN notified. Appearance Pt returned to supine in bed, all needs within reach. ADL-Treatment Therapy Code Descriptions/Definitions Functional [place] Measure: 0=Not Assessed/NA 4=Minimal Assistance 1=Total Assistance 5=Supervision or Setup 2=Maximal Assistance 6=Modified [place] 3=Moderate Assistance 7=Complete IndependenceSCALE: Activities may be completed with or without assistive devices. 5-Mgdhlbixkr-yzxgpsu completes the activity by him/herself with no assistance from a helper. 5-Set-up or Clean-up Assistance-helper sets up or cleans up; patient completes activity. [place] assists only prior to or following the activity. 4-Supervision or Touching Assistance-helper provides verbal cues and/or touching/steadying and/or contact guard assistance as patient completes activity. Assistance may be provided throughout the activity or intermittently. 3-Partial/Moderate Assistance-helper does LESS THAN HALF the effort. [place] lifts, holds or supports trunk or limbs, but provides less than half the effort. 2-Substantial/Maximal Assistance-helper does MORE THAN HALF the effort. [place] lifts or holds trunk or limbs and provides more than half the effort. 4-Fbbkhnrah-butavi does ALL the effort. Patient does none of the effort to complete the activity. Or, the assistance of 2 or more helpers is required for the patient to complete the activity. If activity was not attempted, code reason: 7-Patient Refused. 9-Not Applicable-not attempted and the patient did not perform the activity before the current illness, exacerbation or injury. 10-Not Attempted due to Environmental Limitations-(lack of equipment, weather restraints, etc.). 88-Not Attempted due to Medical Conditions or Safety Concerns. Eating (QC): 5 Toileting Hygiene (QC): 6 Toilet Transfer (QC): 6 Other Treatment Pt sitting EOB at therapy arrival. He looks confused and questions when he was moved to the senior care. He is looking around the room as if he doesn't know where he is at. With time, pt able to recall therapist name and events that happened earlier in the morning. It appears pt may have been in a very deep sleep and required extra time to fully waken. He ambulated to/from bathroom with sba and use of walker. Indep with toileting. He stood at sink to wash face, no assist. Assist to set up lunch tray as pt unaware that lunch had arrived. Education OT Patient Education: Correct positioning, Progress toward Goal/Update tx plan, Purpose of tx/functional activities, Transfer techniques Teaching Recipient: Patient Teaching Methods: Discussion Response to Teaching: Verbalize Understanding, Reinforcement Needed OT Short Term Goals Short Term Goals Time Frame: May 16, 2021 Eatin Oral hygiene: 6 Toileting hygiene: 5 Shower/bathe self: 4 Upper body dressin Lower body dressin Putting on/taking off footwear: 3 OT Labor Employment Associate Goals Labor Employment Associate Goals Time Frame: May 23, 2021 Eating (QC): 6 Oral Hygiene (QC): 6 Toileting Hygiene (QC): 6 Shower/Bathe Self (QC): 5 Upper Body Dressing (QC): 6 Lower Body Dressing (QC): 6 On/Off Footwear (QC): 5 1=Demonstrate adherence to instructed precautions during ADL tasks. 2=Patient will verbalize/demonstrate understanding of assistive devices/modifications for ADL. 3=Patient will improve strength/tolerance for activity to enable patient to perform ADL's. OT Education/Plan Problem List/Assessment Assessment: Decreased Activ Tolerance, Decreased UE Strength, Impaired Funct Balance, Impaired Self-Care Skills Discharge Recommendations Plan/Recommendations: Continue POC Treatment Plan/Plan of Care Treatment,Training & Education: Yes Patient would benefit from OT for education, treatment and training to promote independence in ADL's, mobility, safety and/or upper extremity function for ADL's. Plan of Care: ADL Retraining, Functional Mobility, Group Exercise/Act as Ind, UE Funct Exercise/Act Treatment Duration: May 23, 2021 Frequency: At least 5 of 7 days/Wk (IRF) Estimated Hrs Per Day: 1.5 hours per day Agreement: Yes Rehab Potential: Good Time/GCodes Start Time: 13:00 Stop Time: 13:30 Total Time Billed (hr/min): 30 Billed Treatment Time 1 visit ADL x2 Simona Paul OT May 15, 2021 13:33
--- NOTE | 2021-05-15 14:50 | Physical Therapy Daily Note ---
PT Daily Note-Current Subjective Pt asleep R sidelying upon arrival. Pt very difficult to awaken. Pt very confused upon awakening. Pt doesn't know where he is and continues to be very drowsy. Mental Status Patient Orientation: Person, Confused Attachments: Other-See Comments Bone stimulator on for first part of tx. Transfers SCALE: Activities may be completed with or without assistive devices. 8-Howmishvej-wupkxuh completes the activity by him/herself with no assistance from a helper. 5-Set-up or Clean-up Assistance-helper sets up or cleans up; patient completes activity. [place] assists only prior to or following the activity. 4-Supervision or Touching Assistance-helper provides verbal cues and/or touching/steadying and/or contact guard assistance as patient completes activity. Assistance may be provided throughout the activity or intermittently. 3-Partial/Moderate Assistance-helper does LESS THAN HALF the effort. [place] lifts, holds or supports trunk or limbs, but provides less than half the effort. 2-Substantial/Maximal Assistance-helper does MORE THAN HALF the effort. [place] lifts or holds trunk or limbs and provides more than half the effort. 4-Mvsrwdsmm-obvtcb does ALL the effort. Patient does none of the effort to complete the activity. Or, the assistance of 2 or more helpers is required for the patient to complete the activity. If activity was not attempted, code reason: 7-Patient Refused. 9-Not Applicable-not attempted and the patient did not perform the activity before the current illness, exacerbation or injury. 10-Not Attempted due to Environmental Limitations-(lack of equipment, weather restraints, etc.). 88-Not Attempted due to Medical Conditions or Safety Concerns. Weight Bearing Full Weight Bearing Full Weight Bearing back precautions Exercises Supine Ex: Ankle pumps, Quad Set, Glut sets, Heel Slides, Straight leg raise, Hip abd/add Supine Reps: 10 Treatments Pt completes Supine Ex in bed with multiple RB as needed. Assessment Current Status: Fair Progress Confusion limits tx. PT Short Term Goals Short Term Goals Time Frame: May 16, 2021 Roll Left & Right: 4 (SBA) Sit to lyin (SA) Lying to sitting on side of be: 4 (SBA) Sit to stand: 4 (SBA) Chair/gof-ji-rmhxz transfer: 4 (SBA) Walk 10 feet: 4 (SBA) Walk 50 feet with two turns: 4 (SBA) Walk 150 feet: 4 (SBA) PT Outside Plant Field Engineer Goals Nursing Home Goals PT Outside Plant Field Engineer Goals Time Frame: May 30, 2021 Roll Left & Right (QC): 6 Sit to Lying (QC): 6 Lying-Sitting on Side/Bed(QC): 6 Sit to Stand (QC): 6 Chair/Eio-jc-Dboff Xfer(QC): 6 Toilet Transfer (QC): 6 Car Transfer (QC): 6 Does the Patient Walk: Yes Walk 10 feet (QC): 6 Walk 50ft with 2 Turns (QC): 6 Walk 150 ft (QC): 6 Walking 10ft on Uneven Surface: 6 1 Step (curb) (QC): 4 (SBA) 4 Steps (QC): 4 (SBA) 12 Steps (QC): 88 Picking up an Object (QC): 6 Wheel 50 feet with 2 turns (QC: 9 Wheel 150 feet: 9 PT Plan Problem List Problem List: Activity Tolerance, Functional Strength Treatment/Plan Treatment Plan: Continue Plan of Care Treatment Plan: Bed Mobility, Education, Functional Activity Catracho, Functional Strength, Group Therapy, Gait, Safety, Therapeutic Exercise, Transfers Treatment Duration: May 30, 2021 Frequency: At least 5 of 7 days/Wk (IRF) Estimated Hrs Per Day: 1.5 hours per day Patient and/or Family Agrees t: Yes Safety Risks/Education Patient Education: Correct Positioning Teaching Recipient: Patient Teaching Methods: Discussion Response to Teaching: Verbalize Understanding Time/GCodes Time In: 1330 Time Out: 1400 Total Billed Treatment Time: 30 Total Billed Treatment 1, FA (15m) & EX (15m) CARMELO SAM ELECTRIC SIGN WIRER May 15, 2021 14:50
[2021-05-15] MEDS: metFORMIN 500 MG (GLUCOPHAGE) TAB PO SCH (17:42)
[2021-05-15 19:51] VITALS: BP 131/75
[2021-05-15] MEDS: FLUTICASONE NASAL SPRAY (FLONASE) 16 GM BTL NS SCH (21:10)
[2021-05-16] MEDS: PRESERVISION AREDS SOFTGEL (BAUSH & LOMB) PO SCH (06:05)
[2021-05-16] MEDS: CATHETER FLUSH 10 ML SYR IV SCH ×3 (06:05→21:43)
[2021-05-16] MEDS: BETHANECHOL 25 MG (URECHOLINE) TAB PO SCH ×4 (06:05→21:38)
[2021-05-16] MEDS: CYANOCOBALAMIN 1,000 MCG (VITAMIN B-12) TABLET PO SCH (06:05)
[2021-05-16] MEDS: BACLOFEN 10 MG (LIORESAL) TAB PO PRN ×3 (06:05→21:39)
[2021-05-16] MEDS: LINACLOTIDE 290 MCG (LINZESS) CAPSULE PO SCH (06:05)
--- NOTE | 2021-05-16 06:33 | PM&R Progress Note ---
Subjective HPI/CC On Admission Date Seen by Provider: May 16, 2021 Time Seen by Provider: 10:30 Subjective/Events-last exam 05/16/21: Patient doing pretty well Spoke with Dr. BOSTON and we will transfer him to [place] on Wednesday to undergo surgery to close the wound Rocephin 1 g IV twice daily noted and tolerated No other concerns Bowels moving Updated patient and regarding lower extremity edema and the need to increase protein nutrition 05/15/2021: Patient doing well Pain is still an issue but baclofen is helped Rocephin 1 g twice daily Sleeping currently Checked meds and labs Bowels are moving Reviewed wound culture 05/14/2021: Pt is doing a lot better Had a large loose stool Wound vac will not be placed Dr. Jamison did probe the area of drainage and found it to probe all the way down to the hardware Rory Mckay and Dr. Boston were updated Cardiology was consulted for lower extremity edema He received a third iron infusion today 05/13/2021: Pt is doing okay Took his Linzess today for constipation Wound culture pending but later in the day and showed staph aureus and I reached out to Dr. BOSTON and he recommends wound VAC and may need a washout on Wednesday Rocephin maintained PICC line functioning well Baclofen helped with the pain 05/12/21: Pt is having a lot of pain Added Baclofen Plavix may be discontinued due to hemoglobin Dr. Farias has evaluated him Changed Zosyn and Vancomycin to Rocephin due to MSSA on culture at [facility] and blood cultures Dr. BOSTON request a wound culture on the wound drainage 05/11/2021: Patient doing really well Increased pain medication has helped Iron infusion and B12 supplement given Having urinary retention so started meds and performed in and out cath Check meds labs 05/10/2021: Patient doing really well Pain is an issue [place] [address] since he does have tolerance for that Awaiting iron level and B12 level suspect both low We'll discontinue catheter today and he is in agreement with that Checked meds and labs Appreciate Dr. Farias Review of Systems General: Fatigue, Malaise Cardiovascular: Edema Musculoskeletal: back pain Objective Exam Vital Signs Vital Signs Date Time Temp Pulse Resp B/P (MAP) Pulse Ox O2 Delivery O2 Flow Rate FiO2 05/16/21 21:00 Room Air 05/16/21 20:00 36.0 75 16 123/58 (63) 97 Capillary Refill : General Appearance: No Apparent Distress, WD/WN, Chronically ill HEENT: PERRL/EOMI, Normal ENT Inspection, Pharynx Normal Neck: Full Range of Motion, Normal Inspection, Non Tender, Supple, Carotid Bruit Respiratory: Chest Non Tender, Lungs Clear, Normal Breath Sounds, No Accessory Muscle Use, No Respiratory Distress Cardiovascular: No Edema, No Gallop, No JVD, No Murmur, Normal Peripheral Pulses, Irregularly Irregular Gastrointestinal: Normal Bowel Sounds, No Organomegaly, No Pulsatile Mass, Non Tender, Soft Back: CVA Tenderness (L), CVA Tenderness (R), Decreased Range of Motion, Vertebral Tenderness Extremity: Normal Capillary Refill, Normal Inspection, Normal Range of Motion, Non Tender, No Calf Tenderness, No Pedal Edema Neurologic/Psychiatric: Alert, Oriented x3, No Motor/Sensory Deficits, Normal Mood/Affect, enrollment eligibility representative II-XII Norm as Tested, Abnormal Gait, Motor Weakness (Generalized and legs 3/5) Skin: Normal Color, Warm/Dry Lymphatic: No Adenopathy Results/Procedures Lab Laboratory Tests 05/16/21 09:30 Patient resulted labs reviewed. FIM Transfers Therapy Code Descriptions/Definitions Functional [place] Measure: 0=Not Assessed/NA 4=Minimal Assistance 1=Total Assistance 5=Supervision or Setup 2=Maximal Assistance 6=Modified [place] 3=Moderate Assistance 7=Complete IndependenceSCALE: Activities may be completed with or without assistive devices. 6-Cqngizomaa-upgnpjc completes the activity by him/herself with no assistance from a helper. 5-Set-up or Clean-up Assistance-helper sets up or cleans up; patient completes activity. [place] assists only prior to or following the activity. 4-Supervision or Touching Assistance-helper provides verbal cues and/or touching/steadying and/or contact guard assistance as patient completes activity. Assistance may be provided throughout the activity or intermittently. 3-Partial/Moderate Assistance-helper does LESS THAN HALF the effort. [place] lifts, holds or supports trunk or limbs, but provides less than half the effort. 2-Substantial/Maximal Assistance-helper does MORE THAN HALF the effort. [place] lifts or holds trunk or limbs and provides more than half the effort. 5-Tijysznjo-qtphkd does ALL the effort. Patient does none of the effort to com plete the activity. Or, the assistance of 2 or more helpers is required for the patient to complete the activity. If activity was not attempted, code reason: 7-Patient Refused. 9-Not Applicable-not attempted and the patient did not perform the activity before the current illness, exacerbation or injury. 10-Not Attempted due to Environmental Limitations-(lack of equipment, weather restraints, etc.). 88-Not Attempted due to Medical Conditions or Safety Concerns. Roll Left to Right (QC): 6 Sit to Lying (QC): 3 Sit to Stand (QC): 5 Chair/Fgi-nw-Yeyja Xfer(QC): 4 Car Transfer (QC): 4 Gait Training Does the Patient Walk?: Yes Distance: 150' x2 Walk 10 feet (QC): 5 Walk 50 ft with 2 Turns(QC): 5 Walk 150 ft (QC): 5 Walking 10ft/uneven surface-QC: 4 Gait Persons Needed: 1 Gait Assistive Device: FWW Wheelchair Training Does the Pt Use a Wheelchair?: No Wheel 50 ft with 2 turns (QC): 9 Wheel 150 ft (QC): 9 Stair Training #of Steps: 1 1 Step (curb) (QC): 4 4 Steps (QC): 88 12 Steps (QC): 88 Balance Picking up an Object (QC): 4 (CGA using ice sculptor) ADL-Treatment Eating (QC): 5 Oral Hygiene (QC): 4 (pt reports he only rinses dentures. 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 Aspiration pneumonia status post on Zosyn and Vanco for 6 days discontinued 05/11/2021 due to MSSA on blood cultures Postoperative anemia received 2 units of blood 2 weeks ago receiving iron infusions and B12 supplement Atrial fibrillation with variation in rate consulting cardiology CAD previous stents maintained on Plavix Hypertension Hyperlipidemia Li cath in place discontinued 05/10/2021 now having retention on 05/11/2021 so started on Urecholine and Flomax and performing in and out caths now doing well Bacteremia with gram-positive cocci PICC line was placed source is operative wound 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 BOSTON on Wednesday Plan: Pain control Li cath will be discontinued soon PICC line IV antibiotics Aggressive rehab 05/10/2021: IV antibiotics DC catheter Appreciate Dr. Farias Increase pain medication 05/11/2021: IV antibiotics Urinary retention management 05/12/2021: Wound culture per Dr. Boston Maintain Rocephin May need I&D of the wound 05/13/2021: Maintain Rocephin Baclofen helpful Wound VAC may be needed 05/14/2021: Wound VAC not an option Appreciate Dr. Jamison Await plan per Dr. Boston Change Rocephin to twice a day 05/15/2021: Supportive care Rocephin Continue therapy 05/16/2021: Surgery on Wednesday Discharge from rehab and he will go to [place] Continue Rocephin twice daily (1) Spondylosis of lumbar spine with myelopathy DIANE DAMIAN DO May 16, 2021 06:33
[2021-05-16] MEDS: cefTRIAXone 1 GM PRE-MIX 50 ML IV SCH ×2 (07:45→21:39)
[2021-05-16] MEDS: PANTOPRAZOLE 40 MG (PROTONIX) TAB PO SCH (07:46)
[2021-05-16] MEDS: SENNA W/DOCUSATE (SENOKOT S) TABLET PO SCH ×2 (07:46→21:38)
[2021-05-16] MEDS: CLOPIDOGREL 75 MG (PLAVIX) TABLET PO SCH (07:46)
[2021-05-16] MEDS: TAMSULOSIN 0.4 MG (FLOMAX) CAP PO SCH ×2 (07:46→17:37)
[2021-05-16] MEDS: SPIRONOLACTONE 25 MG (ALDACTONE) TAB PO SCH (07:46)
[2021-05-16] MEDS: APIXABAN 5 MG (ELIQUIS) TABLET PO SCH ×2 (07:46→21:39)
[2021-05-16] MEDS: IRON SUCROSE 200 MG/10 ML (VENOFER) VIAL IV SCH (07:46)
[2021-05-16] MEDS: KCL 10 MEQ TAB (MICRO K) PO SCH ×2 (07:46→17:37)
[2021-05-16] MEDS: DOCUSATE SODIUM 100 MG (COLACE) CAP PO SCH ×2 (07:46→21:38)
[2021-05-16] MEDS: meTOproloL SUCCINATE 50 MG (TOPROL XL) TAB PO SCH ×2 (07:46→21:38)
[2021-05-16] MEDS: FUROSEMIDE 40 MG (LASIX) TAB PO SCH (07:46)
[2021-05-16 08:00] VITALS: BP 153/78
--- NOTE | 2021-05-16 08:56 | Physical Therapy Daily Note ---
PT Daily Note-Current Subjective Pt. up in recliner and requests to go to bathroom for a short walk and then to bed as he is having 8/10 pain in his back /incision area. Pt. states he has been up in the recliner since 430 AM and is so tired. Pt. c/o he has increasing edema in his LEs and cant seem to get any answers about why. Pt. states he feels secure with his ambulation and would like to advance to a cane like he has at home. Pain Numeric Pain Scale: 8 Location: Medial Location Body Site: Back Pain Description: Burning Mental Status Patient Orientation: Normal For Age Attachments: Other-See Comments (back brace) Transfers SCALE: Activities may be completed with or without assistive devices. 8-Tnrguscldi-fzwcmjt completes the activity by him/herself with no assistance from a helper. 5-Set-up or Clean-up Assistance-helper sets up or cleans up; patient completes activity. [place] assists only prior to or following the activity. 4-Supervision or Touching Assistance-helper provides verbal cues and/or touching/steadying and/or contact guard assistance as patient completes activity. Assistance may be provided throughout the activity or intermittently. 3-Partial/Moderate Assistance-helper does LESS THAN HALF the effort. [place] lifts, holds or supports trunk or limbs, but provides less than half the effort. 2-Substantial/Maximal Assistance-helper does MORE THAN HALF the effort. [place] l ifts or holds trunk or limbs and provides more than half the effort. 1-Gwsidtcsu-avbtte does ALL the effort. Patient does none of the effort to complete the activity. Or, the assistance of 2 or more helpers is required for the patient to complete the activity. If activity was not attempted, code reason: 7-Patient Refused. 9-Not Applicable-not attempted and the patient did not perform the activity before the current illness, exacerbation or injury. 10-Not Attempted due to Environmental Limitations-(lack of equipment, weather restraints, etc.). 88-Not Attempted due to Medical Conditions or Safety Concerns. Roll Left & Right (QC): 6 Sit to Lying (QC): 6 Lying to Sitting/Side of Bed(Q: 6 Sit to Stand (QC): 6 Chair/Zeq-mc-Vffra Xfer(QC): 6 Toilet Transfer (QC): 6 Weight Bearing Full Weight Bearing Full Weight Bearing back precautions Gait Training Does the Patient Walk?: Yes Walk 10 feet (QC): 6 Walk 50 ft with 2 Turns(QC): 6 Gait Persons Needed: 1 Gait Assistive Device: FWW pt. requests to walk only a short distance secondary to his back pain. wants to go to bed, requests to trial a cane when he is better and feels like walking further Exercises Supine Ex: Ankle pumps, Quad Set, Rolling, Glut sets, Heel Slides, Short Arc Quads, Hip abd/add Supine Reps: 20 Treatments pt. very tired, falls asleep between exercises, Pt. donns back brace indep. requests to walk short dist, then to bed, agrees to ex. gait to bthrm and about room, ex in bed, toileted managing briefs indep, to bed for ex, LEs elevated after Rx. warm blanket and call boogie at hand after Rx Assessment Current Status: Fair Progress limited this date by back pain and lethargy PT Short Term Goals Short Term Goals Time Frame: May 16, 2021 Roll Left & Right: 4 (SBA) Sit to lyin (SA) Lying to sitting on side of be: 4 (SBA) Sit to stand: 4 (SBA) Chair/ugz-uh-jhokw transfer: 4 (SBA) Walk 10 feet: 4 (SBA) Walk 50 feet with two turns: 4 (SBA) Walk 150 feet: 4 (SBA) PT Senior Care Goals Senior Care Goals PT Senior Care Goals Time Frame: May 30, 2021 Roll Left & Right (QC): 6 Sit to Lying (QC): 6 Lying-Sitting on Side/Bed(QC): 6 Sit to Stand (QC): 6 Chair/Ylx-ue-Mxlrx Xfer(QC): 6 Toilet Transfer (QC): 6 Car Transfer (QC): 6 Does the Patient Walk: Yes Walk 10 feet (QC): 6 Walk 50ft with 2 Turns (QC): 6 Walk 150 ft (QC): 6 Walking 10ft on Uneven Surface: 6 1 Step (curb) (QC): 4 (SBA) 4 Steps (QC): 4 (SBA) 12 Steps (QC): 88 Picking up an Object (QC): 6 Wheel 50 feet with 2 turns (QC: 9 Wheel 150 feet: 9 PT Plan Treatment/Plan Treatment Plan: Continue Plan of Care Treatment Plan: Bed Mobility, Education, Functional Activity Catracho, Functional Strength, Group Therapy, Gait, Safety, Therapeutic Exercise, Transfers Treatment Duration: May 30, 2021 Frequency: At least 5 of 7 days/Wk (IRF) Estimated Hrs Per Day: 1.5 hours per day Patient and/or Family Agrees t: Yes Safety Risks/Education Patient Education: Gait Training, Transfer Techniques, Correct Positioning, Safety Issues Teaching Recipient: Patient Teaching Methods: Demonstration, Discussion Response to Teaching: Verbalize Understanding, Return Demonstration, Reinforcement Needed Time/GCodes Time In: 800 Time Out: 900 Total Billed Treatment Time: 60 Total Billed Treatment 1,FA15m,GT10m,EX35m KEIKO COLBY CORPORATE ACCOUNTANT May 16, 2021 08:56
[2021-05-16 09:41] LABS: BASOPHILS % (AUTO) 1 % (0-10); EOSINOPHILS % (AUTO) 1 % (0-10); HEMATOCRIT 26 % (40-54); HEMOGLOBIN 7.7 g/dL (13.3-17.7); LYMPHOCYTES % (AUTO) 24 % (12-44); MEAN CORPUSCULAR HEMOGLOBIN 27 pg (25-34); MEAN CORPUSCULAR HGB CONC 30 g/dL (32-36); MEAN CORPUSCULAR VOLUME 91 fL (80-99); MEAN PLATELET VOLUME 8.9 fL (9.0-12.2); MONOCYTES # (AUTO) 0.2 10^3/uL (0.0-1.0); MONOCYTES % (AUTO) 6 % (0-12); NEUTROPHILS # (AUTO) 2.8 10^3/uL (1.8-7.8); NEUTROPHILS % (AUTO) 68 % (42-75); PLATELET COUNT 67 10^3/uL (130-400); WHITE BLOOD COUNT 4.2 10^3/uL (4.3-11.0)
[2021-05-16 09:59] LABS: ALBUMIN 2.5 GM/DL (3.2-4.5); BILIRUBIN,TOTAL 0.3 MG/DL (0.1-1.0); CALCIUM 7.5 MG/DL (8.5-10.1); CREATININE SERUM 0.93 MG/DL (0.60-1.30); MAGNESIUM 1.9 MG/DL (1.6-2.4); POTASSIUM 4.5 MMOL/L (3.6-5.0); TOTAL PROTEIN 5.7 GM/DL (6.4-8.2)
--- NOTE | 2021-05-16 10:23 | Diagnostic Imaging Report ---
INDICATION: PIC line placement. TIME OF EXAM: 9:55 AM CORRELATION is made with prior chest from 05/09/2021. Changes of median sternotomy are noted. The heart is enlarged. Right upper extremity PICC line appears to have the tip at the upper portion of the right atrium. There is no pneumothorax. There appears to be some trace pleural fluid in the right base. There may be some infiltrate or atelectasis in the right mid and lower lung mohamud, as well. The left lung is clear. Spinal instrumentation in the lumbar spine is noted. IMPRESSION: 1. PICC location, as described. 2. Small right effusion with right-sided infiltrates or atelectasis. Dictated by: Dictated on workstation # [id number]
[2021-05-16] MEDS: polyethylene glycoL POWDER 17 GM (MIRALAX) PACK PO SCH ×2 (10:39→21:40)
--- NOTE | 2021-05-16 11:10 | Occupational Ther Daily Note ---
OT Current Status-Daily Note Subjective Pt reports back pain as 8/10 this session. Extra time to perform all functional tasks. Appearance Pt left sitting in recliner, all needs within reach, and RN in room. ADL-Treatment Therapy Code Descriptions/Definitions Functional [place] Measure: 0=Not Assessed/NA 4=Minimal Assistance 1=Total Assistance 5=Supervision or Setup 2=Maximal Assistance 6=Modified [place] 3=Moderate Assistance 7=Complete IndependenceSCALE: Activities may be completed with or without assistive devices. 9-Ufrwksrcef-hbjnngh completes the activity by him/herself with no assistance from a helper. 5-Set-up or Clean-up Assistance-helper sets up or cleans up; patient completes activity. [place] assists only prior to or following the activity. 4-Supervision or Touching Assistance-helper provides verbal cues and/or alvaro mayur/steadying and/or contact guard assistance as patient completes activity. Assistance may be provided throughout the activity or intermittently. 3-Partial/Moderate Assistance-helper does LESS THAN HALF the effort. [place] lifts, holds or supports trunk or limbs, but provides less than half the effort. 2-Substantial/Maximal Assistance-helper does MORE THAN HALF the effort. [place] lifts or holds trunk or limbs and provides more than half the effort. 9-Qgwsyrdkb-wtdlvg does ALL the effort. Patient does none of the effort to complete the activity. Or, the assistance of 2 or more helpers is required for the patient to complete the activity. If activity was not attempted, code reason: 7-Patient Refused. 9-Not Applicable-not attempted and the patient did not perform the activity before the current illness, exacerbation or injury. 10-Not Attempted due to Environmental Limitations-(lack of equipment, weather restraints, etc.). 88-Not Attempted due to Medical Conditions or Safety Concerns. Eating (QC): 6 Lower Body Dressing (QC): 3 Toileting Hygiene (QC): 6 Toilet Transfer (QC): 6 Pt sitting on toilet at OT arrival. He is already dressed but requests to change brief secondary to it being wet from drainage (on back). Pt continues to need min a to thread RLE into brief with use of advertising copy writer. However, reports that she will perform task for patient as they are not interested in purchasing a advertising copy writer. With extra time, he is able to thread BLE's into pants, no assist. He stood to pull up to waist with supervision for safety. Other Treatment Due to pain, pt requests to sit in chair. OT issued and instructed pt on HEP with green theraband. Further education/reinforcement will be needed. Min-Mod cues for correct technique. Pt appears to tolerate well, 12x1 all planes. Good follow through with maintaining tension throughout entire movement. Education OT Patient Education: Correct positioning, Energy conservation, Home exercise program, Modified ADL techniques, Purpose of tx/functional activities, Safety issues, Use of adapted equipment Teaching Recipient: Patient Teaching Methods: Demonstration, Discussion Response to Teaching: Verbalize Understanding, Return Demonstration, Reinforcement Needed OT Short Term Goals Short Term Goals Time Frame: May 16, 2021 Eatin Oral hygiene: 6 Toileting hygiene: 5 Shower/bathe self: 4 Upper body dressin Lower body dressin Putting on/taking off footwear: 3 OT Bulb Weeder Goals Care Home Goals Time Frame: May 23, 2021 Eating (QC): 6 Oral Hygiene (QC): 6 Toileting Hygiene (QC): 6 Shower/Bathe Self (QC): 5 Upper Body Dressing (QC): 6 Lower Body Dressing (QC): 6 On/Off Footwear (QC): 5 1=Demonstrate adherence to instructed precautions during ADL tasks. 2=Patient will verbalize/demonstrate understanding of assistive devices/modifications for ADL. 3=Patient will improve strength/tolerance for activity to enable patient to perform ADL's. OT Education/Plan Problem List/Assessment Assessment: Decreased Activ Tolerance, Decreased UE Strength, Impaired I ADL's, Impaired Self-Care Skills Discharge Recommendations Plan/Recommendations: Continue POC Treatment Plan/Plan of Care Treatment,Training & Education: Yes Patient would benefit from OT for education, treatment and training to promote independence in ADL's, mobility, safety and/or upper extremity function for ADL's. Plan of Care: ADL Retraining, Functional Mobility, Group Exercise/Act as Ind, UE Funct Exercise/Act Treatment Duration: May 23, 2021 Frequency: At least 5 of 7 days/Wk (IRF) Estimated Hrs Per Day: 1.5 hours per day Agreement: Yes Rehab Potential: Good Time/GCodes Start Time: 10:15 Stop Time: 11:15 Total Time Billed (hr/min): 60 Billed Treatment Time 1 visit ADL x2 (25 min) EX x2 (35 min) Simona Paul OT May 16, 2021 11:10
--- NOTE | 2021-05-16 11:23 | Cardiology Progress Note ---
Subjective Date Seen by Provider: May 16, 2021 Time Seen by Provider: 11:22 Subjective/Events-last exam Patient was seen at bedside, feeling better, still having pedal edema. Concerned about his swelling. Review of Systems General: No Chills, No Night Sweats; Fatigue; No Malaise, No Appetite, No Other HEENT: No Head Aches, No Visual Changes, No Eye Pain, No Ear Pain, No Dysphasia, No Sinus Congestion, No Post Nasal Drip, No Sore Throat, No Other Pulmonary: Dyspnea; No Cough, No Pleuritic Chest Pain, No Other Cardiovascular: Edema; No: Chest Pain, Palpitations, Orthopnea, Paroxysmal Noc. Dyspnea, Lt Headedness, Other Objective-Cardiology Exam Last Set of Vital Signs Vital Signs 05/16/21 05/16/21 08:00 09:00 Temp 36.2 Pulse 88 Resp 20 B/P (MAP) 153/78 (103) Pulse Ox 99 O2 Delivery Room Air I&O Intake and Output 05/16/21 00:00 Intake Total 1740 ml Output Total 1975 ml Balance -235 ml Intake Oral 1690 ml IV Total 50 ml Output Urine Total 1975 ml # Bowel Movements 1 General: Alert, Oriented X3, Cooperative HEENT: Atraumatic, PERRLA Neck: Supple, No JVD, No Thyromegaly Lungs: Clear to Auscultation, Normal Air Movement Heart: Regular Rate, Normal S1, Normal S2, No Murmurs Abdomen: Normal Bowel Sounds, Soft, No Tenderness, No Hepatosplenomegaly, No Masses Extremities: No Clubbing, No Cyanosis, Normal Pulses, No Tenderness/Swelling, Other (Mild pedal edema) Skin: No Rashes, No Breakdown, No Significant Lesion Neuro: Normal Speech, Normal Tone, Sensation Intact Psych/Mental Status: Mental Status NL, Mood NL Results Lab Laboratory Tests 05/16/21 09:30 A/P-Cardiology Admission Diagnosis Atrial fibrillation Coronary artery disease Hypertension Anemia Assessment/Plan Atrial fibrillation with controlled ventricular rate, maintained on Cardizem CD 300 mg daily and Toprol-XL 50 mg twice daily. Having few episodes of borderline tachycardia, continue on current medications and monitor 2D echo was done on May 12, 2021 showing normal LV size with EF 50 to 55%, biatrial enlargement, PA pressure 60 to 65 mmHg, aortic valve sclerosis. Pedal edema, chronic, using compression socks, maintained on Lasix 40 mg daily and Aldactone. Responded to single dose Zaroxolyn, I will give additional dose tomorrow and monitor [id number] score 4, yearly risk of stroke without oral anticoagulation is 4%, maintained on Eliquis. Anemia, monitor H&H. Coronary artery disease, history of CABG x3 done in 2013, reported that he had 2 stents placed in 2018. He is currently asymptomatic. Maintained on Plavix. Continue to monitor Lumbar spine surgery on April 21, 2021, slow recovery, having myelopathy and spondylosis and generalized weakness and back pain. Aspiration pneumonia, receiving Zosyn and vancomycin Postoperative anemia, managed by medical team, monitor H&H Hypertension, continue to monitor blood pressure Hyperlipidemia, monitor lipids Bacteremia, gram-positive cocci. PICC line was placed. 2D Echo done showed no evidence of vegetation. LAQUITA JAMIL MD May 16, 2021 11:23
--- NOTE | 2021-05-16 12:59 | Physical Therapy Daily Note ---
PT Daily Note-Current Subjective Pt. requests to try walking with his SPC. no pain c/o Pain Location: No Pain Reported Mental Status Patient Orientation: Normal For Age Attachments: Other-See Comments (back brace abd bone stimulator) Transfers SCALE: Activities may be completed with or without assistive devices. 9-Thuozozhlw-deaxpew completes the activity by him/herself with no assistance from a helper. 5-Set-up or Clean-up Assistance-helper sets up or cleans up; patient completes activity. [place] assists only prior to or following the activity. 4-Supervision or Touching Assistance-helper provides verbal cues and/or touching/steadying and/or contact guard assistance as patient completes activity. Assistance may be provided throughout the activity or intermittently. 3-Partial/Moderate Assistance-helper does LESS THAN HALF the effort. [place] lifts, holds or supports trunk or limbs, but provides less than half the effort. 2-Substantial/Maximal Assistance-helper does MORE THAN HALF the effort. [place] lifts or holds trunk or limbs and provides more than half the effort. 5-Vghugaeun-gnscvf does ALL the effort. Patient does none of the effort to complete the activity. Or, the assistance of 2 or more helpers is required for the patient to complete the activity. If activity was not attempted, code reason: 7-Patient Refused. 9-Not Applicable-not attempted and the patient did not perform the activity before the current illness, exacerbation or injury. 10-Not Attempted due to Environmental Limitations-(lack of equipment, weather restraints, etc.). 88-Not Attempted due to Medical Conditions or Safety Concerns. all TRFs SBA Weight Bearing Full Weight Bearing Full Weight Bearing back precautions Gait Training Does the Patient Walk?: Yes Gait Assistive Device: Cane Single Point [id number] CGA, instructed in sequence which he grasped very quickly, good pattern ,no LOB Exercises NuStep Minutes: 8 NuStep Workload: 2 Assessment Current Status: Good Progress PT Short Term Goals Short Term Goals Time Frame: May 16, 2021 Roll Left & Right: 4 (SBA) Sit to lyin (SA) Lying to sitting on side of be: 4 (SBA) Sit to stand: 4 (SBA) Chair/otu-zu-pyawl transfer: 4 (SBA) Walk 10 feet: 4 (SBA) Walk 50 feet with two turns: 4 (SBA) Walk 150 feet: 4 (SBA) PT Intermediate Goals Intermediate Goals PT Intermediate Goals Time Frame: May 30, 2021 Roll Left & Right (QC): 6 Sit to Lying (QC): 6 Lying-Sitting on Side/Bed(QC): 6 Sit to Stand (QC): 6 Chair/Gyt-fh-Blsgm Xfer(QC): 6 Toilet Transfer (QC): 6 Car Transfer (QC): 6 Does the Patient Walk: Yes Walk 10 feet (QC): 6 Walk 50ft with 2 Turns (QC): 6 Walk 150 ft (QC): 6 Walking 10ft on Uneven Surface: 6 1 Step (curb) (QC): 4 (SBA) 4 Steps (QC): 4 (SBA) 12 Steps (QC): 88 Picking up an Object (QC): 6 Wheel 50 feet with 2 turns (QC: 9 Wheel 150 feet: 9 PT Plan Treatment/Plan Treatment Plan: Continue Plan of Care Treatment Plan: Bed Mobility, Education, Functional Activity [place], Functional Strength, Group Therapy, Gait, Safety, Therapeutic Exercise, Transfers Treatment Duration: May 30, 2021 Frequency: At least 5 of 7 days/Wk (IRF) Estimated Hrs Per Day: 1.5 hours per day Patient and/or Family Agrees t: Yes Safety Risks/Education Patient Education: Gait Training, Transfer Techniques, Correct Positioning, Safety Issues Teaching Recipient: Patient Teaching Methods: Demonstration, Discussion Response to Teaching: Verbalize Understanding, Return Demonstration, Reinforcement Needed Time/GCodes Time In: 1230 Time Out: 1300 Total Billed Treatment Time: 30 Total Billed Treatment 1,GT15m,EX15m KEIKO COLBY PRINTING PLATE CLERK May 16, 2021 12:59
--- NOTE | 2021-05-16 13:36 | Occupational Ther Daily Note ---
OT Current Status-Daily Note Subjective Pt with family present in room. Looking forward to playing a board game with them later. Appearance Pt left supine in bed per request. All needs within reach. Family in the room. ADL-Treatment Therapy Code Descriptions/Definitions Functional [place] Measure: 0=Not Assessed/NA 4=Minimal Assistance 1=Total Assistance 5=Supervision or Setup 2=Maximal Assistance 6=Modified [place] 3=Moderate Assistance 7=Complete IndependenceSCALE: Activities may be completed with or without assistive devices. 4-Xfuucktqvz-obzihwx completes the activity by him/herself with no assistance from a helper. 5-Set-up or Clean-up Assistance-helper sets up or cleans up; patient completes activity. [place] assists only prior to or following the activity. 4-Supervision or Touching Assistance-helper provides verbal cues and/or touching/steadying and/or contact guard assistance as patient completes activity. Assistance may be provided throughout the activity or intermittently. 3-Partial/Moderate Assistance-helper does LESS THAN HALF the effort. [place] lifts, holds or supports trunk or limbs, but provides less than half the effort. 2-Substantial/Maximal Assistance-helper does MORE THAN HALF the effort. [place] lifts or holds trunk or limbs and provides more than half the effort. 2-Pcotrixmp-dvvhhs does ALL the effort. Patient does none of the effort to complete the activity. Or, the assistance of 2 or more helpers is required for the patient to complete the activity. If activity was not attempted, code reason: 7-Patient Refused. 9-Not Applicable-not attempted and the patient did not perform the activity before the current illness, exacerbation or injury. 10-Not Attempted due to Environmental Limitations-(lack of equipment, weather restraints, etc.). 88-Not Attempted due to Medical Conditions or Safety Concerns. Other Treatment Pt participated in simulated homemaking task (organizing) in effort to improve awareness and problem solving with spinal precautions. Beans bags placed throughout room at various heights. Pt ambulated around room with use of walker, supervision. Education on using pilot plant technician to pick items from floor as pt unable to perform squat at this time. Good safety with walker and no reaching out of TAZ observed. Pt does exhibit mild SOB with exertion, but improves quickly with a seated rest break. Education OT Patient Education: Correct positioning, Energy conservation, Modified ADL techniques, Purpose of tx/functional activities, Reviewed precautions Teaching Recipient: Patient Teaching Methods: Discussion Response to Teaching: Verbalize Understanding, Return Demonstration OT Short Term Goals Short Term Goals Time Frame: May 16, 2021 Eatin Oral hygiene: 6 Toileting hygiene: 5 Shower/bathe self: 4 Upper body dressin Lower body dressin Putting on/taking off footwear: 3 OT Collar Pointer Goals Collar Pointer Goals Time Frame: May 23, 2021 Eating (QC): 6 Oral Hygiene (QC): 6 Toileting Hygiene (QC): 6 Shower/Bathe Self (QC): 5 Upper Body Dressing (QC): 6 Lower Body Dressing (QC): 6 On/Off Footwear (QC): 5 1=Demonstrate adherence to instructed precautions during ADL tasks. 2=Patient will verbalize/demonstrate understanding of assistive devices/modifications for ADL. 3=Patient will improve strength/tolerance for activity to enable patient to perform ADL's. OT Education/Plan Problem List/Assessment Assessment: Decreased Activ Tolerance, Decreased UE Strength, Impaired I ADL's, Impaired Self-Care Skills Discharge Recommendations Plan/Recommendations: Continue POC Treatment Plan/Plan of Care Patient would benefit from OT for education, treatment and training to promote independence in ADL's, mobility, safety and/or upper extremity function for ADL's. Plan of Care: ADL Retraining, Functional Mobility, Group Exercise/Act as Ind, UE Funct Exercise/Act Treatment Duration: May 23, 2021 Frequency: At least 5 of 7 days/Wk (IRF) Estimated Hrs Per Day: 1.5 hours per day Agreement: Yes Rehab Potential: Good Time/GCodes Start Time: 13:00 Stop Time: 13:30 Total Time Billed (hr/min): 30 Billed Treatment Time 1 visit Simona Patel OT May 16, 2021 13:36
[2021-05-16] MEDS: metFORMIN 500 MG (GLUCOPHAGE) TAB PO SCH (17:37)
[2021-05-16 20:00] VITALS: BP 123/58
[2021-05-16] MEDS: FLUTICASONE NASAL SPRAY (FLONASE) 16 GM BTL NS SCH (21:38)
[2021-05-17] MEDS: CYANOCOBALAMIN 1,000 MCG (VITAMIN B-12) TABLET PO SCH (06:51)
[2021-05-17] MEDS: BETHANECHOL 25 MG (URECHOLINE) TAB PO SCH ×4 (06:51→21:06)
[2021-05-17] MEDS: LINACLOTIDE 290 MCG (LINZESS) CAPSULE PO SCH (06:52)
[2021-05-17] MEDS: PRESERVISION AREDS SOFTGEL (BAUSH & LOMB) PO SCH (06:52)
[2021-05-17] MEDS: CATHETER FLUSH 10 ML SYR IV SCH ×2 (06:54→13:28)
[2021-05-17 07:30] VITALS: BP 135/69
--- NOTE | 2021-05-17 07:40 | PM&R Progress Note ---
Subjective HPI/CC On Admission Date Seen by Provider: May 17, 2021 Time Seen by Provider: 12:15 Subjective/Events-last exam 05/17/2021: Patient doing well Holding Plavix and Eliquis in preparation for surgery on Wednesday Patient denies any issues Bowels are moving well at bedside 05/16/21: Patient doing pretty well Spoke with Dr. BOSTON and we will transfer him to [place] on Wednesday to undergo surgery to close the wound Rocephin 1 g IV twice daily noted and tolerated No other concerns Bowels moving Updated patient and regarding lower extremity edema and the need to increase protein nutrition 05/15/2021: Patient doing well Pain is still an issue but baclofen is helped Rocephin 1 g twice daily Sleeping currently Checked meds and labs Bowels are moving Reviewed wound culture 05/14/2021: Pt is doing a lot better Had a large loose stool Wound vac will not be placed Dr. Jamison did probe the area of drainage and found it to probe all the way down to the hardware Rory Mckay and Dr. Boston were updated Cardiology was consulted for lower extremity edema He received a third iron infusion today 05/13/2021: Pt is doing okay Took his Linzess today for constipation Wound culture pending but later in the day and showed staph aureus and I reached out to Dr. BOSTON and he recommends wound VAC and may need a washout on Wednesday Rocephin maintained PICC line functioning well Baclofen helped with the pain 05/12/21: Pt is having a lot of pain Added Baclofen Plavix may be discontinued due to hemoglobin Dr. Farias has evaluated him Changed Zosyn and Vancomycin to Rocephin due to MSSA on culture at [facility] and blood cultures Dr. BOSTON request a wound culture on the wound drainage 05/11/2021: Patient doing really well Increased pain medication has helped Iron infusion and B12 supplement given Having urinary retention so started meds and performed in and out cath Check meds labs 05/10/2021: Patient doing really well Pain is an issue so I will change his hydrocodone to the 10/325 since he does have tolerance for that Awaiting iron level and B12 level suspect both low We'll discontinue catheter today and he is in agreement with that Checked meds and labs Appreciate Dr. Farias Review of Systems General: Fatigue, Malaise Musculoskeletal: back pain Neurological: Weakness Objective Exam Vital Signs Vital Signs Date Time Temp Pulse Resp B/P (MAP) Pulse Ox O2 Delivery O2 Flow Rate FiO2 05/17/21 21:00 Room Air 05/17/21 20:00 36.0 75 16 123/58 (79) 97 Capillary Refill : General Appearance: No Apparent Distress, WD/WN, Chronically ill HEENT: PERRL/EOMI, Normal ENT Inspection, Pharynx Normal Neck: Full Range of Motion, Normal Inspection, Non Tender, Supple, Carotid Bruit Respiratory: Chest Non Tender, Lungs Clear, Normal Breath Sounds, No Accessory Muscle Use, No Respiratory Distress Cardiovascular: No Edema, No Gallop, No JVD, No Murmur, Normal Peripheral Pulses, Irregularly Irregular Gastrointestinal: Normal Bowel Sounds, No Organomegaly, No Pulsatile Mass, Non Tender, Soft Back: CVA Tenderness (L), CVA Tenderness (R), Decreased Range of Motion, Vertebral Tenderness Extremity: Normal Capillary Refill, Normal Inspection, Normal Range of Motion, Non Tender, No Calf Tenderness, No Pedal Edema Neurologic/Psychiatric: Alert, Oriented x3, No Motor/Sensory Deficits, Normal Mood/Affect, flake miller wheat and oats II-XII Norm as Tested, Abnormal Gait, Motor Weakness (Generalized and legs 3/5) Skin: Normal Color, Warm/Dry Lymphatic: No Adenopathy Results/Procedures Lab Patient resulted labs reviewed. FIM Transfers Therapy Code Descriptions/Definitions Functional [place] Measure: 0=Not Assessed/NA 4=Minimal Assistance 1=Total Assistance 5=Supervision or Setup 2=Maximal Assistance 6=Modified [place] 3=Moderate Assistance 7=Complete IndependenceSCALE: Activities may be completed with or without assistive devices. 0-Aklajlzwak-ubsmxrv completes the activity by him/herself with no assistance from a helper. 5-Set-up or Clean-up Assistance-helper sets up or cleans up; patient completes activity. [place] assists only prior to or following the activity. 4-Supervision or Touching Assistance-helper provides verbal cues and/or touching/steadying and/or contact guard assistance as patient completes activ ity. Assistance may be provided throughout the activity or intermittently. 3-Partial/Moderate Assistance-helper does LESS THAN HALF the effort. [place] lifts, holds or supports trunk or limbs, but provides less than half the effort. 2-Substantial/Maximal Assistance-helper does MORE THAN HALF the effort. [place] lifts or holds trunk or limbs and provides more than half the effort. 4-Pywfdnahi-uxoycx does ALL the effort. Patient does none of the effort to complete the activity. Or, the assistance of 2 or more helpers is required for the patient to complete the activity. If activity was not attempted, code reason: 7-Patient Refused. 9-Not Applicable-not attempted and the patient did not perform the activity before the current illness, exacerbation or injury. 10-Not Attempted due to Environmental Limitations-(lack of equipment, weather restraints, etc.). 88-Not Attempted due to Medical Conditions or Safety Concerns. Roll Left to Right (QC): 6 Sit to Lying (QC): 6 Sit to Stand (QC): 6 Chair/Qed-hl-Tjmku Xfer(QC): 6 Car Transfer (QC): 4 Gait Training Does the Patient Walk?: Yes Distance: 150' x2 Walk 10 feet (QC): 6 Walk 50 ft with 2 Turns(QC): 6 Walk 150 ft (QC): 5 Walking 10ft/uneven surface-QC: 4 Gait Persons Needed: 1 Gait Assistive Device: Cane Single Point Wheelchair Training Does the Pt Use a Wheelchair?: No Wheel 50 ft with 2 turns (QC): 9 Wheel 150 ft (QC): 9 Stair Training #of Steps: 1 1 Step (curb) (QC): 4 4 Steps (QC): 88 12 Steps (QC): 88 Balance Picking up an Object (QC): 4 (CGA using tailercpa) ADL-Treatment Eating (QC): 6 Oral Hygiene (QC): 4 (pt reports he only rinses dentures. 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 Aspiration pneumonia status post on Zosyn and Vanco for 6 days discontinued 05/11/2021 due to MSSA on blood cultures placed on Rocephin twice daily Postoperative anemia received 2 units of blood 2 weeks ago receiving iron infusions and B12 supplement Atrial fibrillation with variation in rate consulting cardiology CAD previous stents maintained on Plavix Hypertension Hyperlipidemia Li cath in place discontinued 05/10/2021 now having retention on 05/11/2021 so started on Urecholine and Flomax and performing in and out caths now doing well Bacteremia with gram-positive cocci PICC line was placed source is operative wound 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 BOSTON on Wednesday Plan: Pain control Li cath will be discontinued soon PICC line IV antibiotics Aggressive rehab 05/10/2021: IV antibiotics DC catheter Appreciate Dr. Farias Increase pain medication 05/11/2021: IV antibiotics Urinary retention management 05/12/2021: Wound culture per Dr. Boston Maintain Rocephin May need I&D of the wound 05/13/2021: Maintain Rocephin Baclofen helpful Wound VAC may be needed 05/14/2021: Wound VAC not an option Appreciate Dr. Jamison Await plan per Dr. Boston Change Rocephin to twice a day 05/15/2021: Supportive care Rocephin Continue therapy 05/16/2021: Surgery on Wednesday Discharge from rehab and he will go to [place] Continue Rocephin twice daily 05/17/2021: Supportive care Surgery on Wednesday Rocephin twice daily (1) Spondylosis of lumbar spine with myelopathy DIANE DAMIAN DO May 17, 2021 07:40
[2021-05-17] MEDS ORDERED: METOLAZONE 5 MG (ZAROXOLYN) TAB PO NR (08:00)
[2021-05-17] MEDS: FUROSEMIDE 40 MG (LASIX) TAB PO SCH (08:39)
[2021-05-17] MEDS: meTOproloL SUCCINATE 50 MG (TOPROL XL) TAB PO SCH ×2 (08:39→21:06)
[2021-05-17] MEDS: PANTOPRAZOLE 40 MG (PROTONIX) TAB PO SCH (08:39)
[2021-05-17] MEDS: SPIRONOLACTONE 25 MG (ALDACTONE) TAB PO SCH (08:39)
[2021-05-17] MEDS: KCL 10 MEQ TAB (MICRO K) PO SCH ×2 (08:39→17:16)
[2021-05-17] MEDS: TAMSULOSIN 0.4 MG (FLOMAX) CAP PO SCH ×2 (08:39→17:16)
[2021-05-17] MEDS: SENNA W/DOCUSATE (SENOKOT S) TABLET PO SCH ×2 (08:40→21:36)
[2021-05-17] MEDS: polyethylene glycoL POWDER 17 GM (MIRALAX) PACK PO SCH ×2 (08:40→21:35)
[2021-05-17] MEDS: DOCUSATE SODIUM 100 MG (COLACE) CAP PO SCH ×2 (08:40→21:35)
[2021-05-17] MEDS: cefTRIAXone 1 GM PRE-MIX 50 ML IV SCH ×2 (08:41→21:05)
--- NOTE | 2021-05-17 11:15 | Physical Therapy Daily Note ---
PT Daily Note-Current Subjective Pt agreeable. Pain rated 8/10 in LB and (R) groin. Mental Status Patient Orientation: Person, Place, Situation thoracic/lumbar brace in place upon arrival, pt ready for PT. Transfers SCALE: Activities may be completed with or without assistive devices. 5-Zejksjgams-wnvbjey completes the activity by him/herself with no assistance from a helper. 5-Set-up or Clean-up Assistance-helper sets up or cleans up; patient completes activity. [place] assists only prior to or following the activity. 4-Supervision or Touching Assistance-helper provides verbal cues and/or touching/steadying and/or contact guard assistance as patient completes activity. Assistance may be provided throughout the activity or intermittently. 3-Partial/Moderate Assistance-helper does LESS THAN HALF the effort. [place] lifts, holds or supports trunk or limbs, but provides less than half the effort. 2-Substantial/Maximal Assistance-helper does MORE THAN HALF the effort. [place] lifts or holds trunk or limbs and provides more than half the effort. 9-Xfhddwnlo-gymbye does ALL the effort. Patient does none of the effort to complete the activity. Or, the assistance of 2 or more helpers is required for the patient to complete the activity. If activity was not attempted, code reason: 7-Patient Refused. 9-Not Applicable-not attempted and the patient did not perform the activity before the current illness, exacerbation or injury. 10-Not Attempted due to Environmental Limitations-(lack of equipment, weather restraints, etc.). 88-Not Attempted due to Medical Conditions or Safety Concerns. Transfers mod (I) Weight Bearing Full Weight Bearing Full Weight Bearing back precautions Gait Training Gait Assistive Device: FWW Pt amb with FWW x 350ft at good steady speed, SBA Exercises Seated Therapy Exercises: Ankle pumps, Long arc quads, Hip flexion, Hip abd/add Seated Reps: 20 Assessment Current Status: Good Progress Pt anh very well despite high pain level. Pt ready for shower upon return to room Nurse aid present. Pt with call light and all needs met. PT Short Term Goals Short Term Goals Time Frame: May 16, 2021 Roll Left & Right: 4 (SBA) Sit to lyin (SA) Lying to sitting on side of be: 4 (SBA) Sit to stand: 4 (SBA) Chair/qsm-vf-kewzq transfer: 4 (SBA) Walk 10 feet: 4 (SBA) Walk 50 feet with two turns: 4 (SBA) Walk 150 feet: 4 (SBA) PT [facility] Goals [facility] Goals PT [facility] Goals Time Frame: May 30, 2021 Roll Left & Right (QC): 6 Sit to Lying (QC): 6 Lying-Sitting on Side/Bed(QC): 6 Sit to Stand (QC): 6 Chair/Xga-lq-Vcbdj Xfer(QC): 6 Toilet Transfer (QC): 6 Car Transfer (QC): 6 Does the Patient Walk: Yes Walk 10 feet (QC): 6 Walk 50ft with 2 Turns (QC): 6 Walk 150 ft (QC): 6 Walking 10ft on Uneven Surface: 6 1 Step (curb) (QC): 4 (SBA) 4 Steps (QC): 4 (SBA) 12 Steps (QC): 88 Picking up an Object (QC): 6 Wheel 50 feet with 2 turns (QC: 9 Wheel 150 feet: 9 PT Plan Treatment/Plan Treatment Plan: Continue Plan of Care Treatment Plan: Bed Mobility, Education, Functional Activity [place], Functional Strength, Group Therapy, Gait, Safety, Therapeutic Exercise, Transfers Treatment Duration: May 30, 2021 Frequency: At least 5 of 7 days/Wk (IRF) Estimated Hrs Per Day: 1.5 hours per day Patient and/or Family Agrees t: Yes Time/GCodes Time In: 950 Time Out: 1015 Total Billed Treatment Time: 25 Total Billed Treatment 1, ther ex 10', gait 15' BRADFORD RASMUSSEN CPTA May 17, 2021 11:15
[2021-05-17] MEDS: CLOPIDOGREL 75 MG (PLAVIX) TABLET PO SCH (12:05)
[2021-05-17] MEDS: APIXABAN 5 MG (ELIQUIS) TABLET PO SCH (12:05)
[2021-05-17] MEDS: metFORMIN 500 MG (GLUCOPHAGE) TAB PO SCH (17:15)
[2021-05-17 20:00] VITALS: BP 123/58
[2021-05-17] MEDS: ALPRAZolam 0.25 MG (XANAX) TAB PO PRN (21:06)
[2021-05-17] MEDS: BACLOFEN 10 MG (LIORESAL) TAB PO PRN (21:06)
[2021-05-17] MEDS: FLUTICASONE NASAL SPRAY (FLONASE) 16 GM BTL NS SCH (21:07)
[2021-05-18] MEDS: CATHETER FLUSH 10 ML SYR IV SCH ×4 (03:01→22:01)
[2021-05-18] MEDS: CYANOCOBALAMIN 1,000 MCG (VITAMIN B-12) TABLET PO SCH (07:16)
[2021-05-18] MEDS: BETHANECHOL 25 MG (URECHOLINE) TAB PO SCH ×4 (07:17→20:06)
[2021-05-18] MEDS: LINACLOTIDE 290 MCG (LINZESS) CAPSULE PO SCH (07:17)
[2021-05-18] MEDS: PRESERVISION AREDS SOFTGEL (BAUSH & LOMB) PO SCH (07:18)
[2021-05-18 07:22] VITALS: BP 118/63
[2021-05-18 07:52] LABS: BASOPHILS % (AUTO) 1 % (0-10); EOSINOPHILS # (AUTO) 0.1 10^3/uL (0.0-0.3); EOSINOPHILS % (AUTO) 2 % (0-10); HEMATOCRIT 32 % (40-54); HEMOGLOBIN 9.6 g/dL (13.3-17.7); LYMPHOCYTES # (AUTO) 1.5 10^3/uL (1.0-4.0); LYMPHOCYTES % (AUTO) 30 % (12-44); MEAN CORPUSCULAR HEMOGLOBIN 27 pg (25-34); MEAN CORPUSCULAR HGB CONC 31 g/dL (32-36); MEAN CORPUSCULAR VOLUME 90 fL (80-99); MEAN PLATELET VOLUME 9.5 fL (9.0-12.2); MONOCYTES # (AUTO) 0.3 10^3/uL (0.0-1.0); MONOCYTES % (AUTO) 6 % (0-12); NEUTROPHILS % (AUTO) 61 % (42-75); PLATELET COUNT 100 10^3/uL (130-400)
[2021-05-18 08:01] LABS: POTASSIUM 4.5 MMOL/L (3.6-5.0)
[2021-05-18 08:03] LABS: CALCIUM 8.9 MG/DL (8.5-10.1)
[2021-05-18 08:04] LABS: TOTAL PROTEIN 7.2 GM/DL (6.4-8.2)
[2021-05-18 08:06] LABS: BILIRUBIN,TOTAL 0.4 MG/DL (0.1-1.0)
--- NOTE | 2021-05-18 08:36 | PM&R Progress Note ---
Subjective HPI/CC On Admission Date Seen by Provider: May 18, 2021 Time Seen by Provider: 12:30 Subjective/Events-last exam 05/18/2021: Patient doing well Patient will be discharged at 11:00 for surgery N.p.o. at 0400 05/17/2021: Patient doing well Holding Plavix and Eliquis in preparation for surgery on Wednesday Patient denies any issues Bowels are moving well at bedside 05/16/21: Patient doing pretty well Spoke with Dr. BOSTON and we will transfer him to [place] on Wednesday to undergo surgery to close the wound Rocephin 1 g IV twice daily noted and tolerated No other concerns Bowels moving Updated patient and regarding lower extremity edema and the need to increase protein nutrition 05/15/2021: Patient doing well Pain is still an issue but baclofen is helped Rocephin 1 g twice daily Sleeping currently Checked meds and labs Bowels are moving Reviewed wound culture 05/14/2021: Pt is doing a lot better Had a large loose stool Wound vac will not be placed Dr. Jamison did probe the area of drainage and found it to probe all the way down to the hardware Rory Mckay and Dr. Boston were updated Cardiology was consulted for lower extremity edema He received a third iron infusion today 05/13/2021: Pt is doing okay Took his Linzess today for constipation Wound culture pending but later in the day and showed staph aureus and I reached out to Dr. BOSTON and he recommends wound VAC and may need a washout on Wednesday Rocephin maintained PICC line functioning well Baclofen helped with the pain 05/12/21: Pt is having a lot of pain Added Baclofen Plavix may be discontinued due to hemoglobin Dr. Farias has evaluated him Changed Zosyn and Vancomycin to Rocephin due to MSSA on culture at [facility] and blood cultures Dr. BOSTON request a wound culture on the wound drainage 05/11/2021: Patient doing really well Increased pain medication has helped Iron infusion and B12 supplement given Having urinary retention so started meds and performed in and out cath Check meds labs 05/10/2021: Patient doing really well Pain is an issue so I will change his hydrocodone to the 10/325 since he does have tolerance for that Awaiting iron level and B12 level suspect both low We'll discontinue catheter today and he is in agreement with that Checked meds and labs Appreciate Dr. Farias Review of Systems General: Fatigue, Malaise Objective Exam Vital Signs Vital Signs Date Time Temp Pulse Resp B/P (MAP) Pulse Ox O2 Delivery O2 Flow Rate FiO2 05/18/21 21:00 Room Air 05/18/21 20:38 36.4 81 18 109/58 (75) 96 Capillary Refill : General Appearance: No Apparent Distress, WD/WN, Chronically ill HEENT: PERRL/EOMI, Normal ENT Inspection, Pharynx Normal Neck: Full Range of Motion, Normal Inspection, Non Tender, Supple, Carotid Bruit Respiratory: Chest Non Tender, Lungs Clear, Normal Breath Sounds, No Accessory Muscle Use, No Respiratory Distress Cardiovascular: No Edema, No Gallop, No JVD, No Murmur, Normal Peripheral Pulses, Irregularly Irregular Gastrointestinal: Normal Bowel Sounds, No Organomegaly, No Pulsatile Mass, Non Tender, Soft Back: CVA Tenderness (L), CVA Tenderness (R), Decreased Range of Motion, Vertebral Tenderness Extremity: Normal Capillary Refill, Normal Inspection, Normal Range of Motion, Non Tender, No Calf Tenderness, No Pedal Edema Neurologic/Psychiatric: Alert, Oriented x3, No Motor/Sensory Deficits, Normal Mood/Affect, 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 [facility] Transfers Therapy Code Descriptions/Definitions Functional [place] Measure: 0=Not Assessed/NA 4=Minimal Assistance 1=Total Assistance 5=Supervision or Setup 2=Maximal Assistance 6=Modified [place] 3=Moderate Assistance 7=Complete IndependenceSCALE: Activities may be completed with or without assistive devices. 8-Iuzdvqgscs-vhjslzu completes the activity by him/herself with no assistance from a helper. 5-Set-up or Clean-up Assistance-helper sets up or cleans up; patient completes activity. [place] assists only prior to or following the activity. 4-Supervision or Touching Assistance-helper provides verbal cues and/or touching/steadying and/or contact guard assistance as patient completes activi ty. Assistance may be provided throughout the activity or intermittently. 3-Partial/Moderate Assistance-helper does LESS THAN HALF the effort. [place] lifts, holds or supports trunk or limbs, but provides less than half the effort. 2-Substantial/Maximal Assistance-helper does MORE THAN HALF the effort. [place] lifts or holds trunk or limbs and provides more than half the effort. 2-Jzcbgubxe-jkugam does ALL the effort. Patient does none of the effort to complete the activity. Or, the assistance of 2 or more helpers is required for the patient to complete the activity. If activity was not attempted, code reason: 7-Patient Refused. 9-Not Applicable-not attempted and the patient did not perform the activity before the current illness, exacerbation or injury. 10-Not Attempted due to Environmental Limitations-(lack of equipment, weather restraints, etc.). 88-Not Attempted due to Medical Conditions or Safety Concerns. Roll Left to Right (QC): 6 Sit to Lying (QC): 6 Sit to Stand (QC): 6 Chair/Iww-kl-Qejuz Xfer(QC): 6 Car Transfer (QC): 4 Gait Training Does the Patient Walk?: Yes Distance: 150' x2 Walk 10 feet (QC): 6 Walk 50 ft with 2 Turns(QC): 6 Walk 150 ft (QC): 5 Walking 10ft/uneven surface-QC: 4 Gait Persons Needed: 1 Gait Assistive Device: FWW Wheelchair Training Does the Pt Use a Wheelchair?: No Wheel 50 ft with 2 turns (QC): 9 Wheel 150 ft (QC): 9 Stair Training #of Steps: 1 1 Step (curb) (QC): 4 4 Steps (QC): 88 12 Steps (QC): 88 Balance Picking up an Object (QC): 4 (CGA using recreational specialist) ADL-Treatment Eating (QC): 6 Oral Hygiene (QC): 4 (pt reports he only rinses dentures. 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 Aspiration pneumonia status post on Zosyn and Vanco for 6 days discontinued 05/11/2021 due to MSSA on blood cultures placed on Rocephin twice daily Postoperative anemia received 2 units of blood 2 weeks ago receiving iron infusions and B12 supplement Atrial fibrillation with variation in rate consulting cardiology CAD previous stents maintained on Plavix Hypertension Hyperlipidemia Li cath in place discontinued 05/10/2021 now having retention on 05/11/2021 so started on Urecholine and Flomax and performing in and out caths now doing well Bacteremia with gram-positive cocci PICC line was placed source is operative wound 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 BOSTON on Wednesday Plan: Pain control Li cath will be discontinued soon PICC line IV antibiotics Aggressive rehab 05/10/2021: IV antibiotics DC catheter Appreciate Dr. Farias Increase pain medication 05/11/2021: IV antibiotics Urinary retention management 05/12/2021: Wound culture per Dr. Boston Maintain Rocephin May need I&D of the wound 05/13/2021: Maintain Rocephin Baclofen helpful Wound VAC may be needed 05/14/2021: Wound VAC not an option Appreciate Dr. Jamison Await plan per Dr. Boston Change Rocephin to twice a day 05/15/2021: Supportive care Rocephin Continue therapy 05/16/2021: Surgery on Wednesday Discharge from rehab and he will go to [place] Continue Rocephin twice daily 05/17/2021: Supportive care Surgery on Wednesday Rocephin twice daily 05/18/2021: Discharge tomorrow to surgery (1) Spondylosis of lumbar spine with myelopathy DIANE DAMIAN DO May 18, 2021 08:36
[2021-05-18] MEDS: KCL 10 MEQ TAB (MICRO K) PO SCH ×2 (09:13→17:37)
[2021-05-18] MEDS: TAMSULOSIN 0.4 MG (FLOMAX) CAP PO SCH ×2 (09:13→17:37)
[2021-05-18] MEDS: SPIRONOLACTONE 25 MG (ALDACTONE) TAB PO SCH (09:13)
[2021-05-18] MEDS: meTOproloL SUCCINATE 50 MG (TOPROL XL) TAB PO SCH ×2 (09:13→20:05)
[2021-05-18] MEDS: FUROSEMIDE 40 MG (LASIX) TAB PO SCH (09:13)
[2021-05-18] MEDS: PANTOPRAZOLE 40 MG (PROTONIX) TAB PO SCH (09:13)
[2021-05-18] MEDS: DOCUSATE SODIUM 100 MG (COLACE) CAP PO SCH ×2 (09:13→22:17)
[2021-05-18] MEDS: IRON SUCROSE 200 MG/10 ML (VENOFER) VIAL IV SCH (09:14)
[2021-05-18] MEDS: SENNA W/DOCUSATE (SENOKOT S) TABLET PO SCH ×2 (09:14→22:17)
[2021-05-18] MEDS: polyethylene glycoL POWDER 17 GM (MIRALAX) PACK PO SCH ×2 (09:14→22:17)
[2021-05-18] MEDS: cefTRIAXone 1 GM PRE-MIX 50 ML IV SCH ×2 (09:47→22:00)
[2021-05-18] MEDS: metFORMIN 500 MG (GLUCOPHAGE) TAB PO SCH (17:37)
[2021-05-18] MEDS: BACLOFEN 10 MG (LIORESAL) TAB PO PRN (20:06)
[2021-05-18] MEDS: FLUTICASONE NASAL SPRAY (FLONASE) 16 GM BTL NS SCH (20:06)
[2021-05-18 20:38] VITALS: BP 109/58
[2021-05-18] MEDS: ALPRAZolam 0.25 MG (XANAX) TAB PO PRN (23:34)
[2021-05-19] MEDS: CATHETER FLUSH 10 ML SYR IV SCH (06:35)
[2021-05-19] MEDS: BETHANECHOL 25 MG (URECHOLINE) TAB PO SCH (06:36)
[2021-05-19] MEDS ORDERED: BETH25TA2 PO (06:40)
[2021-05-19] MEDS ORDERED: APIX5TAB PO (06:40)
[2021-05-19] MEDS ORDERED: CEFT1PIG IV (06:40)
[2021-05-19] MEDS ORDERED: CLOP75TA69 PO (06:40)
[2021-05-19] MEDS ORDERED: TMSL.4C PO (06:40)
[2021-05-19] MEDS ORDERED: ACHYD1T PO (06:40)
[2021-05-19] MEDS ORDERED: BACL10TA PO (06:40)
[2021-05-19] MEDS ORDERED: POTA-160 PO (06:40)
[2021-05-19] MEDS ORDERED: CYAN-41 PO (06:40)
--- NOTE | 2021-05-19 06:41 | Discharge Summary ---
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 Aspiration pneumonia status post on Zosyn and Vanco for 6 days discontinued 05/11/2021 due to MSSA on blood cultures placed on Rocephin twice daily Postoperative anemia received 2 units of blood 2 weeks ago receiving iron infusions and B12 supplement Atrial fibrillation with variation in rate consulting cardiology CAD previous stents maintained on Plavix Hypertension Hyperlipidemia Li cath in place discontinued 05/10/2021 now having retention on 05/11/2021 so started on Urecholine and Flomax and performing in and out caths now doing well Bacteremia with gram-positive cocci PICC line was placed source is operative wound 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 BOSTON on Wednesday Plan: Pain control Li cath will be discontinued soon PICC line IV antibiotics Aggressive rehab 05/10/2021: IV antibiotics DC catheter Appreciate Dr. Farias Increase pain medication 05/11/2021: IV antibiotics Urinary retention management 05/12/2021: Wound culture per Dr. Boston Maintain Rocephin May need I&D of the wound 05/13/2021: Maintain Rocephin Baclofen helpful Wound VAC may be needed 05/14/2021: Wound VAC not an option Appreciate Dr. Jamison Await plan per Dr. Boston Change Rocephin to twice a day 05/15/2021: Supportive care Rocephin Continue therapy 05/16/2021: Surgery on Wednesday Discharge from rehab and he will go to [facility] Continue Rocephin twice daily 05/17/2021: Supportive care Surgery on Wednesday Rocephin twice daily (1) Spondylosis of lumbar spine with myelopathy Discharge Summary Discharge Physical Examination Allergies: Coded Allergies: No Known Drug Allergies (Unverified , 03/21/20) Vitals & I&Os Vital Signs Date Time Temp Pulse Resp B/P (MAP) Pulse Ox O2 Delivery O2 Flow Rate FiO2 05/19/21 09:00 Room Air 05/19/21 08:00 36.3 82 18 103/56 (72) 97 General Appearance: Alert, Oriented X3, Cooperative Respiratory: Clear to Auscultation Cardiovascular: Regular Rate Neuro: Normal Gait, Normal Speech, Strength at 5/5 X4 Ext Psych/Mental Status: Mental Status NL Hospital Course Was the Problem List Reviewed?: Yes Pt had an uneventful 11 day hospital course after he was admitted for debility f ollowing lumbar spine surgery with slow recovery and failure at 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 He did have blood cultures positive for staph aureus. He did start having wound drainage that was cultured the same staph aureus grew out. He was narrowed down to Rocephin 1g IV Q 12 hours. Pt was deemed stable for discharge to [facility] for surgery to close the non healing wound. His hemoglobin had a good return of function with IV iron infusions at 9.6 hemoglobin. Pt was deemed stabled Labs (last 24 hrs) Laboratory Tests 05/09/21 14:55: Sodium Level 136, Potassium Level 3.4L, Chloride Level 109H, Carbon Dioxide Level 15L, Anion Gap 12, Blood Urea Nitrogen 19H, Creatinine 1.12, Estimat Glomerular Filtration Rate 67, BUN/Creatinine Ratio 17, Glucose Level 139H, Calcium Level 7.4L, Iron Level 9L, Vitamin B12 Level 276 05/10/21 05:20: Sodium Level 135, Potassium Level 3.3L, Chloride Level 111H, Carbon Dioxide Level 17L, Anion Gap 7, Blood Urea Nitrogen 15, Creatinine 0.96, Estimat Glomerular Filtration Rate 81, BUN/Creatinine Ratio 16, Glucose Level 100, Calcium Level 6.7L, White Blood Count 3.3L, Red Blood Count 2.61L, Hemoglobin 7.3L, Hematocrit 23L, Mean Corpuscular Volume 87, Mean Corpuscular Hemoglobin 28, Mean Corpuscular Hemoglobin Concent 32, Red Cell Distribution Width 18.6H, Platelet Count 67L, Mean Platelet Volume 10.0, Immature Granulocyte % (Auto) 1, Neutrophils (%) (Auto) 73, Lymphocytes (%) (Auto) 16, Monocytes (%) (Auto) 9, Eosinophils (%) (Auto) 2, Basophils (%) (Auto) 0, Neutrophils # (Auto) 2.4, Lymphocytes # (Auto) 0.5L, Monocytes # (Auto) 0.3, Eosinophils # (Auto) 0.1, Basophils # (Auto) 0.0, Immature Granulocyte # (Auto) 0.0, Percent Immature Platelet Fraction 1.4, Corrected Calcium 8.1L, Magnesium Level 1.8, Total Bilirubin 0.5, Aspartate Amino Transf (AST/SGOT) 10, Alanine Aminotransferase (ALT/SGPT) 9, Alkaline Phosphatase 66, Total Protein 5.0L, Albumin 2.2L 05/12/21 05:35: Sodium Level 136, Potassium Level 3.6, Chloride Level 110H, Carbon Dioxide Level 17L, Anion Gap 9, Blood Urea Nitrogen 11, Creatinine 0.90, Estimat Glomerular Filtration Rate 87, BUN/Creatinine Ratio 12, Glucose Level 116H, Calcium Level 6.6L, White Blood Count 2.6L, Red Blood Count 2.96L, Hemoglobin 8.0L, Hematocrit 26L, Mean Corpuscular Volume 87, Mean Corpuscular Hemoglobin 27, Mean Corpuscular Hemoglobin Concent 31L, Red Cell Distribution Width 18.6H, Platelet Count 64L, Mean Platelet Volume 9.4, Immature Granulocyte % (Auto) 1, Ne utrophils (%) (Auto) 42, Lymphocytes (%) (Auto) 40, Monocytes (%) (Auto) 15H, Eosinophils (%) (Auto) 2, Basophils (%) (Auto) 0, Neutrophils # (Auto) 1.1L, Lymphocytes # (Auto) 1.0, Monocytes # (Auto) 0.4, Eosinophils # (Auto) 0.1, Basophils # (Auto) 0.0, Immature Granulocyte # (Auto) 0.0, Percent Immature Platelet Fraction 1.5, Corrected Calcium 8.0L, Magnesium Level 1.7, Total Bilirubin 0.4, Aspartate Amino Transf (AST/SGOT) 13, Alanine Aminotransferase (ALT/SGPT) 10, Alkaline Phosphatase 92, Total Protein 5.3L, Albumin 2.3L 05/13/21 06:44: Sodium Level 137, Potassium Level 4.0, Chloride Level 110H, Carbon Dioxide Level 16L, Anion Gap 11, Blood Urea Nitrogen 11, Creatinine 1.01, Estimat Glomerular Filtration Rate 76, BUN/Creatinine Ratio 11, Glucose Level 128H, Calcium Level 6.7L, White Blood Count 2.7L, Red Blood Count 2.96L, Hemoglobin 7.9L, Hematocrit 26L, Mean Corpuscular Volume 87, Mean Corpuscular Hemoglobin 27, Mean Corpuscular Hemoglobin Concent 31L, Red Cell Distribution Width 18.7H, Platelet Count 73L, Mean Platelet Volume 10.0, Immature Granulocyte % (Auto) 0, Neutrophils (%) (Auto) 44, Lymphocytes (%) (Auto) 42, Monocytes (%) (Auto) 12, Eosinophils (%) (Auto) 2, Basophils (%) (Auto) 0, Neutrophils # (Auto) 1.2L, Lymphocytes # (Auto) 1.1, Monocytes # (Auto) 0.3, Eosinophils # (Auto) 0.1, Basophils # (Auto) 0.0, Immature Granulocyte # (Auto) 0.0, Percent Immature Platelet Fraction 1.7, Corrected Calcium 7.9L, Total Bilirubin 0.4, Aspartate Amino Transf (AST/SGOT) 10, Alanine Aminotransferase (ALT/SGPT) 10, Alkaline Phosphatase 86, Total Protein 5.7L, Albumin 2.5L, Procalcitonin 0.41H 05/14/21 18:10: Prealbumin 9.6L 05/16/21 09:30: White Blood Count 4.2L, Red Blood Count 2.85L, Hemoglobin 7.7L, Hematocrit 26L, Mean Corpuscular Volume 91, Mean Corpuscular Hemoglobin 27, Mean Corpuscular Hemoglobin Concent 30L, Red Cell Distribution Width 19.3H, Platelet Count 67L, Mean Platelet Volume 8.9L, Immature Granulocyte % (Auto) 1, Neutrophils (%) (Auto) 68, Lymphocytes (%) (Auto) 24, Monocytes (%) (Auto) 6, Eosinophils (%) (Auto) 1, Basophils (%) (Auto) 1, Neutrophils # (Auto) 2.8, Lymphocytes # (Auto) 1.0, Monocytes # (Auto) 0.2, Eosinophils # (Auto) 0.0, Basophils # (Auto) 0.0, Immature Granulocyte # (Auto) 0.1, Percent Immature Platelet Fraction 1.5, Sodium Level 138, Potassium Level 4.5, Chloride Level 113H, Carbon Dioxide Level 19L, Anion Gap 6, Blood Urea Nitrogen 7, Creatinine 0.93, Estimat Glomerular Filtration Rate 84, BUN/Creatinine Ratio 8, Glucose Level 135H, Calcium Level 7.5L, Corrected Calcium 8.7, Magnesium Level 1.9, Total Bilirubin 0.3, Aspartate Amino Transf (AST/SGOT) 11, Alanine Aminotransferase (ALT/SGPT) 8, Alkaline Phosphatase 93, Total Protein 5.7L, Albumin 2.5L 05/18/21 07:40: White Blood Count 5.0, Red Blood Count 3.51L, Hemoglobin 9.6#L, Hematocrit 32L, Mean Corpuscular Volume 90, Mean Corpuscular Hemoglobin 27, Mean Corpuscular Hemoglobin Concent 31L, Red Cell Distribution Width 20.5H, Platelet Count 100L, Mean Platelet Volume 9.5, Immature Granulocyte % (Auto) 1, Neutrophils (%) (Auto) 61, Lymphocytes (%) (Auto) 30, Monocytes (%) (Auto) 6, Eosinophils (%) (Auto) 2, Basophils (%) (Auto) 1, Neutrophils # (Auto) 3.0, Lymphocytes # (Auto) 1.5, Monocytes # (Auto) 0.3, Eosinophils # (Auto) 0.1, Basophils # (Auto) 0.0, Immature Granulocyte # (Auto) 0.1, Percent Immature Platelet Fraction 1.8, Sodium Level 136, Potassium Level 4.5, Chloride Level 107, Carbon Dioxide Level 20L, Anion Gap 9, Blood Urea Nitrogen 10, Creatinine 1.00, Estimat Glomerular Filtration Rate 77, BUN/Creatinine Ratio 10, Glucose Level 113H, Calcium Level 8.9, Corrected Calcium 9.7, Total Bilirubin 0.4, Aspartate Amino Transf (AST/SGOT) 14, Alanine Aminotransferase (ALT/SGPT) 13, Alkaline Phosphatase 129, Total Protein 7.2, Albumin 3.0L Microbiology 05/12/21 Gram Stain - Final, Complete 05/12/21 Wound Culture - Final, Complete Staphylococcus aureus Pending Labs Microbiology Date/Time Source Procedure Growth Status 05/12/21 17:40 Incision Back Gram Stain - Final Complete 05/12/21 17:40 Wound Culture - Final Staphylococcus aureus Complete Laboratory Tests 05/09/21 14:55: Sodium Level 136, Potassium Level 3.4, Chloride Level 109, Carbon Dioxide Level 15, Anion Gap 12, Blood Urea Nitrogen 19, Creatinine 1.12, Estimat Glomerular Filtration Rate 67, BUN/Creatinine Ratio 17, Glucose Level 139, Calcium Level 7.4, Iron Level 9, Vitamin B12 Level 276 05/10/21 05:20: Sodium Level 135, Potassium Level 3.3, Chloride Level 111, Carbon Dioxide Level 17, Anion Gap 7, Blood Urea Nitrogen 15, Creatinine 0.96, Estimat Glomerular Filtration Rate 81, BUN/Creatinine Ratio 16, Glucose Level 100, Calcium Level 6.7, White Blood Count 3.3, Red Blood Count 2.61, Hemoglobin 7.3, Hematocrit 23, Mean Corpuscular Volume 87, Mean Corpuscular Hemoglobin 28, Mean Corpuscular Hemoglobin Concent 32, Red Cell Distribution Width 18.6, Platelet Count 67, Mean Platelet Volume 10.0, Immature Granulocyte % (Auto) 1, Neutrophils (%) (Auto) 73, Lymphocytes (%) (Auto) 16, Monocytes (%) (Auto) 9, Eosinophils (%) (Auto) 2, Basophils (%) (Auto) 0, Neutrophils # (Auto) 2.4, Lymphocytes # (Auto) 0.5, Monocytes # (Auto) 0.3, Eosinophils # (Auto) 0.1, Basophils # (Auto) 0.0, Immature Granulocyte # (Auto) 0.0, Percent Immature Platelet Fraction 1.4, Corrected Calcium 8.1, Magnesium Level 1.8, Total Bilirubin 0.5, Aspartate Amino Transf (AST/SGOT) 10, Alanine Aminotransferase (ALT/SGPT) 9, Alkaline Phosphatase 66, Total Protein 5.0, Albumin 2.2 05/12/21 05:35: Sodium Level 136, Potassium Level 3.6, Chloride Level 110, Carbon Dioxide Level 17, Anion Gap 9, Blood Urea Nitrogen 11, Creatinine 0.90, Estimat Glomerular Filtration Rate 87, BUN/Creatinine Ratio 12, Glucose Level 116, Calcium Level 6.6, White Blood Count 2.6, Red Blood Count 2.96, Hemoglobin 8.0, Hematocrit 26, Mean Corpuscular Volume 87, Mean Corpuscular Hemoglobin 27, Mean Corpuscular Hemoglobin Concent 31, Red Cell Distribution Width 18.6, Platelet Count 64, Mean Platelet Volume 9.4, Immature Granulocyte % (Auto) 1, Neutrophils (%) (Auto) 42, Lymphocytes (%) (Auto) 40, Monocytes (%) (Auto) 15, Eosinophils (%) (Auto) 2, Basophils (%) (Auto) 0, Neutrophils # (Auto) 1.1, Lymphocytes # (Auto) 1.0, Monocytes # (Auto) 0.4, Eosinophils # (Auto) 0.1, Basophils # (Auto) 0.0, Immature Granulocyte # (Auto) 0.0, Percent Immature Platelet Fraction 1.5, Cor rected Calcium 8.0, Magnesium Level 1.7, Total Bilirubin 0.4, Aspartate Amino Transf (AST/SGOT) 13, Alanine Aminotransferase (ALT/SGPT) 10, Alkaline Phosphatase 92, Total Protein 5.3, Albumin 2.3 05/13/21 06:44: Sodium Level 137, Potassium Level 4.0, Chloride Level 110, Carbon Dioxide Level 16, Anion Gap 11, Blood Urea Nitrogen 11, Creatinine 1.01, Estimat Glomerular Filtration Rate 76, BUN/Creatinine Ratio 11, Glucose Level 128, Calcium Level 6.7, White Blood Count 2.7, Red Blood Count 2.96, Hemoglobin 7.9, Hematocrit 26, Mean Corpuscular Volume 87, Mean Corpuscular Hemoglobin 27, Mean Corpuscular Hemoglobin Concent 31, Red Cell Distribution Width 18.7, Platelet Count 73, Mean Platelet Volume 10.0, Immature Granulocyte % (Auto) 0, Neutrophils (%) (Auto) 44, Lymphocytes (%) (Auto) 42, Monocytes (%) (Auto) 12, Eosinophils (%) (Auto) 2, Basophils (%) (Auto) 0, Neutrophils # (Auto) 1.2, Lymphocytes # (Auto) 1.1, Monocytes # (Auto) 0.3, Eosinophils # (Auto) 0.1, Basophils # (Auto) 0.0, Immatu re Granulocyte # (Auto) 0.0, Percent Immature Platelet Fraction 1.7, Corrected Calcium 7.9, Total Bilirubin 0.4, Aspartate Amino Transf (AST/SGOT) 10, Alanine Aminotransferase (ALT/SGPT) 10, Alkaline Phosphatase 86, Total Protein 5.7, Albumin 2.5, Procalcitonin 0.41 05/14/21 18:10: Prealbumin 9.6 05/16/21 09:30: White Blood Count 4.2, Red Blood Count 2.85, Hemoglobin 7.7, Hematocrit 26, Mean Corpuscular Volume 91, Mean Corpuscular Hemoglobin 27, Mean Corpuscular Hemo globin Concent 30, Red Cell Distribution Width 19.3, Platelet Count 67, Mean Platelet Volume 8.9, Immature Granulocyte % (Auto) 1, Neutrophils (%) (Auto) 68, Lymphocytes (%) (Auto) 24, Monocytes (%) (Auto) 6, Eosinophils (%) (Auto) 1, Basophils (%) (Auto) 1, Neutrophils # (Auto) 2.8, Lymphocytes # (Auto) 1.0, Monocytes # (Auto) 0.2, Eosinophils # (Auto) 0.0, Basophils # (Auto) 0.0, Immature Granulocyte # (Auto) 0.1, Percent Immature Platelet Fraction 1.5, Sodium Level 138, Potassium Level 4.5, Chloride Level 113, Carbon Dioxide Level 19, Anion Gap 6, Blood Urea Nitrogen 7, Creatinine 0.93, Estimat Glomerular Filtration Rate 84, BUN/Creatinine Ratio 8, Glucose Level 135, Calcium Level 7.5, Corrected Calcium 8.7, Magnesium Level 1.9, Total Bilirubin 0.3, Aspartate Amino Transf (AST/SGOT) 11, Alanine Aminotransferase (ALT/SGPT) 8, Alkaline Phosphatase 93, Total Protein 5.7, Albumin 2.5 05/18/21 07:40: White Blood Count 5.0, Red Blood Count 3.51, Hemoglobin 9.6, Hematocrit 32, Mean Corpuscular Volume 90, Mean Corpuscular Hemoglobin 27, Mean Corpuscular Hemoglobin Concent 31, Red Cell Distribution Width 20.5, Platelet Count 100, Mean Platelet Volume 9.5, Immature Granulocyte % (Auto) 1, Neutrophils (%) (Auto) 61, Lymphocytes (%) (Auto) 30, Monocytes (%) (Auto) 6, Eosinophils (%) (Auto) 2, Basophils (%) (Auto) 1, Neutrophils # (Auto) 3.0, Lymphocytes # (Auto) 1.5, Monocytes # (Auto) 0.3, Eosinophils # (Auto) 0.1, Basophils # (Auto) 0.0, Immature Granulocyte # (Auto) 0.1, Percent Immature Platelet Fraction 1.8, Sodium Level 136, Potassium Level 4.5, Chloride Level 107, Carbon Dioxide Level 20, Anion Gap 9, Blood Urea Nitrogen 10, Creatinine 1.00, Estimat Glomerular Filtration Rate 77, BUN/Creatinine Ratio 10, Glucose Level 113, Calcium Level 8.9, Corrected Calcium 9.7, Total Bilirubin 0.4, Aspartate Amino Transf (AST/SGOT) 14, Alanine Aminotransferase (ALT/SGPT) 13, Alkaline Phosphatase 129, Total Protein 7.2, Albumin 3.0 Discharge Home Medications: Active Scripts Active Vitamin B-12 (Cyanocobalamin (Vitamin B-12)) 1,000 Mcg Tablet 1,000 Mcg PO DAILY@0700 7 Days Klor-Con 10 (Potassium Chloride) 10 Meq Tablet.er 10 Meq PO BID WITH MEALS 7 Days HYDROcodone/APAP 10/325 TABLET (Acetaminophen/Hydrocodone Bitart) 1 Ea Tab 1-2 Ea PO Q4H PRN 7 Days Baclofen 10 Mg Tablet 10 Mg PO TID PRN 7 Days Flomax (Tamsulosin HCl) 0.4 Mg Cap 0.4 Mg PO BIDPC 7 Days Bethanechol Chloride 25 Mg Tablet 25 Mg PO ACHS 7 Days Ceftriaxone 1 gm-D5w Bag (Ceftriaxone Na/Dextrose,Iso) 1 Gm/50 Ml Piggyback 1 Gm IV BID 30 Days Plavix (Clopidogrel Bisulfate) 75 Mg Tablet 75 Mg PO DAILY 4 Days on hold for surgery Eliquis (Apixaban) 5 Mg Tablet 5 Mg PO BID 4 Days on hold for surgery Reported Naloxone HCl 4 Mg Trinity 1 Trinity NA UD PRN EMERGENCY USE ONLY- ADMINISTER 1 SPRAY IN 1 NOSTRIL- MAY REPEAT IN ALTERNATIN NOSE EVERY 2-3 MINUTES UNTIL RESPONSIVE OR EMS ARRIVES Revlimid (Lenalidomide) 10 Mg Capsule 10 Mg PO HS Diltiazem 24Hr ER (Diltiazem HCl) 300 Mg Cap.er.24h 300 Mg PO DAILY Voltaren Arthritis Pain (Diclofenac Sodium) 20 Gm Gel..gram. 1 Applic TP Q6H PRN APPLY TO THE AFFECTED AREA Preservision Areds Tablet (Vit A/Vit C/Vit E/Zinc/Copper) 1 Each Tablet 1 Each PO DAILY Spironolactone 25 Mg Tablet 25 Mg PO DAILY Miralax (Polyethylene Glycol 3350) 17 Gm Powd.pack 17 Gm PO DAILY PRN Pantoprazole Sodium 40 Mg Tablet.dr 40 Mg PO DAILY Nitroglycerin 0.4 Mg Tab.subl 0.4 Mg SL UD PRN Metoprolol Succinate 50 Mg Tab.er.24h 50 Mg PO BID Metformin HCl 500 Mg Tablet 500 Mg PO HS Linzess (Linaclotide) 290 Mcg Capsule 290 Mcg PO DAILY Furosemide 40 Mg Tablet 40 Mg PO DAILY Flonase Allergy Relief (Fluticasone Propionate) 9.9 Ml Trinity.susp 2 Trinity NSEACH HS Dicyclomine HCl 10 Mg Capsule 10 Mg PO QID PRN Proair Hfa (Albuterol Sulfate) 1 Puff Puff 2 Puff IH Q4H PRN Instructions to patient/family Please see electronic discharge instructions given to patient. Diagnosis/Problems Diagnosis/Problems (1) Spondylosis of lumbar spine with myelopathy DIANE DAMIAN DO May 19, 2021 06:41
[2021-05-19] MEDS: PRESERVISION AREDS SOFTGEL (BAUSH & LOMB) PO SCH (06:46)
[2021-05-19] MEDS: LINACLOTIDE 290 MCG (LINZESS) CAPSULE PO SCH (06:46)
[2021-05-19] MEDS: CYANOCOBALAMIN 1,000 MCG (VITAMIN B-12) TABLET PO SCH (06:46)
[2021-05-19 08:00] VITALS: BP 103/56
[2021-05-19] MEDS: cefTRIAXone 1 GM PRE-MIX 50 ML IV SCH (08:14)
[2021-05-19] MEDS: PANTOPRAZOLE 40 MG (PROTONIX) TAB PO SCH (08:14)
[2021-05-19] MEDS: meTOproloL SUCCINATE 50 MG (TOPROL XL) TAB PO SCH (08:15)
--- NOTE | 2021-05-19 08:39 | Cardiology Progress Note ---
Subjective Date Seen by Provider: May 19, 2021 Time Seen by Provider: 08:37 Subjective/Events-last exam Patient is sitting up in chair, no new complaints. Denies any chest pain Review of Systems General: No Chills, No Night Sweats, No Fatigue, No Malaise, No Appetite, No Ot her HEENT: No Head Aches, No Visual Changes, No Eye Pain, No Ear Pain, No Dysphasia, No Sinus Congestion, No Post Nasal Drip, No Sore Throat, No Other Pulmonary: No Dyspnea, No Cough, No Pleuritic Chest Pain, No Other Cardiovascular: Edema Objective-Cardiology Exam Last Set of Vital Signs Vital Signs 05/19/21 08:00 Temp 36.3 Pulse 82 Resp 18 B/P (MAP) 103/56 (72) Pulse Ox 97 O2 Delivery Room Air I&O Intake and Output 05/19/21 00:00 Intake Total 1750 ml Output Total 3600 ml Balance -1850 ml Intake Oral 1700 ml IV Total 50 ml Output Urine Total 3600 ml General: Alert, Oriented X3, Cooperative HEENT: Atraumatic, PERRLA Neck: Supple, No JVD, No Thyromegaly Lungs: Clear to Auscultation, Normal Air Movement Heart: Regular Rate, Normal S1, Normal S2, No Murmurs Abdomen: Normal Bowel Sounds, Soft, No Tenderness, No Hepatosplenomegaly, No Masses Extremities: No Clubbing, No Cyanosis, Normal Pulses, No Tenderness/Swelling, Other (Mild pedal edema) Skin: No Rashes, No Breakdown, No Significant Lesion Neuro: Normal Speech, Normal Tone, Sensation Intact Psych/Mental Status: Mental Status NL, Mood NL A/P-Cardiology Admission Diagnosis Atrial fibrillation Coronary artery disease Hypertension Anemia Assessment/Plan Atrial fibrillation with controlled ventricular rate, maintained on Cardizem CD 300 mg daily and Toprol-XL 50 mg twice daily. Having few episodes of borderline tachycardia, continue on current medications and monitor 2D echo was done on May 12, 2021 showing normal LV size with EF 50 to 55%, biatrial enlargement, PA pressure 60 to 65 mmHg, aortic valve sclerosis. Pedal edema, chronic, using compression socks, maintained on Lasix 40 mg daily and Aldactone. Responded to Zaroxolyn, swelling improved today, continue to monitor. [id number] score 4, yearly risk of stroke without oral anticoagulation is 4%, maintained on Eliquis. Anemia, monitor H&H. Coronary artery disease, history of CABG x3 done in 2013, reported that he had 2 stents placed in 2018. He is currently asymptomatic. Maintained on Plavix. Continue to monitor Lumbar spine surgery on April 21, 2021, slow recovery, having myelopathy and spondylosis and generalized weakness and back pain. Aspiration pneumonia, receiving Zosyn and vancomycin Postoperative anemia, managed by medical team, monitor H&H Hypertension, continue to monitor blood pressure Hyperlipidemia, monitor lipids Bacteremia, gram-positive cocci. PICC line was placed. Currently on antibiotic. 2D Echo done showed no evidence of vegetation. OK for discharge from cardiology standpoint. F/u with his primary coal trammer, Dr. Lott, in 1-2 weeks. Supervisory-Addendum Brief Supervisory Addendum Participated in pt care: history, MDM, physical Personally performed: exam, history, MDM Care discussed with: XAVIER Results interpretation: Verified all documentation Notes: Patient was seen and evaluated with Perez, examination performed, management plan was discussed, agree with the current scribed note, I made few changes to the note using Italic font Patient was sitting in a chair comfortably, reporting improvement in the edema Advised to follow-up with his primary coal trammer Continue on Lasix and Aldactone and monitor. Okay for discharge from cardiology standpoint PEREZ MONTIEL May 19, 2021 08:39 LAQUITA JAMIL MD May 19, 2021 09:00
--- NOTE | 2021-05-19 09:23 | Occupational Ther Daily Note ---
OT Current Status-Daily Note Subjective At OT arrival, pt reports discharging at 0830 for scheduled surgery. Per RN, surgery had been pushed back and pt was now discharging at 1000. Appearance Pt left sitting in recliner, all needs within reach. ADL-Treatment Therapy Code Descriptions/Definitions Functional [place] Measure: 0=Not Assessed/NA 4=Minimal Assistance 1=Total Assistance 5=Supervision or Setup 2=Maximal Assistance 6=Modified [place] 3=Moderate Assistance 7=Complete IndependenceSCALE: Activities may be completed with or without assistive devices. 6-Sbgxaygfvz-egfnmne completes the activity by him/herself with no assistance from a helper. 5-Set-up or Clean-up Assistance-helper sets up or cleans up; patient completes activity. [place] assists only prior to or following the activity. 4-Supervision or Touching Assistance-helper provides verbal cues and/or touching/steadying and/or contact guard assistance as patient completes activity. Assistance may be provided throughout the activity or intermittently. 3-Partial/Moderate Assistance-helper does LESS THAN HALF the effort. [place] lifts, holds or supports trunk or limbs, but provides less than half the effort. 2-Substantial/Maximal Assistance-helper does MORE THAN HALF the effort. [place] lifts or holds trunk or limbs and provides more than half the effort. 5-Kbffxreqo-lahthy does ALL the effort. Patient does none of the effort to complete the activity. Or, the assistance of 2 or more helpers is required for the patient to complete the activity. If activity was not attempted, code reason: 7-Patient Refused. 9-Not Applicable-not attempted and the patient did not perform the activity before the current illness, exacerbation or injury. 10-Not Attempted due to Environmental Limitations-(lack of equipment, weather restraints, etc.). 88-Not Attempted due to Medical Conditions or Safety Concerns. Eating (QC): 6 Oral Hygiene (QC): 6 Shower/Bathe Self (QC): 5 (per clinical judgment) Upper Body Dressing (QC): 6 Lower Body Dressing (QC): 3 (Min a for RLE only, declines using AE, family can assist) On/Off Footwear: 2 (declines adaptive equipmet, family can perform post d/c) Toileting Hygiene (QC): 6 Toilet Transfer (QC): 6 At OT arrival, pt reports discharging at 0830 for scheduled surgery. Per RN, surgery had been pushed back and pt is supposed to discharge at 1000. Pt was already dressed for the day and declined bathing task. Pt has been set up assist for bathing in past sessions and has needed assist with threading R foot into LB clothing. His reports that she will assist with step at home as they are not interested in purchasing a digital archivist. Pt was able to ambulate to/from toilet and perform all steps without assist. Ghulam johnson still needed to don socks, again because pt refuses to use adaptive equipment and family report they will comp lete once home. Pt unable to don shoes at this time due to swelling in LE's. He stood at the sink for grooming tasks, no assist or cues required. Other Treatment Pt ambulated to/from closet, able to retrieve clothes and place in bag for upcoming discharge. No cues for adherence to spinal precautions required. Mild SOB still notable with exertion, improves quickly with rest break. Education OT Patient Education: Correct positioning, Energy conservation, Modified ADL techniques, Progress toward Goal/Update tx plan, Purpose of tx/functional activities, Reviewed precautions, Safety issues Teaching Recipient: Patient Teaching Methods: Discussion Response to Teaching: Verbalize Understanding, Return Demonstration OT Short Term Goals Short Term Goals Time Frame: May 16, 2021 Eatin Oral hygiene: 6 Toileting hygiene: 5 Shower/bathe self: 4 Upper body dressin Lower body dressin Putting on/taking off footwear: 3 OT Provider Network Manager Goals Provider Network Manager Goals Time Frame: May 23, 2021 Eating (QC): 6 Oral Hygiene (QC): 6 Toileting Hygiene (QC): 6 Shower/Bathe Self (QC): 5 Upper Body Dressing (QC): 6 Lower Body Dressing (QC): 6 On/Off Footwear (QC): 5 1=Demonstrate adherence to instructed precautions during ADL tasks. 2=Patient will verbalize/demonstrate understanding of assistive devices/modifications for ADL. 3=Patient will improve strength/tolerance for activity to enable patient to perform ADL's. OT Education/Plan Problem List/Assessment Assessment: Decreased Activ Tolerance, Decreased UE Strength, Impaired Self- Care Skills, Restricted Funct UE ROM Discharge Recommendations Plan/Recommendations: Continue POC Therapy Discharge Recommendati: Homemaker Support, Post Acute OT (Home health OT) Treatment Plan/Plan of Care Treatment,Training & Education: Yes Patient would benefit from OT for education, treatment and training to promote independence in ADL's, mobility, safety and/or upper extremity function for ADL's. Plan of Care: ADL Retraining, Functional Mobility, Group Exercise/Act as Ind, UE Funct Exercise/Act Treatment Duration: May 23, 2021 Frequency: At least 5 of 7 days/Wk (IRF) Estimated Hrs Per Day: 1.5 hours per day Agreement: Yes Rehab Potential: Good Time/GCodes Start Time: 07:40 Stop Time: 08:00 Total Time Billed (hr/min): 20 Billed Treatment Time 1 visit ADL Simona Paul OT May 19, 2021 09:23
--- NOTE | 2021-05-19 09:24 | Physical Therapy Daily Note ---
PT Daily Note-Current Subjective Patient in recliner pre tx, agrees to PT, has 7/10 pain in back, nurse states he recently had pain meds. Appearance Patient in recliner post tx with nurse call, phone, tray, all needs met. Mental Status Patient Orientation: Person, Place, Situation back brace Transfers SCALE: Activities may be completed with or without assistive devices. 2-Xhwynwopvw-rvyyunk completes the activity by him/herself with no assistance from a helper. 5-Set-up or Clean-up Assistance-helper sets up or cleans up; patient completes activity. [place] assists only prior to or following the activity. 4-Supervision or Touching Assistance-helper provides verbal cues and/or touching/steadying and/or contact guard assistance as patient completes activity. Assistance may be provided throughout the activity or intermittently. 3-Partial/Moderate Assistance-helper does LESS THAN HALF the effort. [place] lifts, holds or supports trunk or limbs, but provides less than half the effort. 2-Substantial/Maximal Assistance-helper does MORE THAN HALF the effort. [place] lifts or holds trunk or limbs and provides more than half the effort. 9-Suasykkzh-uwoxxo does ALL the effort. Patient does none of the effort to complete the activity. Or, the assistance of 2 or more helpers is required for the patient to complete the activity. If activity was not attempted, code reason: 7-Patient Refused. 9-Not Applicable-not attempted and the patient did not perform the activity before the current illness, exacerbation or injury. 10-Not Attempted due to Environmental Limitations-(lack of equipment, weather restraints, etc.). 88-Not Attempted due to Medical Conditions or Safety Concerns. Roll Left & Right (QC): 6 Sit to Lying (QC): 6 Lying to Sitting/Side of Bed(Q: 6 Sit to Stand (QC): 6 Chair/Oas-iu-Tlgyg Xfer(QC): 6 Toilet Transfer (QC): 6 Car Transfer (QC): 6 Patient performs rolling and supine <-> sit with independence, sit <-> stand and transfers with independence, car transfer independent. Patient use the restroom before leaving his room he did need help to pull his pants back up because he cannot bend over to do it. Weight Bearing Full Weight Bearing Full Weight Bearing back precautions Gait Training Distance: 300' Walk 10 feet (QC): 6 Walk 50 ft with 2 Turns(QC): 6 Walk 150 ft (QC): 6 Walking 10ft/uneven surface-QC: 6 Gait Assistive Device: FWW Patient can ambulate 300' with a rolling walker with independence (including 50' with at least 2 turns of 90 degrees and 10' over an uneven surface), slow but steady ambulation Wheelchair Training Does the Pt Use a Wheelchair?: No Stair Training Stair Training: Handrails/: 2 handrails #of Steps: 12 1 Step (curb) (QC): 4 4 Steps (QC): 4 12 Steps (QC): 4 Stairs: Pattern: Reciprocal Patient can go up and down 12 steps using 2 handrails with SBA, he does have some unsteady moments but no LOB Balance Picking up an Object (QC): 6 (using paramedical aide) Treatments bed mobility and transfers, ambulation, stair training Assessment Current Status: Fair Progress improving general mobility, patient is going back to have back surgery again today PT Short Term Goals Short Term Goals Time Frame: May 16, 2021 Roll Left & Right: 4 (SBA) Sit to lyin (SA) Lying to sitting on side of be: 4 (SBA) Sit to stand: 4 (SBA) Chair/ndx-iz-nimrl transfer: 4 (SBA) Walk 10 feet: 4 (SBA) Walk 50 feet with two turns: 4 (SBA) Walk 150 feet: 4 (SBA) PT Prison Goals Prison Goals PT Prison Goals Time Frame: May 30, 2021 Roll Left & Right (QC): 6 Sit to Lying (QC): 6 Lying-Sitting on Side/Bed(QC): 6 Sit to Stand (QC): 6 Chair/Rmu-bq-Oczqz Xfer(QC): 6 Toilet Transfer (QC): 6 Car Transfer (QC): 6 Does the Patient Walk: Yes Walk 10 feet (QC): 6 Walk 50ft with 2 Turns (QC): 6 Walk 150 ft (QC): 6 Walking 10ft on Uneven Surface: 6 1 Step (curb) (QC): 4 (SBA) 4 Steps (QC): 4 (SBA) 12 Steps (QC): 88 Picking up an Object (QC): 6 Wheel 50 feet with 2 turns (QC: 9 Wheel 150 feet: 9 PT Plan Problem List Problem List: Activity Tolerance, Functional Strength, Safety, Balance, Gait, Transfer, Bed Mobility, ROM Treatment/Plan Treatment Plan: Continue Plan of Care Treatment Plan: Bed Mobility, Education, Functional Activity [place], Functional Strength, Group Therapy, Gait, Safety, Therapeutic Exercise, Transfers Treatment Duration: May 30, 2021 Frequency: At least 5 of 7 days/Wk (IRF) Estimated Hrs Per Day: 1.5 hours per day Patient and/or Family Agrees t: Yes Safety Risks/Education Patient Education: Gait Training, Transfer Techniques, Steps, Reviewed Precautions, Correct Positioning, Reviewed Don/Doff Brace, Safety Issues Teaching Recipient: Patient Teaching Methods: Demonstration, Discussion Response to Teaching: Reinforcement Needed Time/GCodes Time In: 899 Time Out: 919 Total Billed Treatment Time: 20 Total Billed Treatment 1 visit FA 20' GILDARDO GUERRA PT May 19, 2021 09:24
--- NOTE | 2021-05-19 09:28 | Therapy Team Discharge Summary ---
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 Upon evaluation patient performs rolling and supine <-> sit with min assist, sit <-> stand and transfers with CGA, car transfer CGA, ambulate 50' with a rolling walker with CGA (including 50' with at least 2 turns of 90 degrees and 10' over an uneven surface), went up and down 1 step using a rolling walker with CGA, and picked up an object from the floor with CGA using a it business process architect. Patient has been performing bed mobility and transfer training, balance and endurance training, functional strengthening, stair training, gait training, and education. Patient has made good progress and has met all of his custodial goals. Now, patient performs rolling and supine <-> sit with independence, sit <-> stand and transfers with independence, car transfer independent, ambulate 300' with a rolling walker with independence (including 50' with at least 2 turns of 90 degrees and 10' over an uneven surface), can go up and down 12 steps using 2 handrails with SBA, and can pickle maker an object from the floor with a it business process architect with independence. Patient is being discharged from this facility today and will be discharged from PT at this time. Roll Left to Right (QC): 6 Sit to Lying (QC): 6 Lying to Sitting/Side of Bed(Q: 6 Sit to Stand (QC): 6 Chair/Wam-wl-Sfnac Xfer(QC): 6 Toilet Transfer (QC): 6 Car Transfer (QC): 6 Does the Patient Walk: Yes Mode of Locomotion: Walk Anticipated Mode of Locomotion: Walk Walk 10 feet (QC): 6 Walk 50 ft with 2 Turns(QC): 6 Walk 150 ft (QC): 6 Walking 10ft on uneven surface: 6 Distance: 50'x2 Gait Assistive Device: FWW Does the Pt Use a Wheelchair: No Wheel 50 ft with 2 turns (QC): 9 Wheel 150 ft (QC): 9 #of Steps: 12 1 Step (curb) (QC): 4 4 Steps (QC): 4 12 Steps (QC): 4 Walking Assistive Device: Walker Balance Sitting Static: Good Balance Sitting Dynamic: Good Balance-Standing Static: Good Picking up an Object (QC): 6 (using it business process architect) Occupational Therapy Decreased Activ Tolerance, Decreased UE Strength, Impaired I ADL's, Impaired Self-Care Skills Eating (QC): 6 Oral Hygiene (QC): 4 (pt reports he only rinses dentures. Able to perform standing at sink with CGA) Shower/Bathe Self (QC): 5 (per clinical judgment) Upper Body Dressing (QC): 5 Lower Body Dressing (QC): 3 On/Off Footwear (QC): 1 Toileting Hygiene (QC): 6 PT Detention Goals Speech And Language Specialist Goals PT Detention Goals Time Frame: May 30, 2021 Roll Left to Right (QC): 6 Sit to Lying (QC): 6 Lying-Sitting on Side/Bed(QC): 6 Sit to Stand (QC): 6 Chair/Lfx-pe-Zpybc Xfer(QC): 6 Car Transfer (QC): 6 Does the Patient Walk: Yes Walk 10 feet (QC): 6 Walk 10ft-Uneven Surface(QC): 6 Walk 50ft with 2 Turns (QC): 6 Walk 150 ft (QC): 6 Wheel 50 feet with 2 turns (QC: 9 1 Step (curb) (QC): 4 (SBA) 4 Steps (QC): 4 (SBA) 12 Steps (QC): 88 Picking up an Object (QC): 6 OT Speech And Language Specialist Goals Speech And Language Specialist Goals Time Frame: May 23, 2021 Eating (QC): 6 Oral Hygiene (QC): 6 Shower/Bathe Self (QC): 5 Upper Body Dressing (QC): 6 Lower Body Dressing (QC): 6 On/Off Footwear (QC): 5 Toileting Hygiene (QC): 6 Toilet/Commode Transfer (QC): 6 1=Demonstrate adherence to instructed precautions during ADL tasks. 2=Patient will verbalize/demonstrate understanding of assistive devices/modifications for ADL. 3=Patient will improve strength/tolerance for activity to enable patient to perform ADL's. GILDARDO GUERRA PT May 19, 2021 09:28
--- NOTE | 2021-05-19 13:03 | Therapy Team Discharge Summary ---
Therapy Discharge Summary Discharge Recommendations Date of Discharge May 19, 2021 at 11:00 Therapy D/C Recommendations: Occupational Therapy Home Care Physical Therapy Roll Left to Right (QC): 6 Sit to Lying (QC): 6 Lying to Sitting/Side of Bed(Q: 6 Sit to Stand (QC): 6 Chair/Ejq-gb-Gkqbp Xfer(QC): 6 Toilet Transfer (QC): 6 Car Transfer (QC): 6 Does the Patient Walk: Yes Mode of Locomotion: Walk Anticipated Mode of Locomotion: Walk Walk 10 feet (QC): 6 Walk 50 ft with 2 Turns(QC): 6 Walk 150 ft (QC): 6 Walking 10ft on uneven surface: 6 Distance: 50'x2 Gait Assistive Device: FWW Does the Pt Use a Wheelchair: No Wheel 50 ft with 2 turns (QC): 9 Wheel 150 ft (QC): 9 #of Steps: 12 1 Step (curb) (QC): 4 4 Steps (QC): 4 12 Steps (QC): 4 Walking Assistive Device: Walker Balance Sitting Static: Good Balance Sitting Dynamic: Good Balance-Standing Static: Good Picking up an Object (QC): 6 (using silverware supervisor) Occupational Therapy 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 Upon evaluation he was max a with footwear, LB dressing, mod a for toileting, bathing, min a for upper body dressing, and cga for oral care. While on Rehab, OT focused on improving UE strength, balance, endurance, adaptive strategies, energy conservation techniques, adherence to spinal precautions and use of adaptive equipment in order to increase indep and safety with adls and functional transfers. 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 Goals that were not met are due to pt's/family refusal to use adaptive equipment and reporting that family will assist with those tasks at home. Patient is being discharged from this facility today and will be discharged from OT at this time. Decreased Activ Tolerance, Decreased UE Strength, Impaired Self-Care Skills, Restricted Funct UE ROM Eating (QC): 6 Oral Hygiene (QC): 6 Shower/Bathe Self (QC): 5 (per clinical judgment) Upper Body Dressing (QC): 6 Lower Body Dressing (QC): 3 (Min a for RLE only, declines using AE, family can assist) On/Off Footwear (QC): 2 (declines adaptive equipmet, family can perform post d/c) Toileting Hygiene (QC): 6 PT Yacht Rigger Goals Detention Goals PT Yacht Rigger Goals Time Frame: May 30, 2021 Roll Left to Right (QC): 6 Sit to Lying (QC): 6 Lying-Sitting on Side/Bed(QC): 6 Sit to Stand (QC): 6 Chair/Kwq-wu-Adpzi Xfer(QC): 6 Car Transfer (QC): 6 Does the Patient Walk: Yes Walk 10 feet (QC): 6 Walk 10ft-Uneven Surface(QC): 6 Walk 50ft with 2 Turns (QC): 6 Walk 150 ft (QC): 6 Wheel 50 feet with 2 turns (QC: 9 1 Step (curb) (QC): 4 (SBA) 4 Steps (QC): 4 (SBA) 12 Steps (QC): 88 Picking up an Object (QC): 6 OT Detention Goals Detention Goals Time Frame: May 23, 2021 Eating (QC): 6 (met) Oral Hygiene (QC): 6 (met) Shower/Bathe Self (QC): 5 (met) Upper Body Dressing (QC): 6 (met) Lower Body Dressing (QC): 6 (not met, see notes) On/Off Footwear (QC): 5 (not met, see notes) Toileting Hygiene (QC): 6 (met) Toilet/Commode Transfer (QC): 6 (met) 1=Demonstrate adherence to instructed precautions during ADL tasks. 2=Patient will verbalize/demonstrate understanding of assistive devices/modifications for ADL. 3=Patient will improve strength/tolerance for activity to enable patient to perform ADL's. Simona Paul OT May 19, 2021 13:03
== END 2021-05-19 11:00 | disposition home or self-care (01) | DRG 551 ==
PROVIDERS: ADMIT Internal Medicine; ATTEND Internal Medicine
DX: M47.16 Other spondylosis with myelopathy, lumbar region (principal); J69.0 Pneumonitis due to inhalation of food and vomit; I48.20 Chronic atrial fibrillation, unspecified; I42.9 Cardiomyopathy, unspecified; J44.0 Chronic obstructive pulmonary disease with (acute) lower respiratory infection; R78.81 Bacteremia; T81.31XA Disruption of external operation (surgical) wound, not elsewhere classified, initial encounter; T81.41XA Infection following a procedure, superficial incisional surgical site, initial encounter; E46 Unspecified protein-calorie malnutrition; D61.818 Other pancytopenia; E87.6 Hypokalemia; I10 Essential (primary) hypertension; I25.10 Atherosclerotic heart disease of native coronary artery without angina pectoris; E78.00 Pure hypercholesterolemia, unspecified; E78.5 Hyperlipidemia, unspecified; E11.40 Type 2 diabetes mellitus with diabetic neuropathy, unspecified; N40.1 Benign prostatic hyperplasia with lower urinary tract symptoms; R33.8 Other retention of urine; K59.00 Constipation, unspecified; I35.0 Nonrheumatic aortic (valve) stenosis; K21.9 Gastro-esophageal reflux disease without esophagitis; M19.91 Primary osteoarthritis, unspecified site; F41.9 Anxiety disorder, unspecified; D64.9 Anemia, unspecified; B95.61 Methicillin susceptible Staphylococcus aureus infection as the cause of diseases classified elsewhere; Z98.1 Arthrodesis status; Z79.01 Long term (current) use of anticoagulants; Z87.891 Personal history of nicotine dependence; Z95.5 Presence of coronary angioplasty implant and graft; Z95.1 Presence of aortocoronary bypass graft; Z79.84 Long term (current) use of oral hypoglycemic drugs; Z68.36 Body mass index [BMI] 36.0-36.9, adult
CPT/HCPCS: 36415; 36569; 71045; 76937; 80048; 80053; 82607; 83540; 83735; 84134; 84145; 85025; 85027; 87070; 87077; 87186; 87205; 93005; 93306; 94760

== ENCOUNTER → 2021-05-23 | Outpatient (CLI) | payer MEDICARE, OTHER ==
[~2021-05-23] MED LIST changes: +ACHYD1T PO; +ALTEPLASE 2 MG (CATHFLO) IV ONE; +ALTEPLASE 2 MG (CATHFLO) ONE; +APIX5TAB PO; +BACL10TA PO; -BAMLANIVIMAB 700 MG in NS 200 ML IV ONE; +BETA1TAB15 PO; +BETH25TA2 PO; +CEFT1PIG IV; +CLOP75TA69 PO; +COLE1TAB PO; +CYAN-41 PO; +DICL20GE TP; +DICY10CA12 PO; +DILT300C52 PO; +DILT300C64 PO; -EPINEPHrine INJECTION 1 MG/ML AMP IM PRN; +FLUT9.9S NSEACH; +FURO40TA4 PO; +LENA10CA PO; +LINA290C PO; +METF-397 PO; +METO50TA7 PO; +NALO4SPR3; +NITR0.4T39 SL; +PANT40TA52 PO; +POLY17PO6 PO; +POTA-160 PO; +RT-ALBUINH IH; +SPIR25TA5 PO; +TMSL.4C PO; -diphenhydrAMINE 50 MG/ML INJ (BENADRYL) IV PRN
[2021-05-23 12:20] VITALS: BP 100/63
== END ==
LOC: SDC 12:00
PROVIDERS: ATTEND Internal Medicine
DX: R91.8 Other nonspecific abnormal finding of lung field (principal); J90 Pleural effusion, not elsewhere classified
CPT/HCPCS: 76937

== ENCOUNTER 2021-10-02 16:50 | Emergency (ER) | payer MEDICARE, OTHER ==
[~2021-10-02] VITALS: Ht 175 cm; Wt 100.0 kg
[~2021-10-02 16:50] MED LIST changes: -ALTEPLASE 2 MG (CATHFLO) IV ONE; -ALTEPLASE 2 MG (CATHFLO) ONE
[2021-10-02] MEDS ORDERED: BEBTELOVIMAB 175 MG/2 ML VIAL IV ONE (18:00)
--- NOTE | 2021-10-02 18:32 | ED Cough/URI ---
General Chief Complaint: COVID19 Suspect/Confirmed Stated Complaint: COVID POSITIVE Nursing Triage Note: PT STATES HE HAS BEEN ON ABX FOR 2 WEEKS FOR "BOOD INFECTION" STATES HE TESTED COVID + AT [facility] TODAY AND THEY TOLD HIM TO COME HERE FOR AN INFUSION. CC OF SORE THROAT, RUNNY NOSE, AND DIARRHEA Source: patient Exam Limitations: no limitations History of Present Illness Date Seen by Provider: Oct 02, 2021 Time Seen by Provider: 18:31 Initial Comments This is a well-appearing 76-year-old male who presented to the ER for monoclonal antibody infusion. States that he tested positive for COVID today. He woke this morning with a sore throat, presented to the [facility] and had a positive COVID test. His current complaint is some congestion with sore throat. No fever, chills, cough, shortness of breath, chest pain, nausea, vomiting, diarrhea, abdominal pain. He has had 2 Moderna Vaccines. Allergies and Home Medications Allergies Coded Allergies: No Known Drug Allergies (Unverified , 03/21/20) Patient Home Medication List Home Medication List Reviewed: Yes Albuterol Sulfate (Proair Hfa) 1 Puff Puff, 2 PUFF IH Q4H PRN for SHORTNESS OF BREATH, (Reported) Entered as Reported by: BERNARDO RODRIGUEZ on 05/09/21 1258 Apixaban (Eliquis) 5 Mg Tablet, 5 MG PO BID Prescribed by: DIANE DAMIAN on 05/19/21 0640 Baclofen (Baclofen) 10 Mg Tablet, 10 MG PO TID PRN for MUSCLE SPASMS Prescribed by: DIANE DAMIAN on 05/19/21 0640 Bethanechol Chloride (Bethanechol Chloride) 25 Mg Tablet, 25 MG PO ACHS Prescribed by: DIANE DAMIAN on 05/19/21 0640 Ceftriaxone Na/Dextrose,Iso (Ceftriaxone 1 gm-D5w Bag) 1 Gm/50 Ml Piggyback, 1 GM IV BID Prescribed by: DIANE DAMIAN on 05/19/21 0640 Clopidogrel Bisulfate (Plavix) 75 Mg Tablet, 75 MG PO DAILY Prescribed by: DIANE DAMIAN on 05/19/21 0640 Cyanocobalamin (Vitamin B-12) (Vitamin B-12) 1,000 Mcg Tablet, 1,000 MCG PO DAILY@0700 Prescribed by: DIANE DAMIAN on 05/19/21 0640 Diclofenac Sodium (Voltaren Arthritis Pain) 20 Gm Gel..gram., 1 APPLIC TP Q6H PRN for PAIN-BREAKTHROUGH, (Reported) Entered as Reported by: BERNARDO RODRIGUEZ on 05/09/21 1258 Dicyclomine HCl (Dicyclomine HCl) 10 Mg Capsule, 10 MG PO QID PRN for STOMACH CRAMPS, (Reported) Entered as Reported by: BERNARDO RODRIGUEZ on 05/09/21 125 Diltiazem HCl (Diltiazem 24Hr ER) 300 Mg Cap.er.24h, 300 MG PO DAILY, (Reported) Entered as Reported by: BERNARDO RODRIGUEZ on 05/09/21 1313 Fluticasone Propionate (Flonase Allergy Relief) 9.9 Ml Lincoln.susp, 2 SPRAY NSEACH HS, (Reported) Entered as Reported by: BERNARDO RODRIGUEZ on 05/09/21 1258 Furosemide (Furosemide) 40 Mg Tablet, 40 MG PO DAILY, (Reported) Entered as Reported by: BERNARDO RODRIGUEZ on 05/09/21 1258 Hydrocodone Bit/Acetaminophen (HYDROcodone/APAP 10/325 TABLET) 1 Ea Tab, 1-2 EA PO Q4H PRN for PAIN-MODERATE (5-7) Prescribed by: DIANE DAMIAN on 05/19/21 0640 Lenalidomide (Revlimid) 10 Mg Capsule, 10 MG PO HS, (Reported) Entered as Reported by: BERNARDO RODRIGUEZ on 05/09/21 1313 Linaclotide (Linzess) 290 Mcg Capsule, 290 MCG PO DAILY, (Reported) Entered as Reported by: BERNARDO RODRIGUEZ on 05/09/21 1258 Metformin HCl (Metformin HCl) 500 Mg Tablet, 500 MG PO HS, (Reported) Entered as Reported by: BERNARDO RODRIGUEZ on 05/09/21 1258 Metoprolol Succinate (Metoprolol Succinate) 50 Mg Tab.er.24h, 50 MG PO BID, (Reported) Entered as Reported by: BERNARDO RODRIGUEZ on 05/09/21 1258 Naloxone HCl (Naloxone HCl) 4 Mg Lincoln, 1 SPRAY NA UD PRN for OPIOID OVERDOSE, (Reported) Entered as Reported by: BERNARDO RODRIGUEZ on 05/09/21 1319 Nitroglycerin (Nitroglycerin) 0.4 Mg Tab.subl, 0.4 MG SL UD PRN for CHEST PAIN, (Reported) Entered as Reported by: BERNARDO RODRIGUEZ on 05/09/21 125 Pantoprazole Sodium (Pantoprazole Sodium) 40 Mg Tablet.dr, 40 MG PO DAILY, (Reported) Entered as Reported by: BERNARDO RODRIGUEZ on 05/09/21 125 Polyethylene Glycol 3350 (Miralax) 17 Gm Powd.pack, 17 GM PO DAILY PRN for CONSTIPATION-2ND LINE, (Reported) Entered as Reported by: BERNARDO RODRIGUEZ on 05/09/21 125 Potassium Chloride (Klor-Con 10) 10 Meq Tablet.er, 10 MEQ PO BID WITH MEALS Prescribed by: DIANE DAMIAN on 05/19/21 06 Spironolactone (Spironolactone) 25 Mg Tablet, 25 MG PO DAILY, (Reported) Entered as Reported by: BERNARDO RODRIGUEZ on 05/09/21 125 Tamsulosin HCl (Flomax) 0.4 Mg Cap, 0.4 MG PO BIDPC Prescribed by: DIANE DAMIAN on 05/19/21 06 Vit A/Vit C/Vit E/Zinc/Copper (Preservision Areds Tablet) 1 Each Tablet, 1 EACH PO DAILY, (Reported) Entered as Reported by: BERNARDO RODRIGUEZ on 05/09/21 125 Review of Systems Review of Systems Constitutional: no symptoms reported EENTM: throat pain Respiratory: no symptoms reported Cardiovascular: no symptoms reported Gastrointestinal: no symptoms reported Genitourinary: no symptoms reported Musculoskeletal: no symptoms reported Skin: no symptoms reported Psychiatric/Neurological: No Symptoms Reported Hematologic/Lymphatic: No Symptoms Reported Immunological/Allergic: no symptoms reported Past Tkhkryh-Ufguho-Nghzll Hx Patient Social History Tobacco Use?: Yes Tobacco type used: Cigarettes Smoking Status: Former Smoker Substance use?: No Alcohol Use?: No Immunizations Up To Date First/Initial COVID19 Vaccinat: aprox June 2020 Second COVID19 Vaccination Joni: aprox July 2020 Third COVID19 Vaccination Date: aprox June 2020 Past Medical History Surgery/Hospitalization HX: A FIB, TYPE II DIABETIC, CAD Orthopedic Currently Using CPAP: No Atrial Fibrillation, Cardiomyopathy, Chronic Edema/Swelling, Coronary Artery Disease, High Cholesterol, Hypertension Neuropathy Benign Prostatic Hyperpl, Renal Failure Gastroesophageal Reflux Arthritis, Chronic Back Pain Diabetes, Insulin dep Physical Exam Vital Signs - First Documented 10/02/21 17:31 Temp 37.3 Pulse 89 Resp 20 B/P (MAP) 148/70 (96) O2 Delivery Room Air Capillary Refill : Less Than 3 Seconds Height: '" Weight: lbs. oz. kg; 32.00 BMI Method: General Appearance: WD/WN, no apparent distress Eyes: Bilateral Eye Normal Inspection, Bilateral Eye PERRL, Bilateral Eye EOMI HEENT: PERRL/EOMI, normal ENT inspection, pharynx normal Neck: full range of motion, normal inspection Respiratory: lungs clear, normal breath sounds, no respiratory distress, no accessory muscle use Cardiovascular: regular rate, rhythm, no murmur Gastrointestinal: normal bowel sounds, non tender, soft Extremities: normal range of motion, non-tender, normal inspection, no pedal edema Neurologic/Psychiatric: no motor/sensory deficits, alert, normal mood/affect, oriented x 3 Skin: normal color, warm/dry Progress/Results/Core Measures Suspected Sepsis SIRS Temperature: Pulse: 89 Respiratory Rate: 20 Blood Pressure 148 /70 Mean: 96 Results/Orders My Orders Orders - BHAVYA BAEZ APRN Bebtelovimab (Bebtelovimab) (10/02/21 18:00) Nursing Communication (Order) (10/02/21 17:56) Medications Given in ED Current Medications Medications Dose Ordered Sig/Wil Route Start Time Stop Time Status Last Admin Dose Admin Bebtelovimab 175 mg ONCE ONCE IV 10/02/21 18:00 10/02/21 18:01 DC 10/02/21 18:33 175 MG Vital Signs/I&O 10/02/21 10/02/21 17:31 17:50 Temp 37.3 Pulse 89 Resp 20 B/P (MAP) 148/70 (96) O2 Delivery Room Air Room Air Capillary Refill : Less Than 3 Seconds Blood Pressure Mean: 96 Progress Note : Progress Note Reviewed risk/benefits and alternatives to taking Bebtelovimab infusion. He would like to proceed with infusion. Departure Impression Primary Impression: COVID-19 Disposition: 01 HOME, SELF-CARE Condition: Stable/Unchanged Departure-Patient Inst. Decision time for Depature: 18:52 Referrals: JUDITH FRANCISCO DO (PCP/Family) Primary Care Physician Patient Instructions: Bebtelovimab FDA Fact Sheet Add. Discharge Instructions: Plan: 1. Isolate at home for 5 days, then you can mask for an additional 5 days. 2. Return to ER for any new, concerning, or worsening symptoms. All discharge instructions reviewed with patient and/or family. Voiced und erstanding. BHAVYA BAEZ ENERGY PROFESSIONAL Oct 02, 2021 18:32
[2021-10-02 19:33] VITALS: BP 126/72
== END 2021-10-02 19:34 | disposition home or self-care (01) ==
LOC: EDUNIT# 16:50 → ER 16:53
DX: U07.1 COVID-19 (principal); E11.40 Type 2 diabetes mellitus with diabetic neuropathy, unspecified; Z73.0 Burn-out; Z79.4 Long term (current) use of insulin; Z87.891 Personal history of nicotine dependence

== ENCOUNTER → 2022-11-10 | Outpatient (CLI) | payer MEDICARE, OTHER ==
[~2022-11-10] MED LIST changes: +ALBU8.5H6 IH; +CLOP-31 PO; -CLOP75TA69 PO; -RT-ALBUINH IH
--- NOTE | 2022-11-10 15:37 | Diagnostic Imaging Report ---
EXAMINATION: Lumbar spine four views or more. HISTORY: Lumbar radiculopathy. COMPARISON: None available. FINDINGS: There has been instrumented fusion of the sacroiliac joints through T10. There is a fracture of the connecting cecy at the level of L3. There is no traumatic malalignment. Vertebral body heights are normal. There is severe disc height loss at all levels in the lumbar spine. There has been an anterior fusion of L4-L5 and L5-S1. IMPRESSION: 1. Long segment fusion of the thoracolumbar spine with fracturing of the connecting cecy at the level of L3. 2. Severe disc height loss throughout the lumbar spine. Dictated by: Dictated on workstation # [id number]
== END ==
LOC: RAD 11:15
PROVIDERS: ATTEND Nurse Practitioner
DX: M51.16 Intervertebral disc disorders with radiculopathy, lumbar region (principal); M43.25 Fusion of spine, thoracolumbar region
CPT/HCPCS: 72110